=== PATIENT | male | born 1965 | race American Indian/Alaskan Native ===

== ENCOUNTER 2018-02-28 14:11 | Emergency (ER) | payer SELFPAY ==
[2018-02-28 14:56] LABS: Basophils # (Auto) 0.1 K/mm3 (0.0-0.1); Basophils % (Auto) 0.5 % (0.0-1.8); Eosinophils % (Auto) 0.1 % (0.0-4.3); Hematocrit 46.8 % (35.5-45.6); Hemoglobin 15.7 gm/dl (11.8-15.2); Lymphocytes # (Auto) 3.2 K/mm3 (1.2-5.4); Lymphocytes % (Auto) 26.3 % (13.4-35.0); Mean Corpuscular HGB Conc 34 % (32-34); Mean Corpuscular Hemoglobin 30 pg (28-32); Mean Corpuscular Volume 90 fl (84-94); Monocytes # (Auto) 0.3 K/mm3 (0.0-0.8); Monocytes % (Auto) 2.7 % (0.0-7.3); Platelet Count 148 K/mm3 (140-440); Red Blood Count 5.23 M/mm3 (3.65-5.03); Red Cell Distribution Width 13.7 % (13.2-15.2)
[2018-02-28 15:08] LABS: BUN/Creatinine Ratio 20; Blood Urea Nitrogen 16 mg/dL (9-20); Calcium 8.6 mg/dL (8.4-10.2); Hemolysis Index 14
[2018-02-28] MEDS ORDERED: NACL 0.9% 1000 ML 1,000 ML IV ONE ×2 (15:28→20:47)
[2018-02-28] MEDS ORDERED: ZOFRAN ONE ×2 (15:53→21:19)
[2018-02-28] MEDS ORDERED: ZOFRAN IV ONE ×2 (15:58→21:25)
[2018-02-28] MEDS ORDERED: ATIVAN IV ONE (16:12)
[2018-02-28] MEDS ORDERED: VITAMIN B-1 100 MG, FOLVITE 1 MG, INFUVITE 10 ML in NACL 0.9% 1000 ML 1,000 ML IV ONE (17:00)
[2018-02-28 18:00] LABS: Alanine Aminotransferase 19 units/L (7-56); Albumin 4.1 g/dL (3.9-5); BUN/Creatinine Ratio 21; Blood Urea Nitrogen 15 mg/dL (9-20); Calcium 7.9 mg/dL (8.4-10.2); Hemolysis Index 44; Lipase 46 units/L (13-60)
[2018-02-28 18:14] LABS: Bilirubin,Urine NEG (Negative); Blood,Urine SM (Negative); Color,Urine Yellow (Yellow); Mucus,Urine FEW /HPF; Urobilinogen,Urine < 2.0 mg/dL (<2.0)
[2018-02-28 18:15] LABS: Granular Casts,Urine 2 /LPF
[2018-02-28 18:30] LABS: Amphetamine Screen,Urine PRESUMPTIVE NEGATIVE; Benzodiazepines Screen,Urine PRESUMPTIVE NEGATIVE; Cannabinoid Screen,Urine PRESUMPTIVE NEGATIVE; Cocaine Screen,Urine PRESUMPTIVE NEGATIVE; Methadone Screen,Urine PRESUMPTIVE NEGATIVE; Opiate Screen,Urine PRESUMPTIVE NEGATIVE
[2018-02-28] MEDS ORDERED: ATIVAN IV PRN ×4 (19:00→19:07)
[2018-02-28] MEDS ORDERED: ATIVAN ONE (19:00)
--- NOTE | 2018-02-28 20:51 | Emergency Department Report ---
ED Alcohol HPI - General Chief Complaint: Alcohol Stated Complaint: DETOX Time Seen by Provider: 02/28/18 16:12 Source: family Mode of arrival: Ambulatory Limitations: No Limitations - History of Present Illness Initial Comments: Pt is a 52 yo male here for etoh intoxication . Pt states he drank more than a pint of Gin but denied any drug use. Pt states that he had a recent binge but had last drank before this 9 months ago. Pt states that he has no chest pain, sob, or known , liver problems. Pt states that he relapsed but wouldn't say why. Complaint: alcohol intoxication, alcohol withdrawal Last Drink: just [employer] (8am) Recent Trauma: No Associated Symptoms: vomiting - Related Data Home Medications Medication Instructions Recorded Confirmed Last Taken No Known Home Medications [No 07/11/15 07/11/15 Unknown Reported Home Medications] Allergies Allergy/AdvReac Type Severity Reaction Status Date / Time No Known Allergies Allergy Unverified 07/11/15 16:17 ED Review of Systems ROS: Stated complaint: DETOX Other details as noted in HPI Constitutional: denies: diaphoresis Eyes: denies: eye discharge ENT: denies: epistaxis Respiratory: no symptoms reported. denies: shortness of breath Cardiovascular: denies: chest pain Endocrine: denies: excessive sweating Gastrointestinal: vomiting. denies: abdominal pain Neurological: denies: numbness Psychiatric: denies: auditory hallucinations, visual hallucinations, homicidal thoughts, suicidal thoughts ED Past Medical Hx - Past Medical History Previous Medical History?: Yes Hx Hypertension: Yes Hx Psychiatric Treatment: Yes (ETOH abuse) Additional medical history: Alcohol abuse - Surgical History Past Surgical History?: Yes Additional Surgical History: right knee surgery - Social History Smoking Status: Never Smoker Substance Use Type: Alcohol, Prescribed - Medications Home Medications: Home Medications Medication Instructions Recorded Confirmed Last Taken Type No Known Home Medications [No 07/11/15 07/11/15 Unknown History Reported Home Medications] ED Physical Exam - General Limitations: No Limitations General appearance: alert - Head Head exam: Present: atraumatic - Eye Eye exam: Present: normal appearance, PERRL - ENT ENT exam: Present: normal exam - Neck Neck exam: Present: normal inspection - Respiratory Respiratory exam: Present: normal lung sounds bilaterally - Cardiovascular Cardiovascular Exam: Present: tachycardia - GI/Abdominal GI/Abdominal exam: Present: soft, normal bowel sounds. Absent: distended, tenderness, guarding, rebound - Extremities Exam Extremities exam: Present: normal inspection, full ROM - Back Exam Back exam: Present: normal inspection - Neurological Exam Neurological exam: Present: alert, oriented X3, CN II-XII intact - Psychiatric Psychiatric exam: Absent: homicidal ideation, suicidal ideation - Skin Skin exam: Present: warm, dry, intact ED Course Vital Signs 02/28/18 02/28/18 02/28/18 14:33 15:58 17:24 Temperature 98.4 F Pulse Rate 141 H 122 H 126 H Respiratory 22 20 18 Rate Blood Pressure 133/89 Blood Pressure 140/64 130/66 [Right] O2 Sat by Pulse 96 96 96 Oximetry - Reevaluation(s) Reevaluation #1: 02/28/18 20:51 Pt is metabolizing his etoh and is on the CIWA protocol. 02/28/18 20:53 will give fluid boluses; pt acutely intoxicated. ED Medical Decision Making - Lab Data Result diagrams: 02/28/18 14:40 02/28/18 16:38 - Medical Decision Making Pt 's heart rate is back in normal range; pt sleeping;pt's fiance here to take him home; will look into referral for etoh. Critical care attestation.: If time is entered above; I have spent that time in minutes in the direct care of this critically ill patient, excluding procedure time. ED Disposition Condition: Stable Referrals: PRIMARY CARE, [Primary Care Provider] - 3-5 Days
[2018-03-01 00:43] VITALS: BP 132/67
== END 2018-03-01 00:43 | disposition home or self-care (01) ==
LOC: ED 14:11
DX: F10.129 Alcohol abuse with intoxication, unspecified (principal); I10 Essential (primary) hypertension; Y90.9 Presence of alcohol in blood, level not specified
CPT/HCPCS: 36415; 80048; 80053; 80307; 81001; 82550; 83690; 83735; 85025; 93005; 93010; 96365; 96366; 96375; 96376; 99284; G0480; J2060; J2405; J3411; J7030; 80320

== ENCOUNTER 2018-03-01 11:48 | Emergency (ER) | payer SELFPAY ==
[2018-03-01] MEDS ORDERED: NACL 0.9% 1000 ML 1,000 ML ONE (12:31)
[2018-03-01] MEDS ORDERED: ATIVAN IV ONE (12:37)
[2018-03-01 12:45] LABS: Basophils % (Auto) 0.5 % (0.0-1.8); Eosinophils % (Auto) 0.2 % (0.0-4.3); Hematocrit 38.2 % (35.5-45.6); Hemoglobin 12.9 gm/dl (11.8-15.2); Lymphocytes # (Auto) 1.6 K/mm3 (1.2-5.4); Lymphocytes % (Auto) 18.5 % (13.4-35.0); Mean Corpuscular HGB Conc 34 % (32-34); Mean Corpuscular Hemoglobin 30 pg (28-32); Mean Corpuscular Volume 89 fl (84-94); Monocytes # (Auto) 0.3 K/mm3 (0.0-0.8); Monocytes % (Auto) 3.6 % (0.0-7.3); Platelet Count 100 K/mm3 (140-440); Red Blood Count 4.28 M/mm3 (3.65-5.03); Red Cell Distribution Width 13.3 % (13.2-15.2)
[2018-03-01] MEDS ORDERED: ZOFRAN IV ONE (12:45)
[2018-03-01] MEDS ORDERED: NACL 0.9% 1000 ML 1,000 ML IV ONE (12:45)
--- NOTE | 2018-03-01 12:45 | Emergency Department Report ---
HPI - General Chief Complaint: Alcohol Time Seen by Provider: 03/01/18 12:31 - HPI HPI: Room 22 The patient is a 52-year-old male presented with a chief complaint of alcoholism. The patient states he drinks approximately 1/5 of alcohol daily and last consumed yesterday morning. The patient came to the hospital yesterday for alcohol intoxication was given strong warnings to return should he develop symptoms of withdrawal. Patient states his morning the patient developed nausea vomiting and diaphoresis and began to feel "jittery" prompting him to come to the ED. Location: [See above] Duration: [See above] Quality: "Jittery" Severity: Moderate Modifying factors: [see above] Context: [see above] Mode of transportation: [not driving] ED Past Medical Hx - Past Medical History Previous Medical History?: Yes Hx Hypertension: Yes Hx Psychiatric Treatment: Yes (ETOH abuse) Additional medical history: Alcohol abuse - Surgical History Past Surgical History?: Yes Additional Surgical History: right knee surgery - Family History Family history: no significant - Social History Smoking Status: Never Smoker Substance Use Type: Alcohol (fifth of liquor daily) - Medications Home Medications: Home Medications Medication Instructions Recorded Confirmed Last Taken Type Ondansetron [Zofran Odt] 4 mg PO Q8HR 3 Days #12 tab.rapdis 02/28/18 Unknown Rx ED Review of Systems ROS: Stated complaint: ALCOHOL WITHDRAWALS Other details as noted in HPI Constitutional: diaphoresis Gastrointestinal: nausea, vomiting Neurological: other ("jittery") Physical Exam - Physical Exam Vital Signs: Vital Signs 03/01/18 11:53 Temperature 98.6 F Pulse Rate 103 H Respiratory 22 Rate Blood Pressure 166/95 O2 Sat by Pulse 97 Oximetry Physical Exam: GENERAL: The patient is well-developed well-nourished male lying on stretcher not appearing to be in acute distress. [] HEENT: Normocephalic. Atraumatic. Extraocular motions are intact. Patient has moist mucous membranes. NECK: Supple. Trachea midline CHEST/LUNGS: Clear to auscultation. There is no respiratory distress noted. HEART/CARDIOVASCULAR: Regular. There is no tachycardia. There is no gallop rub or murmur. ABDOMEN: Abdomen is soft, nontender. Patient has normal bowel sounds. There is no abdominal distention. SKIN: There is no rash. There is no edema. There is no diaphoresis. NEURO: The patient is awake, alert, and oriented. The patient is cooperative. The patient has no focal neurologic deficits. The patient has normal speech. No tremulousness noted MUSCULOSKELETAL: There is no evidence of acute injury. ED Course Vital Signs 03/01/18 11:53 Temperature 98.6 F Pulse Rate 103 H Respiratory 22 Rate Blood Pressure 166/95 O2 Sat by Pulse 97 Oximetry - Consultations Consultation #1: 03/01/18 13:43 Case discussed with mental health cosmetic sales consultant (Krystal)-has facility the patient can be sent to today ED Medical Decision Making - Lab Data Result diagrams: 03/01/18 12:22 03/01/18 12:22 - Differential Diagnosis alcoholism Critical care attestation.: If time is entered above; I have spent that time in minutes in the direct care of this critically ill patient, excluding procedure time. ED Disposition Clinical Impression: Alcoholism Disposition: DC/TX-70 ANOTHER TYPE HLTHCARE Is pt being admited?: No Does the pt Need Aspirin: No Condition: Stable Instructions: Abuse of Alcohol (ED), Alcohol Intoxication (ED) Additional Instructions: Return to the emergency department immediately should you develop worsening symptoms, fever, inability to tolerate food or liquid or any other concerns. Time of Disposition: 13:45
[2018-03-01 12:46] LABS: BUN/Creatinine Ratio 20; Blood Urea Nitrogen 12 mg/dL (9-20); Calcium 8.9 mg/dL (8.4-10.2); Hemolysis Index 6
[2018-03-01] MEDS ORDERED: ATIVAN IV PRN ×3 (12:54)
[2018-03-01] MEDS ORDERED: K-DUR PO ONE (13:43)
[2018-03-01] MEDS ORDERED: ZOFRAN ONE (15:15)
[2018-03-01 15:46] VITALS: BP 165/96
== END 2018-03-01 15:56 | disposition other institution (70) ==
LOC: ED 11:48
DX: F10.20 Alcohol dependence, uncomplicated (principal); I10 Essential (primary) hypertension; Y90.9 Presence of alcohol in blood, level not specified
CPT/HCPCS: 36415; 80048; 85025; 96361; 96374; 96375; 99283; G0480; J2060; J2405; J7030; 80320

== ENCOUNTER 2018-04-08 05:38 | Emergency (ER) | payer SELFPAY ==
[2018-04-08] MEDS ORDERED: VITAMIN B-1 100 MG in NACL 0.9% 50 ML IV ONE (06:00)
[2018-04-08] MEDS ORDERED: ATIVAN IV ONE ×2 (06:00→06:23)
[2018-04-08] MEDS ORDERED: NACL 0.9% 1000 ML 1,000 ML IV ONE ×2 (06:00→06:17)
[2018-04-08] MEDS ORDERED: VITAMIN B-1 100 MG, FOLVITE 1 MG, INFUVITE 10 ML, MAGNESIUM SULFATE 2 GM in NACL 0.9% 1... IV ONE (06:17)
--- NOTE | 2018-04-08 06:23 | Emergency Department Report ---
HPI - General Chief Complaint: Alcohol Time Seen by Provider: 04/08/18 06:11 - HPI HPI: Room 6 The patient is a 52-year-old male presenting with a chief complaint of alcohol withdrawal. The patient states he normally consumes approximately 1 pint of alcohol daily. The patient states he attempted to wean himself off alcohol the past 3-4 days gradually decreasing the amount he consumes. Patient states his last consumption occurred at 23:00 last night. Patient states since then he's had nausea and vomiting, shaking and he feels dehydrated as well as confused at times. The patient states he's been through alcoholic withdrawal in the past and this feels the same. Location: [See above] Duration: [See above] Quality: Nausea, Severity: Moderate Modifying factors: [see above] Context: [see above] Mode of transportation: [not driving] ED Past Medical Hx - Past Medical History Previous Medical History?: Yes Hx Hypertension: Yes Hx Psychiatric Treatment: Yes (ETOH abuse) Additional medical history: Alcohol abuse - Surgical History Past Surgical History?: Yes Additional Surgical History: right knee surgery - Family History Family history: no significant - Social History Smoking Status: Never Smoker Substance Use Type: None (denies illicit drug use), Alcohol (approximately 1 pint of alcohol daily) - Medications Home Medications: Home Medications Medication Instructions Recorded Confirmed Last Taken Type Ondansetron [Zofran Odt] 4 mg PO Q8HR 3 Days #12 tab.rapdis 02/28/18 Unknown Rx Valsartan [Diovan] 160 mg PO QDAY #30 tablet 03/01/18 Unknown Rx chlordiazePOXIDE [Librium] 25 mg PO Q8H #3 capsule 03/01/18 Unknown Rx Ondansetron [Zofran ODT TAB] 8 mg PO Q8HR #20 tab.rapdis 04/08/18 Unknown Rx chlordiazePOXIDE [Librium] 25 mg PO BID #14 capsule 04/08/18 Unknown Rx ED Review of Systems ROS: Stated complaint: ALCOHOL DETOX Other details as noted in HPI Constitutional: diaphoresis Gastrointestinal: nausea, vomiting Neurological: confusion Physical Exam - Physical Exam Vital Signs: Vital Signs 04/08/18 05:43 Temperature 99.0 F Pulse Rate 123 H Respiratory 20 Rate Blood Pressure 158/102 Blood Pressure 158/102 [Right] O2 Sat by Pulse 96 Oximetry Physical Exam: GENERAL: The patient is well-developed well-nourished male sitting on stretcher not appearing to be in acute distress. [] HEENT: Normocephalic. Atraumatic. Extraocular motions are intact. Patient has moist mucous membranes. NECK: Supple. Trachea midline CHEST/LUNGS: Clear to auscultation. There is no respiratory distress noted. HEART/CARDIOVASCULAR: Regular. There is tachycardia. There is no gallop rub or murmur. ABDOMEN: Abdomen is soft, nontender. Patient has normal bowel sounds. There is no abdominal distention. SKIN: There is no rash. There is no edema. There is no diaphoresis. NEURO: The patient is awake, alert, and oriented. The patient is cooperative. The patient has no focal neurologic deficits. The patient has normal speech. Cranial nerves II through XII grossly intact, no drift. Mild tremulousness noted MUSCULOSKELETAL: There is no evidence of acute injury. ED Course Vital Signs 04/08/18 05:43 Temperature 99.0 F Pulse Rate 123 H Respiratory 20 Rate Blood Pressure 158/102 Blood Pressure 158/102 [Right] O2 Sat by Pulse 96 Oximetry ED Medical Decision Making - Lab Data Result diagrams: 04/08/18 06:35 04/08/18 06:35 - Differential Diagnosis alcohol withdrawal Critical care attestation.: If time is entered above; I have spent that time in minutes in the direct care of this critically ill patient, excluding procedure time. ED Disposition Clinical Impression: Alcoholism, Alcohol withdrawal Disposition: DC-01 TO HOME OR SELFCARE Is pt being admited?: No Does the pt Need Aspirin: No Condition: Stable Instructions: Abuse of Alcohol (ED), At-Risk Alcohol Use (ED), Alcohol Withdrawal (ED) Additional Instructions: Return to the emergency department immediately should you develop worsening symptoms, fever, inability to tolerate food or liquid or any other concerns. Prescriptions: chlordiazePOXIDE [Librium] 25 mg PO BID #14 capsule Ondansetron [Zofran ODT TAB] 8 mg PO Q8HR #20 tab.rapdis Referrals: PRIMARY CARE, [Primary Care Provider] - 3-5 Days [facility] [Outside] - [place] (Please follow up at the [facility] or [facility] referral that was provided to you for further management) Time of Disposition: 11:15
[2018-04-08] MEDS ORDERED: ATIVAN IV PRN ×3 (06:25)
[2018-04-08] MEDS ORDERED: ZOFRAN ONE (06:38)
[2018-04-08] MEDS ORDERED: ZOFRAN IV ONE (06:52)
[2018-04-08 06:57] LABS: Basophils # (Auto) 0.1 K/mm3 (0.0-0.1); Basophils % (Auto) 0.8 % (0.0-1.8); Eosinophils % (Auto) 0.2 % (0.0-4.3); Hematocrit 40.8 % (35.5-45.6); Hemoglobin 13.8 gm/dl (11.8-15.2); Lymphocytes # (Auto) 1.9 K/mm3 (1.2-5.4); Lymphocytes % (Auto) 27.4 % (13.4-35.0); Mean Corpuscular HGB Conc 34 % (32-34); Mean Corpuscular Hemoglobin 30 pg (28-32); Mean Corpuscular Volume 88 fl (84-94); Monocytes # (Auto) 0.3 K/mm3 (0.0-0.8); Red Blood Count 4.63 M/mm3 (3.65-5.03); Red Cell Distribution Width 14.5 % (13.2-15.2)
[2018-04-08] MEDS ORDERED: MAGNESIUM SULFATE 2GM/50ML 2 GM/50 ML BAG IV ONE (07:00)
[2018-04-08] MEDS ORDERED: VITAMIN B-1 100 MG, FOLVITE 1 MG, INFUVITE 10 ML in NACL 0.9% 1000 ML 1,000 ML IV ONE (07:00)
[2018-04-08 07:11] LABS: BUN/Creatinine Ratio 39; Blood Urea Nitrogen 27 mg/dL (9-20); Calcium 9.3 mg/dL (8.4-10.2); Hemolysis Index 5
[2018-04-08 07:25] VITALS: BP 151/93
[2018-04-08 08:05] LABS: Platelet Count 81 K/mm3 (140-440)
[2018-04-08 08:36] LABS: Bilirubin,Urine NEG (Negative); Blood,Urine SM (Negative); Color,Urine Yellow (Yellow); Hyaline Casts,Urine 1 /LPF; Mucus,Urine FEW /HPF; Urobilinogen,Urine < 2.0 mg/dL (<2.0); WBC,Urine < 1.0 /HPF (0.0-6.0)
[2018-04-08 08:48] LABS: Amphetamine Screen,Urine PRESUMPTIVE NEGATIVE; Benzodiazepines Screen,Urine PRESUMPTIVE NEGATIVE; Cannabinoid Screen,Urine PRESUMPTIVE NEGATIVE; Cocaine Screen,Urine PRESUMPTIVE NEGATIVE; Methadone Screen,Urine PRESUMPTIVE NEGATIVE; Opiate Screen,Urine PRESUMPTIVE NEGATIVE
== END 2018-04-08 11:50 | disposition home or self-care (01) ==
LOC: ED 05:38
DX: F10.239 Alcohol dependence with withdrawal, unspecified (principal); I10 Essential (primary) hypertension
CPT/HCPCS: 36415; 80048; 80307; 81001; 83735; 85025; 96365; 96366; 96368; 96375; 99283; G0480; J2060; J2405; J3411; J3475; J7030; 80320; 93005; 93010

== ENCOUNTER 2019-01-11 21:24 | Emergency (ER) | payer OTHER, SELFPAY ==
[2019-01-11] MEDS ORDERED: ATIVAN IV ONE (21:48)
--- NOTE | 2019-01-11 21:49 | Emergency Department Report ---
ED Alcohol HPI - General Chief Complaint: Alcohol Stated Complaint: MH EVAL/DEPRESSION Time Seen by Provider: 01/11/19 21:48 Source: patient, family Mode of arrival: Ambulatory Limitations: No Limitations - History of Present Illness Initial Comments: Patient is a 53-year-old male that presents to [facility] with complaints of alcoholism and wanting detox and anxiety. Patient states his anxiety is worsening. Patient states when drinking heavily lately. Patient placement recurrently for about 2 weeks. Patient states that his last drink was this morning. Patient states his anxiety is worsening. Patient denies chest pain shortness of breath. Patient states he feels nervous. Patient states he would like to quit drinking and going into an inpatient detox program. Patient denies suicidal or homicidal ideation. Patient states he is feeling depressed. MD Complaint: alcohol dependence, desires rehab, medical clearance for det Time Since Last Drink: 12 -: hour(s) Chronic Alcohol Use: Yes Previous Visits for Alcohol Intoxication?: No Recent Trauma: No Associated Symptoms: nausea, depression. denies: vomiting, syncope, seizure, diaphoresis, tremors, abdominal pain, hematemesis, melena, suicidality Treatments Prior to Arrival: none - Related Data Previous Rx's Medication Instructions Recorded Last Taken Type Ondansetron [Zofran Odt] 4 mg PO Q8HR 3 Days #12 tab.rapdis 02/28/18 Unknown Rx chlordiazePOXIDE [Librium] 25 mg PO Q8H #3 capsule 03/01/18 Unknown Rx Ondansetron [Zofran ODT TAB] 8 mg PO Q8HR #20 tab.rapdis 04/08/18 Unknown Rx Valsartan [Diovan] 160 mg PO QDAY #30 tablet 04/08/18 Unknown Rx chlordiazePOXIDE [Librium] 25 mg PO BID #14 capsule 04/08/18 Unknown Rx Allergies Allergy/AdvReac Type Severity Reaction Status Date / Time No Known Allergies Allergy Unverified 07/11/15 16:17 ED Review of Systems ROS: Stated complaint: MH EVAL/DEPRESSION Other details as noted in HPI Constitutional: denies: chills, fever Eyes: denies: eye pain, eye discharge, vision change ENT: denies: ear pain, throat pain Respiratory: denies: cough, shortness of breath, wheezing Cardiovascular: denies: chest pain, palpitations Endocrine: no symptoms reported Gastrointestinal: denies: abdominal pain, nausea, diarrhea Genitourinary: denies: urgency, dysuria Musculoskeletal: denies: back pain, joint swelling, arthralgia Skin: denies: rash, lesions Neurological: denies: headache, weakness, paresthesias Psychiatric: anxiety, depression. denies: auditory hallucinations, visual hallucinations, homicidal thoughts, suicidal thoughts Hematological/Lymphatic: denies: easy bleeding, easy bruising ED Past Medical Hx - Past Medical History Previous Medical History?: Yes Hx Hypertension: Yes Hx Psychiatric Treatment: Yes (ETOH abuse) Additional medical history: Alcohol abuse - Surgical History Past Surgical History?: Yes Additional Surgical History: right knee surgery - Family History Family history: no significant - Social History Smoking Status: Never Smoker Substance Use Type: Alcohol - Medications Home Medications: Home Medications Medication Instructions Recorded Confirmed Last Taken Type Ondansetron [Zofran Odt] 4 mg PO Q8HR 3 Days #12 tab.rapdis 02/28/18 Unknown Rx chlordiazePOXIDE [Librium] 25 mg PO Q8H #3 capsule 03/01/18 Unknown Rx Ondansetron [Zofran ODT TAB] 8 mg PO Q8HR #20 tab.rapdis 04/08/18 Unknown Rx Valsartan [Diovan] 160 mg PO QDAY #30 tablet 04/08/18 Unknown Rx chlordiazePOXIDE [Librium] 25 mg PO BID #14 capsule 04/08/18 Unknown Rx ED Physical Exam - General Limitations: No Limitations General appearance: alert, in no apparent distress - Head Head exam: Present: atraumatic, normocephalic - Eye Eye exam: Present: normal appearance - ENT ENT exam: Present: mucous membranes dry - Neck Neck exam: Present: normal inspection - Respiratory Respiratory exam: Present: normal lung sounds bilaterally. Absent: respiratory distress - Cardiovascular Cardiovascular Exam: Present: regular rate, normal rhythm. Absent: systolic murmur, diastolic murmur, rubs, gallop - GI/Abdominal GI/Abdominal exam: Present: soft, normal bowel sounds. Absent: distended, tenderness, guarding - Rectal Rectal exam: Present: deferred - Extremities Exam Extremities exam: Present: normal inspection - Back Exam Back exam: Present: normal inspection - Neurological Exam Neurological exam: Present: alert, oriented X3 - Psychiatric Psychiatric exam: Present: anxious. Absent: homicidal ideation, suicidal ideation - Skin Skin exam: Present: warm, dry, intact, normal color. Absent: rash ED Course Vital Signs 01/11/19 22:05 Temperature 99.1 F Pulse Rate 132 H Respiratory 19 Rate Blood Pressure 131/101 [Right] O2 Sat by Pulse 97 Oximetry - Reevaluation(s) Reevaluation #1: Patient's initial evaluation done. Patient is notably anxious. Patient will be given Ativan 2 mg. Patient also given saline bolus and a banana bag. 01/11/19 20:48 Mental health consult. Patient resting. No seizure activity 01/12/19 00:55 saw Patient. Mental health provided resources for patient to go to detox as an outpatient. Patient is medically clear. Patient was discharged home once the patient has received all his banana bag and fluids 01/12/19 01:42 Patient given all discharge instructions. Patient given mental health/rehab resources. Patient voiced understanding of all discharge and resource information. Patient was understanding of all discharge instructions. 01/12/19 02:43 ED Medical Decision Making - Lab Data Result diagrams: 01/11/19 22:02 01/11/19 22:02 - Medical Decision Making Patient is a 53-year-old male that presents emergency with complaints of anxiety and depression and wanting detox. Patient was seen by mental health and given outpatient resources. Patient is medically cleared and will be discharged home. Patient is stable for discharge. Patient received saline and a banana bag in the ER. Patient was also given Ativan for acute anxiety. Patient responded w ell to therapy. Patient stable for discharge. Patient will be discharged home. - Differential Diagnosis acute anxiety. . Depression. Substance abuse Critical care attestation.: If time is entered above; I have spent that time in minutes in the direct care of this critically ill patient, excluding procedure time. ED Disposition Clinical Impression: Anxiety, Alcohol abuse Depressed Qualifiers: Depression Type: unspecified Qualified Code(s): F32.9 - Major depressive disorder, single episode, unspecified Disposition: DC-01 TO HOME OR SELFCARE Is pt being admited?: No Does the pt Need Aspirin: No Condition: Stable Instructions: Anxiety (ED), Depression (ED), Alcohol Intoxication (ED), Abuse of Alcohol (ED), At-Risk Alcohol Use (ED), Alcohol Withdrawal (ED) Additional Instructions: Patient to follow up with primary care in 2-3 days. Patient to go immediately to outpatient detox center. Patient to return to the condition worsens. Patient to avoid alcohol use. Patient to follow up with psychiatrist in 2-3 days. Patient to use resources given by mental health provider. Patient increase water. Referrals: YANDY OSCAR MD [Primary Care Provider] - 3-5 Days Time of Disposition: 02:47
[2019-01-11] MEDS ORDERED: NACL 0.9% 1000 ML 1,000 ML ONE (22:09)
[2019-01-11] MEDS ORDERED: NACL 0.9% 1000 ML 1,000 ML IV ONE (22:11)
[2019-01-11 22:24] LABS: Basophils % (Auto) 0.6 % (0.0-1.8); Hematocrit 42.3 % (35.5-45.6); Hemoglobin 14.6 gm/dl (11.8-15.2); Lymphocytes # (Auto) 1.8 K/mm3 (1.2-5.4); Lymphocytes % (Auto) 37.8 % (13.4-35.0); Mean Corpuscular HGB Conc 35 % (32-34); Mean Corpuscular Volume 88 fl (84-94); Monocytes # (Auto) 0.2 K/mm3 (0.0-0.8); Monocytes % (Auto) 4.3 % (0.0-7.3); Platelet Count 124 K/mm3 (140-440); Red Blood Count 4.82 M/mm3 (3.65-5.03); Red Cell Distribution Width 15.1 % (13.2-15.2)
[2019-01-11 22:34] LABS: BUN/Creatinine Ratio 24; Blood Urea Nitrogen 17 mg/dL (9-20); Calcium 8.7 mg/dL (8.4-10.2); Hemolysis Index 63
[2019-01-12] MEDS ORDERED: ATIVAN IV PRN ×3 (00:34)
[2019-01-12] MEDS ORDERED: VITAMIN B-1 100 MG, FOLVITE 1 MG, INFUVITE 10 ML in NACL 0.9% 1000 ML 1,000 ML IV ONE (00:47)
[2019-01-12] MEDS ORDERED: FOLVITE 1 MG, INFUVITE 10 ML in NACL 0.9% 1000 ML 1,000 ML IV ONE (01:15)
[2019-01-12] MEDS ORDERED: VITAMIN B-1 PO ONE (01:15)
[2019-01-12 02:52] VITALS: BP 142/98
== END 2019-01-12 03:35 | disposition home or self-care (01) ==
LOC: ED 21:24
DX: F41.9 Anxiety disorder, unspecified (principal); F32.9 Major depressive disorder, single episode, unspecified; F10.10 Alcohol abuse, uncomplicated; I10 Essential (primary) hypertension
CPT/HCPCS: 36415; 80048; 85025; 96365; 96375; 96376; 99284; G0480; J2060; J7030; 80320

== ENCOUNTER 2019-08-23 06:40 | Inpatient (IN) | payer OTHER ==
[2019-08-23] MEDS ORDERED: NACL 0.9% 1000 ML 1,000 ML ONE (06:58)
[2019-08-23] MEDS ORDERED: ATIVAN IV ONE (07:11)
[2019-08-23] MEDS ORDERED: NACL 0.9% 1000 ML 1,000 ML IV ONE (07:11)
[2019-08-23] MEDS ORDERED: ATIVAN ONE ×2 (07:12→14:46)
[2019-08-23] MEDS ORDERED: ATIVAN IV PRN ×2 (07:21)
--- NOTE | 2019-08-23 07:30 | Emergency Department Report ---
HPI - General Chief Complaint: Alcohol Time Seen by Provider: 08/23/19 07:20 - HPI HPI: 54-year-old -Irish male presents to the emergency department through triage with complaint of nausea and alcohol withdrawal. The patient just finished a seven-day drinking binge and last had a drink about 3 hours ago. He does have a history of going on alcohol binges and having some subsequent alcohol withdrawal symptoms. He says that he did have a alcohol withdrawal seizure many years ago. He otherwise denies any past medical history. The patient presented to the emergency department, in triage, with a heart rate of 150 bpm. However it went up to about 230 bpm by the time he made it to room 22. He denies any chest pain, shortness of breath, palpitations, fever. He has not taken anything for her symptoms prior to presentation. He denies any illicit drug use. ED Past Medical Hx - Past Medical History Previous Medical History?: Yes Hx Hypertension: Yes Hx Psychiatric Treatment: Yes (ETOH abuse) Additional medical history: Alcohol abuse - Surgical History Past Surgical History?: Yes Additional Surgical History: right knee surgery - Social History Smoking Status: Never Smoker Substance Use Type: Alcohol - Medications Home Medications: Home Medications Medication Instructions Recorded Confirmed Last Taken Type Ondansetron [Zofran Odt] 4 mg PO Q8HR 3 Days #12 tab.rapdis 02/28/18 Unknown Rx chlordiazePOXIDE [Librium] 25 mg PO Q8H #3 capsule 03/01/18 Unknown Rx Ondansetron [Zofran ODT TAB] 8 mg PO Q8HR #20 tab.rapdis 04/08/18 Unknown Rx Valsartan [Diovan] 160 mg PO QDAY #30 tablet 04/08/18 Unknown Rx chlordiazePOXIDE [Librium] 25 mg PO BID #14 capsule 04/08/18 Unknown Rx ED Review of Systems ROS: Stated complaint: ALCOHOL WITHDRAWL Other details as noted in HPI Comment: All other systems reviewed and negative Constitutional: denies: chills, fever Eyes: denies: eye pain, vision change ENT: denies: ear pain, throat pain Respiratory: denies: cough, shortness of breath Cardiovascular: denies: chest pain, palpitations Gastrointestinal: nausea. denies: abdominal pain, vomiting Genitourinary: denies: dysuria, discharge Musculoskeletal: denies: back pain, arthralgia Skin: denies: rash, lesions Neurological: denies: headache, weakness Physical Exam - Physical Exam Vital Signs: Vital Signs 08/23/19 06:42 Temperature 98.1 F Pulse Rate 150 H Respiratory 20 Rate Blood Pressure 144/98 O2 Sat by Pulse 96 Oximetry Physical Exam: GENERAL: The patient is well-developed well-nourished. HENT: Normocephalic. Atraumatic. Patient has moist mucous membranes. EYES: Extraocular motions are intact. Pupils equal reactive to light bilaterally. NECK: Supple. Trachea is midline. CHEST/LUNGS: Clear to auscultation. There is no respiratory distress noted. HEART/CARDIOVASCULAR: Regular. There is severe tachycardia. There is no murmur. ABDOMEN: Abdomen is soft, nontender. Patient has normal bowel sounds. There is no abdominal distention. SKIN: Skin is warm and dry. NEURO: The patient is awake, alert, and oriented. The patient is cooperative. The patient has no focal neurologic deficits. Normal speech. MUSCULOSKELETAL: There is no tenderness or deformity. There is no evidence of acute injury. ED Course Vital Signs 08/23/19 06:42 Temperature 98.1 F Pulse Rate 150 H Respiratory 20 Rate Blood Pressure 144/98 O2 Sat by Pulse 96 Oximetry - Consultations Consultation #1: I spoke to the physician event marketing assistant for [facility], Thania Emery, who says that they will see the patient has a consult this morning. 08/23/19 09:37 - Procedure Description Procedures done: Procedure: Electrical cardioversion. Patient was given 2 mg of Ativan. He was already on the environmental monitoring specialist, zole monitor and continuous pulse oximetry. The patient was given a 100 J defibrillation/shock and the heart rate came down to about 130 bpm from 230 bpm. The patient remains awake, alert. No obvious complications from this procedure. ED Medical Decision Making - Lab Data Result diagrams: 08/23/19 07:26 08/23/19 07:26 - EKG Data -: EKG Interpreted by Me - EKG Data When compared to previous EKG there are: previous EKG unavailable Interpretation: other (SVT rate of 230 bpm. There are some anterior / lateral ischemic changes from tachycardia but no STEMI.) Repeat EKG that was completed at 7:13 AM shows sinus tachycardia with some PVCs at a rate of 131 bpm. Normal axis. Normal intervals. No ST elevation ME. 08/23/19 07:32 - Radiology Data Radiology results: report reviewed, image reviewed interpreted by me: Chest x-ray does not show any acute process. There are no pleural effusions, obvious pneumonia and there is no pneumothorax. CTA CHEST WITH CONTRAST INDICATION : Supraventricular tachycardia. TECHNIQUE: Axial imaging performed through the chest, with contrast bolus timing set to maximize opacification of the pulmonary arteries. Sagittal and coronal reformatted images. 3-plane MIP reformatted images were obtained. All CT scans at this location are performed using CT dose reduction for ALARA by means of automated exposure control. 100 mL of intravenous contrast administered. COMPARISON: AP chest performed the same day FINDINGS: Bolus: Contrast bolus timing is adequate. PTE: No filling defect is present to suggest PTE. Mediastinum: Heart and great vessels appear normal. No pathologic mediastinal adenopathy. Moderate coronary artery calcifications are noted in the left anterior descending artery. Lungs: Lungs are clear. Bones: Degenerative changes in the spine with nothing acute. Upper abdomen: Limited images of the upper abdomen demonstrates moderate to severe fatty infiltration throughout the liver IMPRESSION: No evidence for pulmonary embolus. Unremarkable CT chest. Hepatic steatosis. - Medical Decision Making This patient presents to the emergency department initially just for the complaint of nausea associated with some alcohol intoxication and withdrawal after a 7 day drinking binge. He started off with a heart rate of 150 bpm in triage but it went up to about 230-240 bpm shortly afterwards upon arrival to room 22. An EKG was done and the patient was placed on a monitor and he appeared and SVT. He was given 6 mg, then 12 mg, of adenosine without any improvement. He was then given some Ativan and given a 100 J electrical cardioversion and went into sinus tachycardia at about 130 bpm. Chest x-ray was done that does not show any acute process. Labs were obtained that showed elevated d-dimer and hypokalemia with potassium of 3. He also has an alcohol level of 0.15. Because of the elevated d-dimer level, the patient was sent for a CT angiography of the chest which ultimately did not show any signs of pulmonary embolism and was unremarkable except for some chronic steatosis. Upon return from the CT imaging, the patient was once again in a tachyarrhythmia but it was irregular and this time appear consistent with atrial fibrillation with RVR. EKG confirmed this. Amiodarone was ordered but in the time it took for the medication to come from the pharmacy, the patient was given a dose of Cardizem with some improvement in the heart rate down to about 150-160 bpm. Within about 20 minutes, he appears to have converted back to a sinus rhythm with a heart rate of about 110 bpm. For this reason, the amiodarone and heparin that was ordered has been held, for now. I spoke with cardiology who will see the patient has a consult. The patient is also been accepted for admission by the hospitalist service. - Differential Diagnosis alcohol withdrawal, SVT, A. fib, electrolyte abnormalities, hyperthyroidism Critical Care Time: Yes Critical care time in (mins) excluding proc time.: 35 Critical care attestation.: If time is entered above; I have spent that time in minutes in the direct care of this critically ill patient, excluding procedure time. Critical care time was spent on this patient and doing his initial evaluation, multiple re- evaluations, ordering and interpretation of labs and imaging, discussion with cardiology, electrical cardioversion, doses of chronotropic antihypertensive medication. Critical Care Time: 35 minutes ED Disposition Clinical Impression: Atrial fibrillation with RVR, SVT (supraventricular tachycardia), Hypokalemia Alcohol withdrawal Qualifiers: Complication of substance-induced condition: with unspecified complication Qualified Code(s): F10.239 - Alcohol dependence with withdrawal, unspecified Disposition: DC-09 OP ADMIT IP TO THIS HOSP Is pt being admited?: Yes Condition: Serious Referrals: PRIMARY CARE, [Primary Care Provider] - 3-5 Days Time of Disposition: 09:38
[2019-08-23 07:46] LABS: Basophils # (Auto) 0.1 K/mm3 (0.0-0.1); Basophils % (Auto) 0.5 % (0.0-1.8); Lymphocytes # (Auto) 1.4 K/mm3 (1.2-5.4); Mean Corpuscular HGB Conc 36 % (32-34); Mean Corpuscular Volume 87 fl (84-94); Monocytes # (Auto) 0.3 K/mm3 (0.0-0.8); Platelet Count 165 K/mm3 (140-440); Red Blood Count 5.49 M/mm3 (3.65-5.03); Red Cell Distribution Width 14.2 % (13.2-15.2)
[2019-08-23 07:49] LABS: Hematocrit 47.9 % (35.5-45.6); Hemoglobin 17.4 gm/dl (11.8-15.2)
--- NOTE | 2019-08-23 07:54 | XRay Report ---
CHEST 1 VIEW INDICATION: Alcohol Intoxication. Altered mental status. COMPARISON: None FINDINGS: Support devices: None. Heart: Within normal limits. Lungs/Pleura: No acute air space or interstitial disease. Additional findings: None. IMPRESSION: Normal AP chest Signer Name: Anish Ivey Jr, MD Signed: 08/23/2019 7:50 AM Workstation Name: [id number]
[2019-08-23] MEDS ORDERED: VITAMIN B-1 100 MG, FOLVITE 1 MG, INFUVITE 10 ML in NACL 0.9% 1000 ML 1,000 ML IV ONE (08:00)
[2019-08-23] MEDS ORDERED: ZOFRAN IV ONE ×2 (08:09→09:19)
[2019-08-23] MEDS ORDERED: ZOFRAN ONE ×3 (08:09→14:37)
[2019-08-23 08:14] LABS: Alanine Aminotransferase 34 units/L (7-56); BUN/Creatinine Ratio 16; Blood Urea Nitrogen 13 mg/dL (9-20); Calcium 9.1 mg/dL (8.4-10.2); Hemolysis Index 8
[2019-08-23] MEDS ORDERED: K-DUR PO ONE ×3 (08:22→14:46)
[2019-08-23] MEDS ORDERED: CARDIZEM IV ONE (08:56)
[2019-08-23] MEDS ORDERED: CARDIZEM ONE (08:57)
[2019-08-23] MEDS ORDERED: HEPARIN 10,000 UNITS/10 ML IV ONE (09:08)
--- NOTE | 2019-08-23 09:22 | Cat Scan Report ---
CTA CHEST WITH CONTRAST INDICATION : Supraventricular tachycardia. TECHNIQUE: Axial imaging performed through the chest, with contrast bolus timing set to maximize opa cification of the pulmonary arteries. Sagittal and coronal reformatted images. 3-plane MIP reformatte d images were obtained. All CT scans at this location are performed using CT dose reduction for ALAR A by means of automated exposure control. 100 mL of intravenous contrast administered. COMPARISON: AP chest performed the same day FINDINGS: Bolus: Contrast bolus timing is adequate. PTE: No filling defect is present to suggest PTE. Mediastinum: Heart and great vessels appear normal. No pathologic mediastinal adenopathy. Moderate coronary artery calcifications are noted in the left anterior descending artery. Lungs: Lungs are clear. Bones: Degenerative changes in the spine with nothing acute. Upper abdomen: Limited images of the upper abdomen demonstrates moderate to severe fatty infiltratio n throughout the liver IMPRESSION: No evidence for pulmonary embolus. Unremarkable CT chest. Hepatic steatosis. Signer Name: Anish Ivey Jr, MD Signed: 08/23/2019 9:18 AM Workstation Name: [id number]
[2019-08-23] MEDS ORDERED: CORDARONE 900 MG in D5W 482 ML IV SCH (09:30)
[2019-08-23] MEDS ORDERED: CORDARONE 150 MG in D5W 97 ML IV ONE ×2 (09:30→11:09)
[2019-08-23 09:41] LABS: Partial Thromboplastin Time 25.6 Sec. (24.2-36.6)
[2019-08-23] MEDS: ATIVAN IV PRN ×3 (09:41→23:02)
[2019-08-23] MEDS ORDERED: HEPARIN/ 0.45% NACL-25,000 UNIT/500 ML 25,000 UNIT/500 ML BAG IV SCH (10:00)
--- NOTE | 2019-08-23 10:47 | Consultation ---
History of Present Illness Consult date: 08/23/19 Requesting physician: STEPHANIE OLIVAS Consult reason: arrhythmia History of present illness: The patient has a history of alcohol abuse. He claims that he has recently been binge drinking for 7 days. At about 5 AM this morning, he claims that he started feeling jittery, shaking, with palpitations and chest tightness. He then presented to the emergency department where he was noted to be in rapid SVT. After failed attempts at cardioversion with adenosine, he received a 100 J shock with conversion to sinus tachycardia. he was then to have a chest CTA. Upon arrival from CTA, he was noted to be in rapid atrial fibrillation. He received Diltiazem with conversion to sinus tachycardia. His labs reveal normal TSH with a potassium level of 3.0. Past History Past Medical History: hypertension, seizures (in the setting of alcohol withdrawal.) Past Surgical History: No surgical history Social history: alcohol abuse. denies: smoking Family history: denies: CAD Medications and Allergies Allergies Allergy/AdvReac Type Severity Reaction Status Date / Time No Known Allergies Allergy Unverified 07/11/15 16:17 Home Medications Medication Instructions Recorded Confirmed Last Taken Type Ondansetron [Zofran Odt] 4 mg PO Q8HR 3 Days #12 tab.rapdis 02/28/18 Unknown Rx chlordiazePOXIDE [Librium] 25 mg PO Q8H #3 capsule 03/01/18 Unknown Rx Ondansetron [Zofran ODT TAB] 8 mg PO Q8HR #20 tab.rapdis 04/08/18 Unknown Rx Valsartan [Diovan] 160 mg PO QDAY #30 tablet 04/08/18 Unknown Rx chlordiazePOXIDE [Librium] 25 mg PO BID #14 capsule 04/08/18 Unknown Rx Active Meds: Active Medications Thiamine HCl 100 mg/ Folic Acid 1 mg/ Multivitamins/Minerals 10 ml/ Sodium Chloride 1,011.2 mls @ 250 mls/hr IV ONCE ONE Stop: 08/23/19 12:02 Last Admin: 08/23/19 08:13 Dose: 250 mls/hr Documented by: Amiodarone HCl 900 mg/ (Dextrose) 500 mls @ 33.333 mls/hr IV DIRECT KWABENA; Protocol Heparin Sodium/Sodium Chloride (Heparin/ 0.45% Nacl-25,000 Unit/500 Ml) 25,000 unit in 500 mls @ 27 mls/hr IV TITR KWABENA; Protocol Lorazepam (Ativan) 2 mg IV Q1HR PRN PRN Reason: CIWA-Ar 8-15 Last Admin: 08/23/19 09:41 Dose: 2 mg Documented by: Lorazepam (Ativan) 4 mg IV Q1HR PRN PRN Reason: CIWA-Ar 16-25 Lorazepam (Ativan) 4 mg IV Q15MIN PRN PRN Reason: CIWA-Ar >25 Potassium Chloride (K-Dur) 40 meq PO Q2H KWABENA Stop: 08/23/19 15:01 Review of Systems Constitutional: no fever, no chills Ears, nose, mouth and throat: no ear pain, no ear discharge, no sore throat Cardiovascular: chest pain, palpitations, no lightheadedness, no shortness of breath Respiratory: no cough, no hemoptysis, no shortness of breath Gastrointestinal: no abdominal pain, no nausea, no vomiting, no diarrhea, no constipation Genitourinary Male: no dysuria, no urinary frequency Rectal: no pain, no bleeding Musculoskeletal: no neck stiffness, no neck pain, no myalgias Integumentary: no rash, no pruritis Neurological: no weakness, no parathesias, no headaches Endocrine: no cold intolerance, no heat intolerance Hematologic/Lymphatic: no easy bruising, no easy bleeding Allergic/Immunologic: no urticaria, no wheezing Physical Examination Vital Signs Temp Pulse Resp BP Pulse Ox 98.1 F 150 H 20 144/98 96 08/23/19 06:42 08/23/19 06:42 08/23/19 06:42 08/23/19 06:42 08/23/19 06:42 General appearance: no acute distress HEENT: Positive: EOMI, Normocephaly, Mucus Membranes Moist Neck: Positive: neck supple, trachea midline Cardiac: Positive: Reg Rate and Rhythm, S1/S2 Lungs: Positive: clear to auscultation Neuro: Positive: Grossly Intact Abdomen: Positive: Soft, Active Bowel Sounds. Negative: Tender Skin: Positive: Clear. Negative: Rash Musculoskeletal: Normal Range of Motion Extremities: Present: normal. Absent: edema Results 08/23/19 07:26 08/23/19 07:26 Cardiac Enzymes 08/23/19 Range/Units 07:26 AST 69 H (5-40) units/L Coagulation 08/23/19 Range/Units 07:26 PT 12.9 (12.2-14.9) Sec. INR 1.00 (0.87-1.13) APTT 25.6 (24.2-36.6) Sec. CBC 08/23/19 Range/Units 07:26 WBC 10.9 (4.5-11.0) K/mm3 RBC 5.49 H (3.65-5.03) M/mm3 Hgb 17.4 H (11.8-15.2) gm/dl Hct 47.9 H (35.5-45.6) % Plt Count 165 (140-440) K/mm3 Lymph # 1.4 (1.2-5.4) K/mm3 Floyd # 0.3 (0.0-0.8) K/mm3 Eos # 0.0 (0.0-0.4) K/mm3 Baso # 0.1 (0.0-0.1) K/mm3 Comprehensive Metabolic Panel 08/23/19 Range/Units 07:26 Sodium 135 L (137-145) mmol/L Potassium 3.0 L (3.6-5.0) mmol/L Chloride 83.4 L (98-107) mmol/L Carbon Dioxide 19 L (22-30) mmol/L BUN 13 (9-20) mg/dL Creatinine 0.8 (0.8-1.5) mg/dL Glucose 97 (75-100) mg/dL Calcium 9.1 (8.4-10.2) mg/dL AST 69 H (5-40) units/L ALT 34 (7-56) units/L Alkaline Phosphatase 61 (35-129) units/L Total Protein 8.9 H (6.3-8.2) g/dL Albumin 5.0 (3.9-5) g/dL - Imaging and Cardiology EKG: image reviewed EKG interpretations - Telemetry EKG Rhythm: Atrial Fibrillation (with RVR) - EKG Supraventricular dysrhythmia: atrial fibrillation Assessment and Plan Potassium supplementation. Initiate oral metoprolol. Initiate Lovenox. Obtain echocardiogram. I have strongly counseled the patient regarding the need to discontinue alcohol use. - Patient Problems (1) SVT (supraventricular tachycardia) Current Visit: Yes Status: Acute (2) Atrial fibrillation with RVR Current Visit: Yes Status: Acute (3) Alcohol withdrawal Current Visit: Yes Status: Acute Qualifiers: Qualified Code(s): F10.239 - Alcohol dependence with withdrawal, unspecified (4) Hypokalemia Current Visit: Yes Status: Acute (5) Hypertension Current Visit: Yes Status: Chronic Qualifiers: Hypertension type: essential hypertension Qualified Code(s): I10 - Essential (primary) hypertension
[2019-08-23] MEDS ORDERED: LOPRESSOR IV ONE ×2 (11:10→11:11)
[2019-08-23] MEDS: CORDARONE 900 MG in D5W 482 ML IV SCH (11:20)
--- NOTE | 2019-08-23 11:20 | History and Physical Report ---
History of Present Illness Date of examination: 08/23/19 Date of admission: 08/23/19 09:10 Chief complaint: Chest pain, nausea, vomiting History of present illness: Patient is 54 yo with with hypertension and alcohol abuse. He presents after a 7 day alcohol binge of a Fifth of Gin daily. patient states early this morning at he started feeling jittery, shaking, chest tightness, palpitations, nausea, vomiting. He then came to ED , was seen and evaluated where he was noted to have rapid SVT. After failed attempts at cardioversion with Adenosine, he received a 100 J shock with conversion to sinus tachycardia. Patient then went to Radiology for CTA Chest and on return, found to have atrial fibrillation with rapid ventricular response. He was given Cardizem and converted to sinus tachycardia. While I am getting history from patient in ED, heart rate noted to have increased to 235, EKG revealed ventricular tachycardia. He was given Amiodarone bolus, started on Amiodarone drip. Will admit to ICU. Past History Past Medical History: hypertension, seizures (in the setting of alcohol withdrawal.) Past Surgical History: No surgical history, Other (Right knee surg) Social history: single, alcohol abuse, full code. denies: smoking Family history: denies: CAD Medications and Allergies Allergies Allergy/AdvReac Type Severity Reaction Status Date / Time No Known Allergies Allergy Unverified 07/11/15 16:17 Home Medications Medication Instructions Recorded Confirmed Last Taken Type Ascorbic Acid [Vitamin C] 250 mg PO QDAY 08/23/19 08/23/19 08/21/19 History Calcium Carbonate/Vitamin D3 1 each PO DAILY 08/23/19 08/23/19 08/21/19 History [Calcium 600-Vit D3 500 Softgel] Cayenne 450 mg PO DAILY 08/23/19 08/23/19 08/21/19 History Magnesium Oxide 250 mg PO DAILY 08/23/19 08/23/19 08/21/19 History [place]-3 Fatty Acids/Fish Oil [Cvs 1 each PO DAILY 08/23/19 08/23/19 08/21/19 History Fish Oil 1,200 mg Softgel] Potassium Gluconate 99 mg PO QDAY 08/23/19 08/23/19 08/21/19 History Vitamin B Complex/Folic Acid 1 tab PO DAILY 08/23/19 08/23/19 08/21/19 History [B-Complex Tablet] Active Meds: Active Medications Thiamine HCl 100 mg/ Folic Acid 1 mg/ Multivitamins/Minerals 10 ml/ Sodium Chloride 1,011.2 mls @ 250 mls/hr IV ONCE ONE Stop: 08/23/19 12:02 Last Admin: 08/23/19 08:13 Dose: 250 mls/hr Documented by: Lorazepam (Ativan) 2 mg IV Q1HR PRN PRN Reason: CIWA-Ar 8-15 Last Admin: 08/23/19 09:41 Dose: 2 mg Documented by: Lorazepam (Ativan) 4 mg IV Q1HR PRN PRN Reason: CIWA-Ar 16-25 Lorazepam (Ativan) 4 mg IV Q15MIN PRN PRN Reason: CIWA-Ar >25 Metoprolol Tartrate (Lopressor) 50 mg PO Q6HR KWABENA Potassium Chloride (K-Dur) 40 meq PO Q2H KWABENA Stop: 08/23/19 15:31 Exam - Physical Exam Narrative exam: General : Not in acute distress, Lying in bed, HEENT: Normocephalic, atraumatic Neck: Supple, no JVD Heart: S1 and S2 reg tachy, no murmurs, rubs or gallop Lungs: Clear to auscultation, no rhonchi, no wheeze Abdomen: soft, non tender, non distended, normal BS, Exttremity: No edema, no clubbing, no cyanosis Neuro: Awake, alert, oriented X 3, no focal neurological signs,moves all ext Tremors both hands - Constitutional Vitals: Temp Pulse Resp BP Pulse Ox 98.1 F 120 H 22 136/95 94 08/23/19 06:42 08/23/19 10:30 08/23/19 10:30 08/23/19 10:30 08/23/19 10:00 Results - Labs CBC & Chem 7: 08/25/19 04:06 08/24/19 03:38 Labs: Abnormal lab results 08/23/19 08/23/19 08/23/19 Range/Units 07:26 07:26 07:26 RBC 5.49 H (3.65-5.03) M/mm3 Hgb 17.4 H (11.8-15.2) gm/dl Hct 47.9 H (35.5-45.6) % MCHC 36 H (32-34) % Lymph % (Auto) 13.0 L (13.4-35.0) % Seg Neutrophils % 83.5 H (40.0-70.0) % Seg Neutrophils # 9.1 H (1.8-7.7) K/mm3 D-Dimer (0-234) ng/mlDDU Sodium 135 L (137-145) mmol/L Potassium 3.0 L (3.6-5.0) mmol/L Chloride 83.4 L (98-107) mmol/L Carbon Dioxide 19 L (22-30) mmol/L AST 69 H (5-40) units/L Total Protein 8.9 H (6.3-8.2) g/dL Plasma/Serum Alcohol 0.15 H (0-0.07) % 08/23/19 Range/Units 07:26 RBC (3.65-5.03) M/mm3 Hgb (11.8-15.2) gm/dl Hct (35.5-45.6) % MCHC (32-34) % Lymph % (Auto) (13.4-35.0) % Seg Neutrophils % (40.0-70.0) % Seg Neutrophils # (1.8-7.7) K/mm3 D-Dimer 878.99 H (0-234) ng/mlDDU Sodium (137-145) mmol/L Potassium (3.6-5.0) mmol/L Chloride (98-107) mmol/L Carbon Dioxide (22-30) mmol/L AST (5-40) units/L Total Protein (6.3-8.2) g/dL Plasma/Serum Alcohol (0-0.07) % Assessment and Plan Ventricular tachycardia Admit to ICU Amiodarone given in ED, started on Amiodarone drip, Cardiology consulted, evaluated Atrial fibrillation with RVR Resolved after cardizem SVT Now resolved Alcohol withdrawal syndrome. [facility] protocol Thiamine, Folic acid, multivitamins Alcohol intoxication, abuse, dependence I counseled him on quitting alcohol [facility] protocol for withdrawal Hypokalemia Replace iv and po Hyponatremia Start iv fluids Recheck in am Hypertension Monitor BP Full code status
[2019-08-23] MEDS: K-DUR PO SCH ×3 (11:58→16:04)
[2019-08-23] MEDS ORDERED: D5NS 1,000 ML IV SCH (12:00)
[2019-08-23] MEDS ORDERED: TYLENOL PO PRN (12:00)
[2019-08-23] MEDS ORDERED: SODIUM CHLORIDE FLUSH SYRINGE 10 ML IV PRN (12:00)
[2019-08-23] MEDS ORDERED: ZOFRAN IV PRN (12:00)
[2019-08-23] MEDS: LOPRESSOR PO SCH ×3 (12:06→23:03)
[2019-08-23] MEDS: SODIUM CHLORIDE FLUSH SYRINGE 10 ML IV SCH ×2 (12:06→23:03)
[2019-08-23 12:26] LABS: Bilirubin,Urine NEG (Negative); Blood,Urine MOD (Negative); Color,Urine Yellow (Yellow); Mucus,Urine FEW /HPF; Urobilinogen,Urine < 2.0 mg/dL (<2.0)
[2019-08-23 12:27] LABS: Protein,Urine >2000 mg dL mg/dL (Negative)
[2019-08-23 12:33] LABS: Amphetamine Screen,Urine PRESUMPTIVE NEGATIVE; Benzodiazepines Screen,Urine PRESUMPTIVE NEGATIVE; Cannabinoid Screen,Urine PRESUMPTIVE NEGATIVE; Cocaine Screen,Urine PRESUMPTIVE NEGATIVE; Methadone Screen,Urine PRESUMPTIVE NEGATIVE; Opiate Screen,Urine PRESUMPTIVE NEGATIVE
[2019-08-23 15:35] LABS: BUN/Creatinine Ratio 16; Blood Urea Nitrogen 11 mg/dL (9-20); Calcium 8.5 mg/dL (8.4-10.2); Hemolysis Index 5
--- NOTE | 2019-08-23 20:46 | Consultation ---
History of Present Illness Consult date: 08/23/19 Requesting physician: BROOKLYN DAMICO Reason for consult: other (SVT, Afib) History of present illness: 54 yo who went on a drinking binge the past week or so, developed palpitations and chest tightness. He presented to ED in SVT. Adenosine did not help so he received 100J CV. He subsequently developed afib with rapid VR and is on amiodarone drip currently, and back in NSR at the moment. Feeling better. No SOB, fevers, chills, cough, sputum, hemoptysis. Active Medications Acetaminophen (Tylenol) 650 mg PO Q4H PRN PRN Reason: Pain MILD(1-3)/Fever >100.5/LOPEZ Dextrose/Sodium Chloride (D5ns) 1,000 mls @ 75 mls/hr IV DIRECT KWABENA Thiamine HCl 100 mg/ Sodium (Chloride) 51 mls @ 100 mls/hr IV QDAY KWABENA Folic Acid 1 mg/ Sodium (Chloride) 50.2 mls @ 200.8 mls/hr IV QDAY KWABENA Amiodarone HCl 900 mg/ (Dextrose) 500 mls @ 33.333 mls/hr IV DIRECT KWABENA; Protocol Last Infusion: 08/23/19 17:30 Dose: 0.5 mg/min, 16.667 mls/hr Documented by: Lorazepam (Ativan) 2 mg IV Q1HR PRN PRN Reason: CIWA-Ar 8-15 Last Admin: 08/23/19 14:50 Dose: 2 mg Documented by: Lorazepam (Ativan) 4 mg IV Q1HR PRN PRN Reason: CIWA-Ar 16-25 Lorazepam (Ativan) 4 mg IV Q15MIN PRN PRN Reason: CIWA-Ar >25 Metoprolol Tartrate (Lopressor) 50 mg PO Q6HR KWABENA Last Admin: 08/23/19 17:55 Dose: 50 mg Documented by: Morphine Sulfate (Morphine) 2 mg IV Q4H PRN PRN Reason: Pain, Moderate (4-6) Multivitamins (Theragran Tab) 1 each PO QDAY KWABENA Ondansetron HCl (Zofran) 4 mg IV Q8H PRN PRN Reason: Nausea And Vomiting Last Admin: 08/23/19 14:37 Dose: 4 mg Documented by: Sodium Chloride (Sodium Chloride Flush Syringe 10 Ml) 10 ml IV BID KWABENA Last Admin: 08/23/19 12:06 Dose: 10 ml Documented by: Sodium Chloride (Sodium Chloride Flush Syringe 10 Ml) 10 ml IV PRN PRN PRN Reason: LINE FLUSH Past History Past Medical History: hypertension, seizures (in the setting of alcohol withdrawal.) Past Surgical History: No surgical history Social history: single, alcohol abuse, full code. denies: smoking, prescription drug abuse Family history: denies: CAD Medications and Allergies Allergies Allergy/AdvReac Type Severity Reaction Status Date / Time No Known Allergies Allergy Unverified 07/11/15 16:17 Home Medications Medication Instructions Recorded Confirmed Last Taken Type Ascorbic Acid [Vitamin C] 250 mg PO QDAY 08/23/19 08/23/19 08/21/19 History Calcium Carbonate/Vitamin D3 1 each PO DAILY 08/23/19 08/23/19 08/21/19 History [Calcium 600-Vit D3 500 Softgel] [place] 450 mg PO DAILY 08/23/19 08/23/19 08/21/19 History Magnesium Oxide 250 mg PO DAILY 08/23/19 08/23/19 08/21/19 History [place]-3 Fatty Acids/Fish Oil [Cvs 1 each PO DAILY 08/23/19 08/23/19 08/21/19 History Fish Oil 1,200 mg Softgel] Potassium Gluconate 99 mg PO QDAY 08/23/19 08/23/19 08/21/19 History Vitamin B Complex/Folic Acid 1 tab PO DAILY 08/23/19 08/23/19 08/21/19 History [B-Complex Tablet] Active Meds: Active Medications Acetaminophen (Tylenol) 650 mg PO Q4H PRN PRN Reason: Pain MILD(1-3)/Fever >100.5/LOPEZ Dextrose/Sodium Chloride (D5ns) 1,000 mls @ 75 mls/hr IV DIRECT KWABENA Thiamine HCl 100 mg/ Sodium (Chloride) 51 mls @ 100 mls/hr IV QDAY KWABENA Folic Acid 1 mg/ Sodium (Chloride) 50.2 mls @ 200.8 mls/hr IV QDAY KWABENA Amiodarone HCl 900 mg/ (Dextrose) 500 mls @ 33.333 mls/hr IV DIRECT KWABENA; Protocol Last Infusion: 08/23/19 17:30 Dose: 0.5 mg/min, 16.667 mls/hr Documented by: Lorazepam (Ativan) 2 mg IV Q1HR PRN PRN Reason: CIWA-Ar 8-15 Last Admin: 08/23/19 14:50 Dose: 2 mg Documented by: Lorazepam (Ativan) 4 mg IV Q1HR PRN PRN Reason: CIWA-Ar 16-25 Lorazepam (Ativan) 4 mg IV Q15MIN PRN PRN Reason: CIWA-Ar >25 Metoprolol Tartrate (Lopressor) 50 mg PO Q6HR KWABENA Last Admin: 08/23/19 17:55 Dose: 50 mg Documented by: Morphine Sulfate (Morphine) 2 mg IV Q4H PRN PRN Reason: Pain, Moderate (4-6) Multivitamins (Theragran Tab) 1 each PO QDAY [facility] Ondansetron HCl (Zofran) 4 mg IV Q8H PRN PRN Reason: Nausea And Vomiting Last Admin: 08/23/19 14:37 Dose: 4 mg Documented by: Sodium Chloride (Sodium Chloride Flush Syringe 10 Ml) 10 ml IV BID [facility] Last Admin: 08/23/19 12:06 Dose: 10 ml Documented by: Sodium Chloride (Sodium Chloride Flush Syringe 10 Ml) 10 ml IV PRN PRN PRN Reason: LINE FLUSH Review of Systems All systems: negative Physical Examination Vital signs: Vital Signs Temp Pulse Resp BP Pulse Ox 98.1 F 150 H 20 144/98 96 08/23/19 06:42 08/23/19 06:42 08/23/19 06:42 08/23/19 06:42 08/23/19 06:42 General appearance: no acute distress, alert Eyes: non-icteric ENT: oropharynx moist Neck: supple Effort: normal Ascultation: Bilateral: clear Cardiovascular: regular rate and rhythm (no mrg) Gastrointestinal: normoactive bowel sounds, soft, non-tender, non-distended Extremities: no cyanosis, no edema, pink and warm Musculoskeletal: no deformities normal mental status, non-focal exam, pupils equal and round, CN II-XII normal mood appropriate, affect normal Results - Laboratory Findings CBC and BMP: 08/23/19 07:26 08/23/19 15:00 PT/INR, D-dimer PT 12.9 Sec. (12.2-14.9) 08/23/19 07:26 INR 1.00 (0.87-1.13) 08/23/19 07:26 D-Dimer 878.99 ng/mlDDU (0-234) H 08/23/19 07:26 Abnormal lab findings: Abnormal Labs 08/23/19 08/23/19 08/23/19 07:26 07:26 07:26 RBC 5.49 H Hgb 17.4 H Hct 47.9 H MCHC 36 H Lymph % (Auto) 13.0 L Seg Neutrophils % 83.5 H Seg Neutrophils # 9.1 H D-Dimer Sodium 135 L Potassium 3.0 L Chloride 83.4 L Carbon Dioxide 19 L Creatinine Glucose AST 69 H Total Protein 8.9 H Ur Specific [place] Plasma/Serum Alcohol 0.15 H 08/23/19 08/23/19 08/23/19 07:26 11:58 15:00 RBC Hgb Hct MCHC Lymph % (Auto) Seg Neutrophils % Seg Neutrophils # D-Dimer 878.99 H Sodium 135 L Potassium Chloride 89.5 L Carbon Dioxide 19 L Creatinine 0.7 L Glucose 109 H AST Total Protein Ur Specific [place] 1.054 H Plasma/Serum Alcohol - Diagnostic Findings Chest x-ray: report reviewed, image reviewed CT scan - chest: report reviewed, image reviewed Assessment and Plan Imp: 1. EtOH abuse and withdrawal 2. SVT and Afib with rapid VR due to #1 3. Hypokalemia 2/2 #1 4. Metabolic acidosis 2/2 #1 Rec: 1. IVFs 2. Echo 3. F/u cardiology recs 4. CIWA 5. K repleted; f/u labs in AM 6. Patient aware that his current issues are related to his EtOH abuse, cessation recommended 7. CTA chest unremarkable 8. Hopefully out of ICU in AM if remains in NSR Plan of care reviewed w/ patient, he understands/agrees
[2019-08-23] MEDS: MORPHINE IV PRN (23:01)
[2019-08-24 04:06] LABS: Basophils # (Auto) 0.1 K/mm3 (0.0-0.1); Basophils % (Auto) 0.4 % (0.0-1.8); Eosinophils # (Auto) 0.1 K/mm3 (0.0-0.4); Eosinophils % (Auto) 0.4 % (0.0-4.3); Hematocrit 42.4 % (35.5-45.6); Hemoglobin 14.5 gm/dl (11.8-15.2); Lymphocytes # (Auto) 2.1 K/mm3 (1.2-5.4); Lymphocytes % (Auto) 15.4 % (13.4-35.0); Mean Corpuscular HGB Conc 34 % (32-34); Mean Corpuscular Volume 89 fl (84-94); Monocytes # (Auto) 0.6 K/mm3 (0.0-0.8); Monocytes % (Auto) 4.3 % (0.0-7.3); Platelet Count 123 K/mm3 (140-440); Red Blood Count 4.75 M/mm3 (3.65-5.03); Red Cell Distribution Width 14.3 % (13.2-15.2)
[2019-08-24 04:26] LABS: BUN/Creatinine Ratio 15; Blood Urea Nitrogen 12 mg/dL (9-20); Calcium 8.7 mg/dL (8.4-10.2); Hemolysis Index 11
[2019-08-24] MEDS: ATIVAN IV PRN (04:43)
[2019-08-24] MEDS: MORPHINE IV PRN (04:43)
[2019-08-24] MEDS: LOPRESSOR PO SCH ×2 (05:59→11:53)
[2019-08-24] MEDS: CORDARONE 900 MG in D5W 482 ML IV SCH (09:39)
[2019-08-24] MEDS: THERAGRAN Tab PO SCH (09:49)
[2019-08-24] MEDS: SODIUM CHLORIDE FLUSH SYRINGE 10 ML IV SCH ×2 (09:50→21:42)
[2019-08-24] MEDS: VITAMIN B-1 100 MG in NACL 0.9% 50 ML IV SCH (09:51)
[2019-08-24] MEDS: FOLVITE 1 MG in NACL 0.9% 50 ML IV SCH (09:51)
--- NOTE | 2019-08-24 12:47 | Progress Note ---
Assessment and Plan Discontinue IV amiodarone. Continue beta lakshmi therapy. Echo pending. He will ultimately require ischemia evaluation. - Patient Problems (1) SVT (supraventricular tachycardia) Current Visit: Yes Status: Acute (2) Atrial fibrillation with RVR Current Visit: Yes Status: Acute (3) Ventricular tachycardia Current Visit: Yes Status: Acute (4) Alcohol withdrawal Current Visit: Yes Status: Acute Qualifiers: Qualified Code(s): F10.239 - Alcohol dependence with withdrawal, unspecified (5) Hypokalemia Current Visit: Yes Status: Acute (6) Hypertension Current Visit: Yes Status: Chronic Qualifiers: Hypertension type: essential hypertension Qualified Code(s): I10 - Essential (primary) hypertension Subjective Date of service: 08/24/19 Principal diagnosis: SVT, AF, VT Interval history: No complaint. He is in normal sinus rhythm this morning. Objective Vital Signs Last Vital Signs Temp 98.4 F 08/24/19 08:00 Pulse 82 08/24/19 11:53 Resp 18 08/24/19 11:20 BP 156/88 08/24/19 11:53 Pulse Ox 97 08/24/19 11:20 - Physical Examination General: No Apparent Distress HEENT: Positive: EOMI, Normocephaly, Mucus Membranes Moist Neck: Positive: neck supple, trachea midline Cardiac: Positive: Reg Rate and Rhythm, S1/S2 Lungs: Positive: Rhonchi Neuro: Positive: Grossly Intact Abdomen: Positive: Soft, Active Bowel Sounds. Negative: Tender Skin: Positive: Clear. Negative: Rash Musculoskeletal: Normal Range of Motion Extremities: Present: normal. Absent: edema - Labs and Meds CBC 08/24/19 Range/Units 03:38 WBC 13.6 H (4.5-11.0) K/mm3 RBC 4.75 (3.65-5.03) M/mm3 Hgb 14.5 (11.8-15.2) gm/dl Hct 42.4 (35.5-45.6) % Plt Count 123 L (140-440) K/mm3 Lymph # 2.1 (1.2-5.4) K/mm3 [place] # 0.6 (0.0-0.8) K/mm3 Eos # 0.1 (0.0-0.4) K/mm3 Baso # 0.1 (0.0-0.1) K/mm3 Comprehensive Metabolic Panel 08/23/19 08/24/19 Range/Units 15:00 03:38 Sodium 135 L 133 L (137-145) mmol/L Potassium 3.6 4.0 (3.6-5.0) mmol/L Chloride 89.5 L 93.6 L (98-107) mmol/L Carbon Dioxide 19 L 21 L (22-30) mmol/L BUN 11 12 (9-20) mg/dL Creatinine 0.7 L 0.8 (0.8-1.5) mg/dL Glucose 109 H 98 (75-100) mg/dL Calcium 8.5 8.7 (8.4-10.2) mg/dL - Imaging and Cardiology EKG: image reviewed - Telemetry EKG Rhythm: Sinus Rhythm
--- NOTE | 2019-08-24 14:59 | Event Note ---
Date: 08/24/19 Pt. transferred out of ICU. No active pulm issues. Will sign off.
--- NOTE | 2019-08-24 16:10 | Progress Note ---
Assessment and Plan Assessment and plan: Ventricular tachycardia Admit to ICU Amiodarone given in ED, started on Amiodarone drip, now completed Cardiology consulted, evaluated Atrial fibrillation with RVR Resolved after cardizem SVT Now resolved Alcohol withdrawal syndrome. Continue [facility] protocol Thiamine, Folic acid, multivitamins Alcohol intoxication, abuse, dependence I counseled him on quitting alcohol [facility] protocol for withdrawal Hypokalemia Replace iv and po Hyponatremia Continue iv fluids Recheck in am Hypertension Monitor BP Full code status History Interval history: Feels better No chest pain Hospitalist Physical - Physical exam Narrative exam: General : Not in acute distress, Lying in bed, HEENT: Normocephalic, atraumatic Neck: Supple, no JVD Heart: S1 and S2 reg no murmurs, rubs or gallop Lungs: Clear to auscultation, no rhonchi, no wheeze Abdomen: soft, non tender, non distended, normal BS, Exttremity: No edema, no clubbing, no cyanosis Neuro: Awake, alert, oriented X 3, no focal neurological signs,moves all ext Tremors both hands - Constitutional Vitals: Temp Pulse Resp BP Pulse Ox 98.4 F 80 18 156/88 97 08/24/19 08:00 08/24/19 12:00 08/24/19 11:20 08/24/19 11:53 08/24/19 11:20 General appearance: Present: no acute distress Results - Labs CBC & Chem 7: 08/25/19 04:06 08/24/19 03:38 Labs: Laboratory Last Values WBC 13.6 K/mm3 (4.5-11.0) H 08/24/19 03:38 RBC 4.75 M/mm3 (3.65-5.03) 08/24/19 03:38 Hgb 14.5 gm/dl (11.8-15.2) 08/24/19 03:38 Hct 42.4 % (35.5-45.6) 08/24/19 03:38 MCV 89 fl (84-94) 08/24/19 03:38 MCH 31 pg (28-32) 08/24/19 03:38 MCHC 34 % (32-34) 08/24/19 03:38 RDW 14.3 % (13.2-15.2) 08/24/19 03:38 Plt Count 123 K/mm3 (140-440) L 08/24/19 03:38 Lymph % (Auto) 15.4 % (13.4-35.0) 08/24/19 03:38 [place] % (Auto) 4.3 % (0.0-7.3) 08/24/19 03:38 Eos % (Auto) 0.4 % (0.0-4.3) 08/24/19 03:38 Baso % (Auto) 0.4 % (0.0-1.8) 08/24/19 03:38 Lymph # 2.1 K/mm3 (1.2-5.4) 08/24/19 03:38 [place] # 0.6 K/mm3 (0.0-0.8) 08/24/19 03:38 Eos # 0.1 K/mm3 (0.0-0.4) 08/24/19 03:38 Baso # 0.1 K/mm3 (0.0-0.1) 08/24/19 03:38 Seg Neutrophils % 79.5 % (40.0-70.0) H 08/24/19 03:38 Seg Neutrophils # 10.8 K/mm3 (1.8-7.7) H 08/24/19 03:38 PT 12.9 Sec. (12.2-14.9) 08/23/19 07:26 INR 1.00 (0.87-1.13) 08/23/19 07:26 APTT 25.6 Sec. (24.2-36.6) 08/23/19 07:26 D-Dimer 878.99 ng/mlDDU (0-234) H 08/23/19 07:26 Sodium 133 mmol/L (137-145) L 08/24/19 03:38 Potassium 4.0 mmol/L (3.6-5.0) 08/24/19 03:38 Chloride 93.6 mmol/L (98-107) L 08/24/19 03:38 Carbon Dioxide 21 mmol/L (22-30) L 08/24/19 03:38 Anion Gap 22 mmol/L 08/24/19 03:38 BUN 12 mg/dL (9-20) 08/24/19 03:38 Creatinine 0.8 mg/dL (0.8-1.5) 08/24/19 03:38 Estimated GFR > 60 ml/min 08/24/19 03:38 BUN/Creatinine Ratio 15 % 08/24/19 03:38 Glucose 98 mg/dL (75-100) 08/24/19 03:38 POC Glucose 93 (70-105) 08/23/19 16:12 Calcium 8.7 mg/dL (8.4-10.2) 08/24/19 03:38 Phosphorus 2.70 mg/dL (2.5-4.5) 08/23/19 15:00 Magnesium 2.20 mg/dL (1.7-2.3) 08/23/19 07:26 Total Bilirubin 0.90 mg/dL (0.1-1.2) 08/23/19 07:26 AST 69 units/L (5-40) H 08/23/19 07:26 ALT 34 units/L (7-56) 08/23/19 07:26 Alkaline Phosphatase 61 units/L (35-129) 08/23/19 07:26 Troponin T < 0.010 ng/mL (0.00-0.029) 08/23/19 07:26 Total Protein 8.9 g/dL (6.3-8.2) H 08/23/19 07:26 Albumin 5.0 g/dL (3.9-5) 08/23/19 07:26 Albumin/Globulin Ratio 1.3 % 08/23/19 07:26 TSH 2.500 mlU/mL (0.270-4.200) 08/23/19 07:26 Urine Color Yellow (Yellow) 08/23/19 11:58 Urine Turbidity Clear (Clear) 08/23/19 11:58 Urine pH 5.0 (5.0-7.0) 08/23/19 11:58 Ur Specific [place] 1.054 (1.003-1.030) H 08/23/19 11:58 Urine Protein >2000 mg dl mg/dL (Negative) 08/23/19 11:58 Urine Glucose (UA) Neg mg/dL (Negative) 08/23/19 11:58 Urine Ketones 80 mg/dL (Negative) 08/23/19 11:58 Urine Blood Mod (Negative) 08/23/19 11:58 Urine Nitrite Neg (Negative) 08/23/19 11:58 Urine Bilirubin Neg (Negative) 08/23/19 11:58 Urine Urobilinogen < 2.0 mg/dL (<2.0) 08/23/19 11:58 Ur Leukocyte Esterase Neg (Negative) 08/23/19 11:58 Urine WBC (Auto) 1.0 /HPF (0.0-6.0) 08/23/19 11:58 Urine RBC (Auto) 3.0 /HPF (0.0-6.0) 08/23/19 11:58 Urine Mucus Few /HPF 08/23/19 11:58 Urine Opiates Screen Presumptive negative 08/23/19 11:58 Urine Methadone Screen Presumptive negative 08/23/19 11:58 Ur Barbiturates Screen Presumptive negative 08/23/19 11:58 Ur Phencyclidine Scrn Presumptive negative 08/23/19 11:58 Ur Amphetamines Screen Presumptive negative 08/23/19 11:58 U Benzodiazepines Scrn Presumptive negative 08/23/19 11:58 Urine Cocaine Screen Presumptive negative 08/23/19 11:58 U Marijuana (THC) Screen Presumptive negative 08/23/19 11:58 Drugs of Abuse Note Disclamer 08/23/19 11:58 Plasma/Serum Alcohol 0.15 % (0-0.07) H 08/23/19 07:26 Active Medications - Current Medications Current Medications: Generic Name Dose Route Start Last Admin Trade Name Freq PRN Reason Stop Dose Admin Acetaminophen 650 mg 08/23/19 12:00 Tylenol PO Q4H PRN Pain MILD(1-3)/Fever >100.5/LOPEZ Amlodipine Besylate 5 mg 08/24/19 13:00 Norvasc PO QDAY KWABENA Dextrose/Sodium Chloride 1,000 mls @ 75 mls/hr 08/23/19 12:00 D5ns IV DIRECT KWABENA Thiamine HCl 100 mg/ Sodium 51 mls @ 100 mls/hr 08/24/19 10:00 08/24/19 09:51 Chloride IV 100 mls/hr QDAY KWABENA Administration Folic Acid 1 mg/ Sodium 50.2 mls @ 200.8 mls/hr 08/24/19 10:00 08/24/19 09:51 Chloride IV 200.8 mls/hr QDAY KWABENA Administration Lorazepam 2 mg 08/23/19 07:21 08/24/19 04:43 Ativan IV 2 mg Q1HR PRN Administration CIWA-Ar 8-15 Lorazepam 4 mg 08/23/19 07:21 Ativan IV Q1HR PRN CIWA-Ar 16-25 Lorazepam 4 mg 08/23/19 07:21 Ativan IV Q15MIN PRN CIWA-Ar >25 Metoprolol Tartrate 50 mg 08/23/19 12:00 08/24/19 11:53 Lopressor PO 50 mg Q6HR KWABENA Administration Morphine Sulfate 2 mg 08/23/19 12:00 08/24/19 04:43 Morphine IV 2 mg Q4H PRN Administration Pain, Moderate (4-6) Multivitamins 1 each 08/24/19 10:00 08/24/19 09:49 Theragran Tab PO 1 each QDAY KWABENA Administration Ondansetron HCl 4 mg 08/23/19 12:00 08/23/19 14:37 Zofran IV 4 mg Q8H PRN Administration Nausea And Vomiting Sodium Chloride 10 ml 08/23/19 12:00 08/24/19 09:50 Sodium Chloride Flush Syringe 10 Ml IV 10 ml BID KWABENA Administration Sodium Chloride 10 ml 08/23/19 12:00 Sodium Chloride Flush Syringe 10 Ml IV PRN PRN LINE FLUSH
[2019-08-24] MEDS: NORVASC PO SCH (18:52)
[2019-08-25] MEDS: LOPRESSOR PO SCH ×5 (00:09→23:11)
[2019-08-25] MEDS: MORPHINE IV PRN (02:21)
[2019-08-25] MEDS: NAPROSYN PO PRN ×2 (04:37→23:12)
[2019-08-25 05:28] LABS: Hematocrit 43.9 % (35.5-45.6); Hemoglobin 15.2 gm/dl (11.8-15.2)
[2019-08-25] MEDS: NORVASC PO SCH (10:23)
[2019-08-25] MEDS: THERAGRAN Tab PO SCH (10:24)
[2019-08-25] MEDS: SODIUM CHLORIDE FLUSH SYRINGE 10 ML IV SCH ×2 (10:24→22:50)
[2019-08-25] MEDS: FOLVITE 1 MG in NACL 0.9% 50 ML IV SCH (10:24)
[2019-08-25] MEDS: VITAMIN B-1 100 MG in NACL 0.9% 50 ML IV SCH (10:25)
--- NOTE | 2019-08-25 11:45 | Progress Note ---
Assessment and Plan Scheduled stress MPI in am. - Patient Problems (1) SVT (supraventricular tachycardia) Current Visit: Yes Status: Acute (2) Atrial fibrillation with RVR Current Visit: Yes Status: Acute (3) Ventricular tachycardia Current Visit: Yes Status: Acute (4) Alcohol withdrawal Current Visit: Yes Status: Acute Qualifiers: Qualified Code(s): F10.239 - Alcohol dependence with withdrawal, unspecified (5) Hypokalemia Current Visit: Yes Status: Acute (6) Hypertension Current Visit: Yes Status: Chronic Qualifiers: Hypertension type: essential hypertension Qualified Code(s): I10 - Essential (primary) hypertension Subjective Date of service: 08/25/19 Principal diagnosis: SVT, AF, VT Interval history: He feels fine. No new complaint. He is in normal sinus rhythm. Objective Vital Signs Temp Pulse Pulse Resp BP BP Pulse Ox 08/25/19 10:23 72 136/91 08/25/19 08:49 63 18 97 08/25/19 07:46 98.8 F 63 16 136/91 98 08/25/19 05:51 70 132/85 08/25/19 04:00 98.7 F 68 18 132/85 97 08/25/19 02:51 18 08/25/19 02:21 18 08/25/19 00:09 99 H 142/97 08/24/19 23:06 98.9 F 98 H 17 142/97 100 08/24/19 20:19 74 08/24/19 19:13 98.5 F 85 18 135/92 98 08/24/19 17:43 98.8 F 80 14 128/90 99 08/24/19 12:00 81 20 156/88 08/24/19 11:53 82 156/88 08/24/19 11:50 84 20 156/88 97 - Physical Examination General: No Apparent Distress HEENT: Positive: EOMI, Normocephaly, Mucus Membranes Moist Neck: Positive: neck supple, trachea midline Cardiac: Positive: Reg Rate and Rhythm, S1/S2 Lungs: Positive: clear to auscultation Neuro: Positive: Grossly Intact Abdomen: Positive: Soft, Active Bowel Sounds. Negative: Tender Skin: Positive: Clear. Negative: Rash Musculoskeletal: Normal Range of Motion Extremities: Present: normal. Absent: edema - Labs and Meds CBC 10/13/19 Range/Units 04:06 Hgb 15.2 (11.8-15.2) gm/dl Hct 43.9 (35.5-45.6) % Plt Count 102 L (140-440) K/mm3 - Imaging and Cardiology EKG: image reviewed - Telemetry EKG Rhythm: Sinus Rhythm
--- NOTE | 2019-08-25 15:14 | Progress Note ---
Assessment and Plan Assessment and plan: Ventricular tachycardia Admit to ICU Amiodarone given in ED, started on Amiodarone drip, now completed Cardiology consulted, evaluated for stress test in am continue Metoprolol Atrial fibrillation with RVR Resolved after cardizem SVT Now resolved Alcohol withdrawal syndrome. Continue [facility] protocol Cont Thiamine, Folic acid, multivitamins Alcohol intoxication, abuse, dependence I counseled him on quitting alcohol [facility]K protocol for withdrawal Hypokalemia Replace iv and po Hyponatremia Continue iv fluids Recheck in am Hypertension Monitor BP Full code status History Interval history: Feels better No chest pain Hospitalist Physical - Physical exam Narrative exam: General : Not in acute distress, Lying in bed, HEENT: Normocephalic, atraumatic Neck: Supple, no JVD Heart: S1 and S2 reg no murmurs, rubs or gallop Lungs: Clear to auscultation, no rhonchi, no wheeze Abdomen: soft, non tender, non distended, normal BS, Exttremity: No edema, no clubbing, no cyanosis Neuro: Awake, alert, oriented X 3, no focal neurological signs,moves all ext - Constitutional Vitals: Temp Pulse Resp BP Pulse Ox 98.8 F 88 18 139/76 99 08/25/19 07:46 08/25/19 12:56 08/25/19 08:49 08/25/19 12:56 08/25/19 12:55 General appearance: Present: no acute distress Results - Labs CBC & Chem 7: 08/25/19 04:06 08/24/19 03:38 Labs: Laboratory Last Values WBC 13.6 K/mm3 (4.5-11.0) H 08/24/19 03:38 RBC 4.75 M/mm3 (3.65-5.03) 08/24/19 03:38 Hgb 15.2 gm/dl (11.8-15.2) 08/25/19 04:06 Hct 43.9 % (35.5-45.6) 08/25/19 04:06 MCV 89 fl (84-94) 08/24/19 03:38 MCH 31 pg (28-32) 08/24/19 03:38 MCHC 34 % (32-34) 08/24/19 03:38 RDW 14.3 % (13.2-15.2) 08/24/19 03:38 Plt Count 102 K/mm3 (140-440) L 08/25/19 04:06 Lymph % (Auto) 15.4 % (13.4-35.0) 08/24/19 03:38 [place] % (Auto) 4.3 % (0.0-7.3) 08/24/19 03:38 Eos % (Auto) 0.4 % (0.0-4.3) 08/24/19 03:38 Baso % (Auto) 0.4 % (0.0-1.8) 08/24/19 03:38 Lymph # 2.1 K/mm3 (1.2-5.4) 08/24/19 03:38 [place] # 0.6 K/mm3 (0.0-0.8) 08/24/19 03:38 Eos # 0.1 K/mm3 (0.0-0.4) 08/24/19 03:38 Baso # 0.1 K/mm3 (0.0-0.1) 08/24/19 03:38 Seg Neutrophils % 79.5 % (40.0-70.0) H 08/24/19 03:38 Seg Neutrophils # 10.8 K/mm3 (1.8-7.7) H 08/24/19 03:38 PT 12.9 Sec. (12.2-14.9) 08/23/19 07:26 INR 1.00 (0.87-1.13) 08/23/19 07:26 APTT 25.6 Sec. (24.2-36.6) 08/23/19 07:26 D-Dimer 878.99 ng/mlDDU (0-234) H 08/23/19 07:26 Sodium 133 mmol/L (137-145) L 08/24/19 03:38 Potassium 4.0 mmol/L (3.6-5.0) 08/24/19 03:38 Chloride 93.6 mmol/L (98-107) L 08/24/19 03:38 Carbon Dioxide 21 mmol/L (22-30) L 08/24/19 03:38 Anion Gap 22 mmol/L 08/24/19 03:38 BUN 12 mg/dL (9-20) 08/24/19 03:38 Creatinine 0.8 mg/dL (0.8-1.5) 08/24/19 03:38 Estimated GFR > 60 ml/min 08/24/19 03:38 BUN/Creatinine Ratio 15 % 08/24/19 03:38 Glucose 98 mg/dL (75-100) 08/24/19 03:38 POC Glucose 93 (70-105) 08/23/19 16:12 Calcium 8.7 mg/dL (8.4-10.2) 08/24/19 03:38 Phosphorus 2.70 mg/dL (2.5-4.5) 08/23/19 15:00 Magnesium 2.20 mg/dL (1.7-2.3) 08/23/19 07:26 Total Bilirubin 0.90 mg/dL (0.1-1.2) 08/23/19 07:26 AST 69 units/L (5-40) H 08/23/19 07:26 ALT 34 units/L (7-56) 08/23/19 07:26 Alkaline Phosphatase 61 units/L (35-129) 08/23/19 07:26 Troponin T < 0.010 ng/mL (0.00-0.029) 08/23/19 07:26 Total Protein 8.9 g/dL (6.3-8.2) H 08/23/19 07:26 Albumin 5.0 g/dL (3.9-5) 08/23/19 07:26 Albumin/Globulin Ratio 1.3 % 08/23/19 07:26 TSH 2.500 mlU/mL (0.270-4.200) 08/23/19 07:26 Urine Color Yellow (Yellow) 08/23/19 11:58 Urine Turbidity Clear (Clear) 08/23/19 11:58 Urine pH 5.0 (5.0-7.0) 08/23/19 11:58 Ur Specific [place] 1.054 (1.003-1.030) H 08/23/19 11:58 Urine Protein >2000 mg dl mg/dL (Negative) 08/23/19 11:58 Urine Glucose (UA) Neg mg/dL (Negative) 08/23/19 11:58 Urine Ketones 80 mg/dL (Negative) 08/23/19 11:58 Urine Blood Mod (Negative) 08/23/19 11:58 Urine Nitrite Neg (Negative) 08/23/19 11:58 Urine Bilirubin Neg (Negative) 08/23/19 11:58 Urine Urobilinogen < 2.0 mg/dL (<2.0) 08/23/19 11:58 Ur Leukocyte Esterase Neg (Negative) 08/23/19 11:58 Urine WBC (Auto) 1.0 /HPF (0.0-6.0) 08/23/19 11:58 Urine RBC (Auto) 3.0 /HPF (0.0-6.0) 08/23/19 11:58 Urine Mucus Few /HPF 08/23/19 11:58 Urine Opiates Screen Presumptive negative 08/23/19 11:58 Urine Methadone Screen Presumptive negative 08/23/19 11:58 Ur Barbiturates Screen Presumptive negative 08/23/19 11:58 Ur Phencyclidine Scrn Presumptive negative 08/23/19 11:58 Ur Amphetamines Screen Presumptive negative 08/23/19 11:58 U Benzodiazepines Scrn Presumptive negative 08/23/19 11:58 Urine Cocaine Screen Presumptive negative 08/23/19 11:58 U Marijuana (THC) Screen Presumptive negative 08/23/19 11:58 Drugs of Abuse Note Disclamer 08/23/19 11:58 Plasma/Serum Alcohol 0.15 % (0-0.07) H 08/23/19 07:26 Active Medications - Current Medications Current Medications: Generic Name Dose Route Start Last Admin Trade Name Freq PRN Reason Stop Dose Admin Acetaminophen 650 mg 08/23/19 12:00 Tylenol PO Q4H PRN Pain MILD(1-3)/Fever >100.5/LOPEZ Amlodipine Besylate 5 mg 08/24/19 13:00 08/25/19 10:23 Norvasc PO 5 mg QDAY KWABENA Administration Dextrose/Sodium Chloride 1,000 mls @ 75 mls/hr 08/23/19 12:00 D5ns IV DIRECT KWABENA Thiamine HCl 100 mg/ Sodium 51 mls @ 100 mls/hr 08/24/19 10:00 08/25/19 10:25 Chloride IV 100 mls/hr QDAY KWABENA Administration Folic Acid 1 mg/ Sodium 50.2 mls @ 200.8 mls/hr 08/24/19 10:00 08/25/19 10:24 Chloride IV 200.8 mls/hr QDAY KWABENA Administration Lorazepam 2 mg 08/23/19 07:21 08/24/19 04:43 Ativan IV 2 mg Q1HR PRN Administration CIWA-Ar 8-15 Lorazepam 4 mg 08/23/19 07:21 Ativan IV Q1HR PRN CIWA-Ar 16-25 Lorazepam 4 mg 08/23/19 07:21 Ativan IV Q15MIN PRN CIWA-Ar >25 Metoprolol Tartrate 50 mg 08/23/19 12:00 08/25/19 12:56 Lopressor PO 50 mg Q6HR KWABENA Administration Morphine Sulfate 2 mg 08/23/19 12:00 08/25/19 02:21 Morphine IV 2 mg Q4H PRN Administration Pain, Moderate (4-6) Multivitamins 1 each 08/24/19 10:00 08/25/19 10:24 Theragran Tab PO 1 each QDAY KWABENA Administration Naproxen 500 mg 08/25/19 04:25 08/25/19 04:37 Naprosyn PO 500 mg Q12H PRN Administration Pain, Mild (1-3) Ondansetron HCl 4 mg 08/23/19 12:00 08/23/19 14:37 Zofran IV 4 mg Q8H PRN Administration Nausea And Vomiting Sodium Chloride 10 ml 08/23/19 12:00 08/25/19 10:24 Sodium Chloride Flush Syringe 10 Ml IV 10 ml BID KWABENA Administration Sodium Chloride 10 ml 08/23/19 12:00 Sodium Chloride Flush Syringe 10 Ml IV PRN PRN LINE FLUSH
[2019-08-26] MEDS ORDERED: LEXISCAN IV ONE ×2 (06:52→06:58)
[2019-08-26] MEDS: LOPRESSOR PO SCH (06:55)
[2019-08-26 10:37] VITALS: BP 116/81
[2019-08-26] MEDS: THERAGRAN Tab PO SCH (10:37)
[2019-08-26] MEDS: FOLVITE 1 MG in NACL 0.9% 50 ML IV SCH (10:38)
[2019-08-26] MEDS: SODIUM CHLORIDE FLUSH SYRINGE 10 ML IV SCH (10:38)
[2019-08-26] MEDS: NORVASC PO SCH (10:38)
[2019-08-26] MEDS: VITAMIN B-1 100 MG in NACL 0.9% 50 ML IV SCH (10:39)
--- NOTE | 2019-08-26 11:25 | Progress Note ---
Assessment and Plan S/p lexiscan MPI stress test this AM which was negative. Pt remains in NSR. Currently stable cardiac status. Pt may discharge home from cardiology standpoint on current cardiac regimen. Will not initiate systemic AC at this time as pt has CHADS score of 1 and has h/o chronic ETOH use. Suspect atrial fibrillation was precipitated by binge ETOH use. Cessation of ETOH use strongly encouraged. Recommend pt follow up in our office with Dr. Ortez within 1-2 weeks ([phone]). The patient has been seen in conjunction with Dr. Jon who agrees with the assessment and plan of care. - Patient Problems (1) SVT (supraventricular tachycardia) Current Visit: Yes Status: Resolved (2) Atrial fibrillation with RVR Current Visit: Yes Status: Resolved (3) Non sustained ventricular tachycardia Current Visit: Yes Status: Acute (4) Alcohol withdrawal Current Visit: Yes Status: Acute Qualifiers: Qualified Code(s): F10.239 - Alcohol dependence with withdrawal, unspecified (5) Hypokalemia Current Visit: Yes Status: Acute (6) Hypertension Current Visit: Yes Status: Chronic Qualifiers: Hypertension type: essential hypertension Qualified Code(s): I10 - Essential (primary) hypertension Subjective Date of service: 08/26/19 Principal diagnosis: SVT, AF, VT Interval history: pt for stress test, no current cardiac complaints, in SR on telemetry. Objective Last Vital Signs Temp 98.1 F 08/26/19 04:02 Pulse 74 08/26/19 10:38 Resp 17 08/26/19 10:00 BP 116/81 08/26/19 10:38 Pulse Ox 97 08/26/19 10:32 - Physical Examination General: No Apparent Distress HEENT: Positive: EOMI, Normocephaly, Mucus Membranes Moist Neck: Positive: neck supple, trachea midline Cardiac: Positive: Reg Rate and Rhythm, S1/S2 Lungs: Positive: Decreased Breath Sounds Neuro: Positive: Grossly Intact Abdomen: Positive: Soft, Active Bowel Sounds. Negative: Tender Skin: Positive: Clear. Negative: Rash Musculoskeletal: Normal Range of Motion Extremities: Present: normal. Absent: edema - Imaging and Cardiology EKG: image reviewed Echo: report reviewed (EF 50-55%, trace MR and TR, impaired relaxation) - Telemetry EKG Rhythm: Sinus Rhythm
--- NOTE | 2019-08-26 13:34 | Discharge Summary ---
Providers - Providers Date of Admission: 08/23/19 09:10 Date of discharge: 08/26/19 Attending physician: BROOKLYN DAMICO 08/23/19 09:06 Consult to Cardiology [CONS] Routine Consulting Provider: ELIGIO MADRID Reason For Exam: SVT, then A-fib with RVR 08/23/19 18:02 Consult to Physician [CONS] Urgent Comment: Consulting Provider: URIEL SPARKS Physician Instructions: Reason For Exam: critical care management Primary care physician: GLASS CHECKER Hospitalization Condition: Fair Disposition: DC-01 TO HOME OR SELFCARE Core Measure Documentation - Palliative Care Palliative Care/ Comfort Measures: Not Applicable Exam - Constitutional Vitals: Temp Pulse Resp BP Pulse Ox 98.1 F 74 17 116/81 97 08/26/19 04:02 08/26/19 10:38 08/26/19 10:00 08/26/19 10:38 08/26/19 10:32 Plan Activity: advance as tolerated Diet: low fat, low cholesterol, low salt Plan of Treatment: 1.Follow up with PCP or [facility] in 1 week 2.Follow up with Dr. Ortze in 1 week Follow up with: PRIMARY CARE, [Primary Care Provider] - 3-5 Days Prescriptions: Folic Acid [Folvite] 1 mg PO DAILY #30 tablet Metoprolol [Lopressor TAB] 50 mg PO BID #60 tablet Multivitamin Tab [Multiple Vitamin TAB (Theragran)] 1 each PO QDAY #30 tablet amLODIPine [Norvasc] 5 mg PO QDAY #30 tablet Thiamine [Vitamin B-1] 100 mg PO QDAY #30 tablet
[2019-08-27] MEDS ORDERED: FOLVITE PO SCH (10:00)
[2019-08-27] MEDS ORDERED: VITAMIN B-1 PO SCH (10:00)
--- NOTE | 2019-08-27 22:25 | Treadmill Report ---
NUCLEAR CARDIOLOGY PERFUSION STUDY REASON FOR STUDY: VT. READING PHYSICIAN: Dr. Tucker. IMAGING PROTOCOL: The patient received 10 mCi of Technetium 99m Tetrofosmin for resting image and 28 mCi of Technetium 99m Tetrofosmin for stress imaging. The imaging for the whole procedure was completed 30-90 minutes following the initial injection of Technetium 99m Tetrofosmin. The SPECT imaging in the 180 degree arc was performed in the right anterior oblique projection. Computerized reconstruction of the images was performed for analysis. IMAGING RESULTS: Normal cavity size from stress to rest. Normal distribution of radionuclide in the anterior, inferior, septal, and apical regions. Gated SPECT visualization is approximately 50% with no abnormality. The patient infused Lexiscan. The patient's baseline EKG is AFib. The patient had no EKG changes suggestive of ischemia. SUMMARY: 1. Negative Lexiscan EKG. 2. Normal rest and stress myocardial perfusion scan. No significant ischemia. Gated SPECT EF approximately 50%. Baseline rhythm is AFib. JOB# [id number] JERICHO/KELSEY MANCINI
== END 2019-08-26 14:07 | disposition home or self-care (01) | DRG 309 ==
LOC: ED 06:40 → 4A 09:10 → CC1 11:13 → 4A 08-24 12:16
PROVIDERS: ADMIT Internal Medicine; ATTEND Internal Medicine
PROC: 5A2204Z Restoration of Cardiac Rhythm, Single (ICD-10-PCS; principal; 2019-08-23)
DX: I47.1 Supraventricular tachycardia (principal); F10.239 Alcohol dependence with withdrawal, unspecified; E87.1 Hypo-osmolality and hyponatremia; E87.2 Acidosis; I48.91 Unspecified atrial fibrillation; E87.6 Hypokalemia; I10 Essential (primary) hypertension; F10.229 Alcohol dependence with intoxication, unspecified; Z79.899 Other long term (current) drug therapy; Z71.41 Alcohol abuse counseling and surveillance of alcoholic
CPT/HCPCS: 36415; 71045; 71275; 78452; 80048; 80053; 80307; 80320; 81001; 82962; 83735; 84100; 84443; 84484; 85014; 85018; 85025; 85049; 85379; 85610; 85730; 93005; 93010; 93017; 93306; 96361; 96374; 96375; G0378; A9502; G0480; J0153; J0282; J1644; J2060; J2270; J2405; J2785; J3411; J7030; J7060; Q9967

== ENCOUNTER 2019-12-07 11:32 | Inpatient (IN) | payer SELFPAY ==
[2019-12-07] MEDS ORDERED: ASPIRIN 81 MG TAB CHEW PO ONE (11:48)
[2019-12-07] MEDS ORDERED: ADENOSINE 6 MG/2 ML INJ ONE (11:53)
[2019-12-07] MEDS ORDERED: LORazepam 2 MG/ML VIAL ONE ×2 (12:03→21:08)
--- NOTE | 2019-12-07 12:21 | Emergency Department Report ---
ED Palpitations HPI - General Chief Complaint: Alcohol Stated Complaint: ALCOHOL WITHDRAWS Time Seen by Provider: 12/07/19 11:48 Source: patient Mode of arrival: Ambulatory Limitations: No Limitations - History of Present Illness Initial Comments: Patient is 54 years old male with history of chronic alcoholism with frequent alcohol binge. Patient presented to the ER complaining of palpitation. Patient found to have a heart rate of 228 in triage area. Patient immediately left the the main ED room 18, cardiac catheterization technologist applied and IV access obtained immediately. EKG showed SVT with a heart rate of 229. Patient is alert, oriented 3 with a blood pressure of 148/102 and oxygen saturation of 98% on room air. Patient immediately given 6 mg of adenosine with no response, at 12 mg of adenosine administer with no response. Patient then given Cardizem 20 mg IV and patient immediately converted to sinus resemble with a heart rate of 108. Patient started on Cardizem drip. Patient stated that he has been drinking for the last 7 days and he stopped last night cold turkey. Patient patient had similar episode like this last year for which she was admitted to the hospital. MD Complaint: rapid heart beat, "heart racing", palpitations Context: occured during rest Arrythmia History: SVT - Related Data Home Medications Medication Instructions Recorded Confirmed Last Taken Ascorbic Acid [Vitamin C] 250 mg PO QDAY 08/23/19 08/23/19 08/21/19 Calcium Carbonate/Vitamin D3 1 each PO DAILY 08/23/19 08/23/19 08/21/19 [Calcium 600-Vit D3 500 Softgel] [place] 450 mg PO DAILY 08/23/19 08/23/19 08/21/19 Magnesium Oxide 250 mg PO DAILY 08/23/19 08/23/19 08/21/19 [place]-3 Fatty Acids/Fish Oil [Cvs 1 each PO DAILY 08/23/19 08/23/19 08/21/19 Fish Oil 1,200 mg Softgel] Potassium Gluconate 99 mg PO QDAY 08/23/19 08/23/19 08/21/19 Vitamin B Complex/Folic Acid 1 tab PO DAILY 08/23/19 08/23/19 08/21/19 [B-Complex Tablet] Previous Rx's Medication Instructions Recorded Last Taken Type Folic Acid [Folvite] 1 mg PO DAILY #30 tablet 08/26/19 Unknown Rx Metoprolol [Lopressor TAB] 50 mg PO BID #60 tablet 08/26/19 Unknown Rx Multivitamin Tab [Multiple Vitamin 1 each PO QDAY #30 tablet 08/26/19 Unknown Rx TAB (Theragran)] Thiamine [Vitamin B-1] 100 mg PO QDAY #30 tablet 08/26/19 Unknown Rx amLODIPine 5 mg PO QDAY #30 tablet 08/26/19 Unknown Rx Allergies Allergy/AdvReac Type Severity Reaction Status Date / Time No Known Allergies Allergy Unverified 07/11/15 16:17 ED Review of Systems ROS: Stated complaint: ALCOHOL WITHDRAWS Other details as noted in HPI Comment: All other systems reviewed and negative Constitutional: denies: chills, fever Respiratory: denies: cough, shortness of breath, SOB with exertion, wheezing Cardiovascular: palpitations. denies: chest pain Gastrointestinal: denies: abdominal pain, nausea, vomiting, diarrhea, constipation, hematemesis, melena, hematochezia Musculoskeletal: denies: back pain Neurological: denies: headache, weakness, numbness, paresthesias, confusion, abnormal gait Psychiatric: anxiety ED Past Medical Hx - Past Medical History Previous Medical History?: Yes Hx Hypertension: Yes Hx Seizures: Yes (12 years ago) Hx Psychiatric Treatment: Yes (ETOH abuse) Additional medical history: Alcohol abuse - Surgical History Past Surgical History?: Yes Additional Surgical History: right knee surgery - Social History Smoking Status: Never Smoker - Medications Home Medications: Home Medications Medication Instructions Recorded Confirmed Last Taken Type Ascorbic Acid [Vitamin C] 250 mg PO QDAY 08/23/19 08/23/19 08/21/19 History Calcium Carbonate/Vitamin D3 1 each PO DAILY 08/23/19 08/23/19 08/21/19 History [Calcium 600-Vit D3 500 Softgel] [place] 450 mg PO DAILY 08/23/19 08/23/19 08/21/19 History Magnesium Oxide 250 mg PO DAILY 08/23/19 08/23/19 08/21/19 History [place]-3 Fatty Acids/Fish Oil [Cvs 1 each PO DAILY 08/23/19 08/23/19 08/21/19 History Fish Oil 1,200 mg Softgel] Potassium Gluconate 99 mg PO QDAY 08/23/19 08/23/19 08/21/19 History Vitamin B Complex/Folic Acid 1 tab PO DAILY 08/23/19 08/23/1919 History [B-Complex Tablet] Folic Acid [Folvite] 1 mg PO DAILY #30 tablet 08/26/19 Unknown Rx Metoprolol [Lopressor TAB] 50 mg PO BID #60 tablet 08/26/19 Unknown Rx Multivitamin Tab [Multiple Vitamin 1 each PO QDAY #30 tablet 08/26/19 Unknown Rx TAB (Theragran)] Thiamine [Vitamin B-1] 100 mg PO QDAY #30 tablet 08/26/19 Unknown Rx amLODIPine 5 mg PO QDAY #30 tablet 08/26/19 Unknown Rx ED Physical Exam - General Limitations: No Limitations General appearance: alert, in no apparent distress, anxious - Head Head exam: Present: atraumatic, normocephalic, normal inspection - Eye Eye exam: Present: normal appearance - ENT ENT exam: Present: normal exam, normal orophraynx, mucous membranes moist - Neck Neck exam: Present: normal inspection, full ROM. Absent: tenderness, meningismus, lymphadenopathy, thyromegaly - Respiratory Respiratory exam: Present: normal lung sounds bilaterally - Cardiovascular Cardiovascular Exam: Present: tachycardia - GI/Abdominal GI/Abdominal exam: Present: soft, normal bowel sounds. Absent: distended, tenderness, guarding, rebound, rigid, organomegaly, mass, bruit, pulsatile mass, hernia - Extremities Exam Extremities exam: Present: normal inspection, full ROM, normal capillary refill. Absent: tenderness, pedal edema, calf tenderness - Back Exam Back exam: Present: normal inspection, full ROM. Absent: CVA tenderness (R), CVA tenderness (L) - Neurological Exam Neurological exam: Present: alert, oriented X3, CN II-XII intact, reflexes normal - Psychiatric Psychiatric exam: Present: normal mood, anxious. Absent: agitated, homicidal ideation, suicidal ideation - Skin Skin exam: Present: warm, intact, normal color ED Course Vital Signs 12/07/19 12/07/19 12/07/19 11:39 11:44 12:00 Pulse Rate 240 H 225 H Respiratory 21 Rate Blood Pressure Blood Pressure [Right] O2 Sat by Pulse 98 96 Oximetry 12/07/19 12/07/19 12/07/19 12:30 12:33 12:41 Pulse Rate 124 H 230 H Respiratory 22 Rate Blood Pressure 136/108 137/101 Blood Pressure [Right] O2 Sat by Pulse 97 Oximetry 12/07/19 12/07/19 12/07/19 13:00 13:30 13:39 Pulse Rate 131 H 126 H 123 H Respiratory 21 20 Rate Blood Pressure 150/102 150/102 Blood Pressure [Right] O2 Sat by Pulse Oximetry 12/07/19 12/07/19 12/07/19 14:00 14:19 14:30 Pulse Rate 116 H 109 H 112 H Respiratory 18 17 Rate Blood Pressure 159/101 159/101 Blood Pressure [Right] O2 Sat by Pulse Oximetry 12/07/19 12/07/19 12/07/19 15:00 15:30 16:00 Pulse Rate 127 H 227 H 207 H Respiratory 21 20 42 H Rate Blood Pressure 159/101 147/108 147/108 Blood Pressure [Right] O2 Sat by Pulse Oximetry 12/07/19 12/07/19 16:30 17:00 Pulse Rate 211 H 117 H Respiratory 35 H 18 Rate Blood Pressure 122/93 136/103 Blood Pressure 122/81 [Right] O2 Sat by Pulse 97 Oximetry - Reevaluation(s) Reevaluation #1: 12/07/19 16:32 Patient did not respond to amiodarone drip. Patient given ketamine 50 mg IV and synchronized converted with 100 J. Patient now is sinus rhythm with a heart rate of 115 and stable vital signs. 12/07/19 17:45 - Consultations Consultation #1: 12/07/19 15:43 Patient was doing well with a heart rate of 110-120 and all of a sudden heart rate jumped to 225. EKG showed a wide complex tachycardia. Patient is alert oriented 3 with oxygen saturation of 100% on room air and a stable blood pressure. I discussed the patient was doctor on, he advised to give amiodarone 150 IV and start amiodarone drip and if there is no respond in any manus patient will need to be cardioverted. 12/07/19 17:45 ED Medical Decision Making - Lab Data Result diagrams: 12/07/19 12:33 12/07/19 12:33 - EKG Data -: EKG Interpreted by Me Rate: tachycardia - EKG Data 12/07/19 12:23 - Radiology Data Radiology results: report reviewed - Medical Decision Making Patient is 54 years old male with history of chronic alcoholism with frequent alcohol binge. Patient presented to the ER complaining of palpitation. Patient found to have a heart rate of 228 in triage area. Patient immediately left the the main ED room 18, cardiac catheterization technologist applied and IV access obtained i mmediately. EKG showed SVT with a heart rate of 229. Patient is alert, oriented 3 with a blood pressure of 148/102 and oxygen saturation of 98% on room air. Patient immediately given 6 mg of adenosine with no response, at 12 mg of adenosine administer with no response. Patient then given Cardizem 20 mg IV and patient immediately converted to sinus resemble with a heart rate of 108. Patient started on Cardizem drip. Patient stated that he has been drinking for the last 7 days and he stopped last night cold turkey. Patient patient had similar episode like this last year for which she was admitted to the hospital. Patient remained stable in the emergency room. Patient started on CIWA protocol with a score 20, patient received 2 mg of IV Ativan. Patient discussed with Dr. Roberson, he agreed to admit the patient to medical service for further management. Critical Care Time: Yes Critical care time in (mins) excluding proc time.: 45 Critical care attestation.: If time is entered above; I have spent that time in minutes in the direct care of this critically ill patient, excluding procedure time. ED Disposition Clinical Impression: SVT (supraventricular tachycardia), Delirium tremens, Ventricular tachycardia Disposition: 09 OP ADMIT IP TO THIS HOSP Is pt being admited?: Yes Condition: Stable
[2019-12-07] MEDS ORDERED: dilTIAZem 25 MG/5 ML INJ IV ONE (12:26)
[2019-12-07] MEDS ORDERED: LORazepam 2 MG/ML VIAL IV PRN (12:26)
[2019-12-07] MEDS ORDERED: THIAMINE 100 MG, FOLIC ACID 1 MG, MULTIPLE VITAMIN INJ, ADULT 10 ML in SODIUM CHLORIDE ... IV ONE (12:27)
[2019-12-07] MEDS: LORazepam 2 MG/ML VIAL IV PRN ×3 (12:32→23:42)
--- NOTE | 2019-12-07 12:33 | XRay Report ---
CHEST 1 VIEW 12/07/2019 12:07 PM INDICATION / CLINICAL INFORMATION: Chest Pain. COMPARISON: Chest x-ray 08/23/2019 FINDINGS: SUPPORT DEVICES: None. HEART / MEDIASTINUM: No significant abnormality. LUNGS / PLEURA: No significant pulmonary or pleural abnormality. No pneumothorax. ADDITIONAL FINDINGS: No significant additional findings. IMPRESSION: 1. No acute findings. Signer Name: Dl Grover MD Signed: 12/07/2019 12:29 PM Workstation Name: [id number]
[2019-12-07] MEDS ORDERED: ONDANSETRON 4 MG/2 ML INJ IV ONE (12:53)
[2019-12-07 12:54] LABS: Hematocrit 47.9 % (35.5-45.6); Hemoglobin 16.2 gm/dl (11.8-15.2); Mean Corpuscular HGB Conc 34 % (32-34); Mean Corpuscular Volume 90 fl (84-94); Platelet Count 156 K/mm3 (140-440); Red Cell Distribution Width 14.5 % (13.2-15.2)
[2019-12-07] MEDS ORDERED: dilTIAZem/D5W 100 MG/100 ML BAG IV SCH (13:00)
[2019-12-07 13:04] LABS: INR 0.98 (0.87-1.13)
[2019-12-07 13:05] LABS: Partial Thromboplastin Time 23.5 Sec. (24.2-36.6)
[2019-12-07] MEDS ORDERED: ADENOSINE 6 MG/2 ML INJ IV ONE ×2 (13:09→13:10)
[2019-12-07 13:20] LABS: Alanine Aminotransferase 48 units/L (7-56); Albumin 5.1 g/dL (3.9-5); BUN/Creatinine Ratio 18; Bilirubin,Direct 0.2 mg/dL (0-0.2); Blood Urea Nitrogen 16 mg/dL (9-20); Calcium 9.4 mg/dL (8.4-10.2); Hemolysis Index 12
[2019-12-07 13:30] LABS: Eosinophils % (Manual) 0 % (0.0-4.3); Total Cells Counted 100
[2019-12-07 13:31] LABS: Anisocytosis 1+; Large Platelets Few; Platelet Estimate Consistent w Auto
[2019-12-07] MEDS ORDERED: MAGNESIUM OXIDE 250 MG PO SCH (14:21)
--- NOTE | 2019-12-07 14:26 | History and Physical Report ---
History of Present Illness Chief complaint: I have been drinking and after I stop I just do not feel good History of present illness: 54-year-old male with HTN, alcohol withdrawal seizures, alcohol dependence, SVT, medication noncompliance presents to ED for evaluation. Patient states that he has undergone a 7-day binge drinking episode and subsequently stopped drinking last night. Patient states that since that time he has "felt like my heart was racing". Patient also reports tremors, nausea, and decreased ability to concentrate. Patient acknowledges medication noncompliance. Patient transported to [facility] via private vehicle. Patient seen and evaluated in the emergency department. Patient lab and imaging studies reviewed. Patient found to be intoxicated. Patient also found to have heart rate of 229 with EKG and telemetry monitoring showing supraventricular tachycardia. Patient was treated with adenosine without cardioversion, as well as IV Cardizem drip. Cardiology team consulted in ED. Patient subsequently underwent cardioversion with normalization of heart rate. Patient admitted to telemetry for medical stabilization due to high risk of cardiopulmonary decompensation and alcohol withdrawal. Patient initiated on alcohol withdrawal protocol as well. Patient denies fever, chills, chest pain, bright red blood per rectum, hemoptysis, trauma, productive cough, recent ill contacts. Prior admission on 08/23/2019 reviewed. All medication listed at time of admission have been reconciled. Past History Past Medical History: hypertension, other (See HPI) Past Surgical History: Other (Right knee surgery) Social history: single, smoking Family history: diabetes, hypertension Medications and Allergies Allergies Allergy/AdvReac Type Severity Reaction Status Date / Time No Known Allergies Allergy Unverified 07/11/15 16:17 Home Medications Medication Instructions Recorded Confirmed Last Taken Type Ascorbic Acid [Vitamin C] 250 mg PO QDAY 08/23/19 12/07/19 08/21/19 History Calcium Carbonate/Vitamin D3 1 each PO DAILY 08/23/19 12/07/19 08/21/19 History [Calcium 600-Vit D3 500 Softgel] Cayenne 450 mg PO DAILY 08/23/19 12/07/19 08/21/19 History Magnesium Oxide 250 mg PO DAILY 08/23/19 12/07/19 08/21/19 History [place]-3 Fatty Acids/Fish Oil [Cvs 1 each PO DAILY 08/23/19 12/07/19 08/21/19 History Fish Oil 1,200 mg Softgel] Potassium Gluconate 99 mg PO QDAY 08/23/19 12/07/19 08/21/19 History Vitamin B Complex/Folic Acid 1 tab PO DAILY 08/23/19 12/07/19 08/21/19 History [B-Complex Tablet] Folic Acid [Folvite] 1 mg PO DAILY #30 tablet 08/26/19 12/07/19 Unknown Rx Multivitamin Tab [Multiple Vitamin 1 each PO QDAY #30 tablet 08/26/19 12/07/19 Unknown Rx TAB (Theragran)] Thiamine [Vitamin B-1] 100 mg PO QDAY #30 tablet 08/26/19 12/07/19 Unknown Rx Active Meds: Active Medications Amlodipine Besylate (Amlodipine) 5 mg PO QDAY KWABENA Ascorbic Acid (Vitamin C) 250 mg PO QDAY KWABENA Folic Acid (Folvite) 1 mg PO DAILY KWABENA Diltiazem HCl (Cardizem/D5w 100mg/100ml) 100 mg in 100 mls @ 5 mls/hr IV TITR KWABENA; Protocol Last Admin: 12/07/19 13:39 Dose: 5 mg/hr, 5 mls/hr Documented by: Thiamine HCl 100 mg/ Folic Acid 1 mg/ Multivitamins/Minerals 10 ml/ Sodium Chloride 1,011.2 mls @ 250 mls/hr IV ONCE ONE Stop: 12/07/19 16:29 Last Admin: 12/07/19 13:38 Dose: 250 mls/hr Documented by: Lorazepam (Ativan) 2 mg IV Q1H PRN PRN Reason: CIWA-Ar 8-15 Lorazepam (Ativan) 4 mg IV Q1H PRN PRN Reason: CIWA-Ar 16-25 Last Admin: 12/07/19 12:32 Dose: 4 mg Documented by: Lorazepam (Ativan) 4 mg IV Q15MIN PRN PRN Reason: CIWA-Ar >25 Metoprolol Tartrate (Metoprolol) 50 mg PO BID [facility] Miscellaneous Medication (Potassium Gluconate [Potassium Gluconate]) 99 mg PO QDAY [facility] Miscellaneous Medication (Vitamin B Complex/Folic Acid [B-Complex Tablet]) 1 tab PO DAILY [facility] Miscellaneous Medication ([place]-3 Fatty Acids/Fish Oil [Cvs Fish Oil 1,200 Mg Softgel]) 1 each PO DAILY [facility] Miscellaneous Medication (Magnesium Oxide [Magnesium Oxide]) 250 mg PO DAILY [facility] Miscellaneous Medication (Calcium Carbonate/Vitamin D3 [Calcium 600-Vit D3 500 Softgel]) 1 each PO DAILY [facility] Multivitamins (Theragran Tab) 1 each PO QDAY [facility] Thiamine HCl (Vitamin B-1) 100 mg PO QDAY [facility] Review of Systems Constitutional: other (Tremors), no weight loss, no weight gain, no fever, no chills, no sweats Ears, nose, mouth and throat: no tinnitis, no decreased hearing, no nose pain, no nasal congestion, no nasal discharge Cardiovascular: palpitations, rapid/irregular heart beat, no chest pain, no orthopnea, no syncope, no lightheadedness, no dyspnea on exertion, no claudication, no high blood pressure, no leg edema Respiratory: no cough, no cough with sputum, no excessive sputum, no hemoptysis Gastrointestinal: nausea, no abdominal pain, no diarrhea, no change in bowel habits, no hematemesis, no coffee ground emesis Genitourinary Male: no hematuria, no discharge, no urinary frequency Rectal: no pain, no incontinence, no bleeding Musculoskeletal: no neck stiffness, no shooting arm pain, no arm numbness/ti ngling Integumentary: no rash, no pruritis, no sores Neurological: no transient paralysis, no paralysis, no parathesias, no tingling Psychiatric: no anxiety, no memory loss, no change in sleep habits, no sleep disturbances, no insomnia, no hypersomnia, no change in appetite Endocrine: no cold intolerance, no heat intolerance, no excessive thirst, no nocturia, no flushing Hematologic/Lymphatic: no easy bruising, no easy bleeding, no lymphadenopathy Allergic/Immunologic: no urticaria, no allergic rhinitis, no persistent infections, no anaphylaxis Exam - Constitutional Vitals: Temp Pulse Resp BP Pulse Ox 109 H 18 159/101 97 12/07/19 14:19 12/07/19 14:00 12/07/19 14:00 12/07/19 12:41 General appearance: Present: mild distress, disheveled, malodorous - EENT Eyes: Present: PERRL, miosis ENT: hearing intact, clear oral mucosa - Neck Neck: Present: supple, normal ROM - Respiratory Respiratory effort: normal Respiratory: bilateral: CTA - Cardiovascular Rhythm: regularly irregular Heart Sounds: Present: S1 & S2. Absent: rub, click - Extremities Extremities: pulses symmetrical, No edema Peripheral Pulses: within normal limits - Abdominal General gastrointestinal: Present: soft, non-tender, non-distended, normal bowel sounds Male genitourinary: Present: normal - Integumentary Integumentary: Present: clear, warm, dry - Musculoskeletal Musculoskeletal: strength equal bilaterally, generalized weakness - Psychiatric Psychiatric: appropriate mood/affect, intact judgment & insight - Neurologic Neurologic: CNII-XII intact, moves all extremities, no gait normal Results - Labs CBC & Chem 7: 12/07/19 12:33 12/07/19 12:33 Labs: Abnormal lab results 12/07/19 12/07/19 12/07/19 Range/Units 12:33 12:33 12:33 WBC 17.8 H (4.5-11.0) K/mm3 RBC 5.30 H (3.65-5.03) M/mm3 Hgb 16.2 H (11.8-15.2) gm/dl Hct 47.9 H (35.5-45.6) % Seg Neuts % (Manual) 95.0 H (40.0-70.0) % Lymphocytes % (Manual) 3.0 L (13.4-35.0) % Nucleated RBC % 1.0 H (0.0-0.9) % Seg Neutrophils # Man 16.9 H (1.8-7.7) K/mm3 Lymphocytes # (Manual) 0.5 L (1.2-5.4) K/mm3 Basophils # (Manual) 0.2 H (0.0-0.1) K/mm3 APTT 23.5 L (24.2-36.6) Sec. Potassium 3.5 L (3.6-5.0) mmol/L Chloride 89.4 L (98-107) mmol/L Carbon Dioxide 14 L (22-30) mmol/L Glucose 111 H (75-100) mg/dL AST 76 H (5-40) units/L Total Protein 9.3 H (6.3-8.2) g/dL Albumin 5.1 H (3.9-5) g/dL Plasma/Serum Alcohol (0-0.07) % 12/07/19 Range/Units 12:33 WBC (4.5-11.0) K/mm3 RBC (3.65-5.03) M/mm3 Hgb (11.8-15.2) gm/dl Hct (35.5-45.6) % Seg Neuts % (Manual) (40.0-70.0) % Lymphocytes % (Manual) (13.4-35.0) % Nucleated RBC % (0.0-0.9) % Seg Neutrophils # Man (1.8-7.7) K/mm3 Lymphocytes # (Manual) (1.2-5.4) K/mm3 Basophils # (Manual) (0.0-0.1) K/mm3 APTT (24.2-36.6) Sec. Potassium (3.6-5.0) mmol/L Chloride (98-107) mmol/L Carbon Dioxide (22-30) mmol/L Glucose (75-100) mg/dL AST (5-40) units/L Total Protein (6.3-8.2) g/dL Albumin (3.9-5) g/dL Plasma/Serum Alcohol 0.18 H (0-0.07) % Assessment and Plan - Patient Problems (1) SVT (supraventricular tachycardia) Current Visit: Yes Status: Acute Plan to address problem: Admit to telemetry, cardiology consulted in ED, patient treated with adenosine and IV Cardizem with persistent SVT, patient underwent synchronized cardioversion in ED with normalization of heart rate. Patient initiated on amiodarone as per cardiology recommendation. (2) Systemic inflammatory response syndrome Current Visit: Yes Status: Acute Plan to address problem: Empiric IV antibiotic therapy, CBC, CMP, urinalysis, chest x-ray, supportive care. (3) Alcohol intoxication delirium Current Visit: Yes Status: Acute Plan to address problem: CIWA protocol, thiamine, folic acid, multivitamin, supportive care. Neurochecks, aspiration precaution, seizure precautions, fall precautions. (4) Acidosis Current Visit: Yes Status: Acute Plan to address problem: IV fluid resuscitation therapy, supportive care, repeat BMP in a.m. (5) DVT prophylaxis Current Visit: Yes Status: Acute Plan to address problem: SCD to bilateral lower extremities while in bed, prophylactic heparin.
[2019-12-07] MEDS ORDERED: FOLIC ACID 1 MG TAB PO SCH (15:00)
[2019-12-07] MEDS ORDERED: ACETAMINOPHEN 325 MG TAB PO PRN (15:30)
[2019-12-07] MEDS ORDERED: AMIODARONE 150 MG in DEXTROSE 5% IN WATER 100 ML IV ONE (15:36)
[2019-12-07] MEDS: MULTIVITAMINS ,THERAPEUTIC TAB PO SCH (15:45)
[2019-12-07] MEDS ORDERED: AMIODARONE 900 MG in DEXTROSE 5% IN WATER 482 ML IV SCH (16:00)
[2019-12-07] MEDS: METOPROLOL TARTRATE 50 MG TAB PO SCH ×2 (16:17→23:40)
[2019-12-07] MEDS ORDERED: KETAMINE 500 MG/5 ML VIAL MDV ONE (16:34)
[2019-12-07] MEDS ORDERED: ONDANSETRON 4 MG/2 ML INJ ONE ×3 (17:06→21:07)
[2019-12-07] MEDS: ONDANSETRON 4 MG/2 ML INJ IV PRN ×3 (17:09→21:11)
[2019-12-07] MEDS: dilTIAZem 30 MG TAB PO SCH ×3 (19:00→23:40)
[2019-12-07] MEDS: cefTRIAXone/NS 1 GM/50 ML 1 GM/50 ML BAG IV SCH (19:00)
[2019-12-07] MEDS ORDERED: dilTIAZem 30 MG TAB ONE ×2 (19:03→20:55)
[2019-12-07] MEDS ORDERED: KETAMINE 500 MG/5 ML VIAL MDV IV ONE (19:17)
[2019-12-07] MEDS ORDERED: KETAMINE 200 MG/20 ML INJ MDV IV ONE (20:00)
[2019-12-07] MEDS: HEPARIN 5,000 UNIT/1 ML VIAL SUB-Q SCH (23:41)
[2019-12-08 04:58] LABS: Bilirubin,Urine NEG (Negative); Blood,Urine MOD (Negative); Color,Urine Yellow (Yellow); Mucus,Urine FEW /HPF; Protein,Urine 300 mg/dL mg/dL (Negative); Urobilinogen,Urine < 2.0 mg/dL (<2.0); WBC,Urine < 1.0 /HPF (0.0-6.0)
[2019-12-08 05:06] LABS: Amphetamine Screen,Urine PRESUMPTIVE NEGATIVE; Benzodiazepines Screen,Urine PRESUMPTIVE NEGATIVE; Cannabinoid Screen,Urine PRESUMPTIVE NEGATIVE; Cocaine Screen,Urine PRESUMPTIVE NEGATIVE; Methadone Screen,Urine PRESUMPTIVE NEGATIVE; Opiate Screen,Urine PRESUMPTIVE NEGATIVE
[2019-12-08] MEDS: dilTIAZem 30 MG TAB PO SCH ×3 (06:45→18:01)
[2019-12-08 09:00] LABS: BUN/Creatinine Ratio 15; Blood Urea Nitrogen 15 mg/dL (9-20); Calcium 9.8 mg/dL (8.4-10.2); Hemolysis Index 4
[2019-12-08] MEDS ORDERED: [UNRECOGNIZED DRUG - OTHER] PO SCH (10:00)
[2019-12-08] MEDS ORDERED: FISH OIL PO SCH (10:00)
[2019-12-08] MEDS ORDERED: OMEGA PO SCH (10:00)
[2019-12-08] MEDS ORDERED: VITAMIN D3 PO SCH (10:00)
[2019-12-08] MEDS ORDERED: FATTY ACIDS PO SCH (10:00)
[2019-12-08] MEDS ORDERED: CALCIUM CARBONATE PO SCH (10:00)
[2019-12-08] MEDS ORDERED: [UNRECOGNIZED DRUG - OTHER] PO SCH (10:00)
[2019-12-08] MEDS ORDERED: VITAMIN B COMPLEX PO SCH (10:00)
[2019-12-08] MEDS ORDERED: POTASSIUM GLUCONATE 99 MG PO SCH (10:00)
[2019-12-08] MEDS ORDERED: FOLIC ACID PO SCH (10:00)
[2019-12-08] MEDS: HEPARIN 5,000 UNIT/1 ML VIAL SUB-Q SCH ×2 (10:00→21:13)
[2019-12-08] MEDS: MULTIVITAMINS ,THERAPEUTIC TAB PO SCH (10:17)
[2019-12-08] MEDS: METOPROLOL TARTRATE 50 MG TAB PO SCH ×2 (10:17→21:14)
[2019-12-08] MEDS: OMEGA-3 FATTY ACIDS/FISH OIL 1 GRAM CAP PO SCH (10:17)
[2019-12-08] MEDS: CALCIUM CARBONATE/VITAMIN D3 500 MG-200 UNIT TAB PO SCH (10:17)
[2019-12-08] MEDS: MAGNESIUM OXIDE 400 MG TAB PO SCH (10:18)
[2019-12-08] MEDS: THIAMINE 100 MG TAB PO SCH (10:18)
[2019-12-08] MEDS: FOLIC ACID 1 MG TAB PO SCH (10:18)
[2019-12-08] MEDS: B COMPLEX W/VITAMIN C TAB PO SCH (10:19)
[2019-12-08] MEDS: amLODIPine 5 MG TAB PO SCH (10:21)
--- NOTE | 2019-12-08 11:25 | Progress Note ---
Assessment and Plan Assessment and plan: SVT. Patient currently with amiodarone drip. Await cardiology recommendations. EtOH abuse/withdrawal. Continue CIWA protocol. Leukocytosis. May be leukemoid stress reaction. No obvious signs of infection. Recheck CBC. History Interval history: Patient without complaints. Currently with amiodarone drip. Hospitalist Physical - Constitutional Vitals: Temp Pulse Resp BP Pulse Ox 97.2 F L 78 18 144/99 95 12/08/19 07:33 12/08/19 07:33 12/08/19 07:33 12/08/19 07:33 12/08/19 09:16 General appearance: Present: no acute distress - EENT Eyes: Present: PERRL, EOM intact ENT: hearing intact, clear oral mucosa, dentition normal - Neck Neck: Present: supple, normal ROM - Respiratory Respiratory effort: normal Respiratory: bilateral: CTA - Cardiovascular Rhythm: regular Heart Sounds: Present: S1 & S2. Absent: gallop, rub - Extremities Extremities: no ischemia, No edema, Full ROM - Abdominal General gastrointestinal: soft, non-tender, non-distended, normal bowel sounds - Integumentary Integumentary: Present: clear, warm, dry - Neurologic Neurologic: CNII-XII intact, moves all extremities Results - Labs CBC & Chem 7: 12/07/19 12:33 12/08/19 06:30 Labs: Laboratory Last Values WBC 17.8 K/mm3 (4.5-11.0) H 12/07/19 12:33 RBC 5.30 M/mm3 (3.65-5.03) H 12/07/19 12:33 Hgb 16.2 gm/dl (11.8-15.2) H 12/07/19 12:33 Hct 47.9 % (35.5-45.6) H 12/07/19 12:33 MCV 90 fl (84-94) 12/07/19 12:33 MCH 31 pg (28-32) 12/07/19 12:33 MCHC 34 % (32-34) 12/07/19 12:33 RDW 14.5 % (13.2-15.2) 12/07/19 12:33 Plt Count 156 K/mm3 (140-440) 12/07/19 12:33 Add Manual Diff Complete 12/07/19 12:33 Total Counted 100 12/07/19 12:33 Seg Neutrophils % Ecg Technician 12/07/19 12:33 Seg Neuts % (Manual) 95.0 % (40.0-70.0) H 12/07/19 12:33 Band Neutrophils % 0 % 12/07/19 12:33 Lymphocytes % (Manual) 3.0 % (13.4-35.0) L 12/07/19 12:33 Reactive Lymphs % (Man) 0 % 12/07/19 12:33 Monocytes % (Manual) 1.0 % (0.0-7.3) 12/07/19 12:33 Eosinophils % (Manual) 0 % (0.0-4.3) 12/07/19 12:33 Basophils % (Manual) 1.0 % (0.0-1.8) 12/07/19 12:33 Metamyelocytes % 0 % 12/07/19 12:33 Myelocytes % 0 % 12/07/19 12: Promyelocytes % 0 % 12/07/19 12: Blast Cells % 0 % 12/07/19 12: Nucleated RBC % 1.0 % (0.0-0.9) H 12/07/19 12:33 Seg Neutrophils # Man 16.9 K/mm3 (1.8-7.7) H 12/07/19 12:33 Band Neutrophils # 0.0 K/mm3 12/07/19 12:33 Lymphocytes # (Manual) 0.5 K/mm3 (1.2-5.4) L 12/07/19 12:33 Abs React Lymphs (Man) 0.0 K/mm3 12/07/19 12:33 Monocytes # (Manual) 0.2 K/mm3 (0.0-0.8) 12/07/19 12:33 Eosinophils # (Manual) 0.0 K/mm3 (0.0-0.4) 12/07/19 12:33 Basophils # (Manual) 0.2 K/mm3 (0.0-0.1) H 12/07/19 12:33 Metamyelocytes # 0.0 K/mm3 12/07/19 12:33 Myelocytes # 0.0 K/mm3 12/07/19 12:33 Promyelocytes # 0.0 K/mm3 12/07/19 12:33 Blast Cells # 0.0 K/mm3 12/07/19 12:33 WBC Morphology Not Reportable 12/07/19 12:33 Hypersegmented Neuts Not Reportable 12/07/19 12:33 Hyposegmented Neuts Not Reportable 12/07/19 12:33 Hypogranular Neuts Not Reportable 12/07/19 12:33 Smudge Cells Not Reportable 12/07/19 12:33 Toxic Granulation Not Reportable 12/07/19 12:33 Toxic Vacuolation Not Reportable 12/07/19 12:33 Dohle Bodies Not Reportable 12/07/19 12:33 Pelger-Huet Anomaly Not Reportable 12/07/19 12:33 Mau Rods Not Reportable 12/07/19 12:33 Platelet Estimate Consistent w auto 12/07/19 12:33 Clumped Platelets Not Reportable 12/07/19 12:33 Plt Clumps, EDTA Not Reportable 12/07/19 12:33 Large Platelets Few 12/07/19 12:33 Giant Platelets Not Reportable 12/07/19 12:33 Platelet Satelliting Not Reportable 12/07/19 12:33 Plt Morphology Comment Not Reportable 12/07/19 12:33 RBC Morphology Not Reportable 12/07/19 12:33 Dimorphic RBCs Not Reportable 12/07/19 12:33 Polychromasia Not Reportable 12/07/19 12:33 Hypochromasia Not Reportable 12/07/19 12:33 Poikilocytosis Not Reportable 12/07/19 12:33 Anisocytosis 1+ 12/07/19 12:33 Microcytosis Not Reportable 12/07/19 12:33 Macrocytosis Not Reportable 12/07/19 12:33 Spherocytes Not Reportable 12/07/19 12:33 Pappenheimer Bodies Not Reportable 12/07/19 12:33 Sickle Cells Not Reportable 12/07/19 12:33 Target Cells Not Reportable 12/07/19 12:33 Tear Drop Cells Not Reportable 12/07/19 12:33 Ovalocytes Not Reportable 12/07/19 12:33 Helmet Cells Not Reportable 12/07/19 12:33 Vogel-[place] Bodies Not Reportable 12/07/19 12:33 Mikado Rings Not Reportable 12/07/19 12:33 Hamzah Cells Not Reportable 12/07/19 12:33 Bite Cells Not Reportable 12/07/19 12:33 Crenated Cell Not Reportable 12/07/19 12:33 Elliptocytes Not Reportable 12/07/19 12:33 Acanthocytes (Spur) Not Reportable 12/07/19 12:33 Rouleaux Not Reportable 12/07/19 12:33 Hemoglobin C Crystals Not Reportable 12/07/19 12:33 Schistocytes Not Reportable 12/07/19 12:33 Malaria parasites Not Reportable 12/07/19 12:33 Geronimo Bodies Not Reportable 12/07/19 12:33 Hem Pathologist Commnt No 12/07/19 12:33 PT 13.1 Sec. (12.2-14.9) 12/07/19 12:33 INR 0.98 (0.87-1.13) 12/07/19 12:33 APTT 23.5 Sec. (24.2-36.6) L 12/07/19 12:33 Sodium 137 mmol/L (137-145) 12/08/19 06:30 Potassium 3.5 mmol/L (3.6-5.0) L 12/08/19 06:30 Chloride 92.1 mmol/L (98-107) L 12/08/19 06:30 Carbon Dioxide 17 mmol/L (22-30) L 12/08/19 06:30 Anion Gap 31 mmol/L 12/08/19 06:30 BUN 15 mg/dL (9-20) 12/08/19 06:30 Creatinine 1.0 mg/dL (0.8-1.5) 12/08/19 06:30 Estimated GFR > 60 ml/min 12/08/19 06:30 BUN/Creatinine Ratio 15 % 12/08/19 06:30 Glucose 101 mg/dL (75-100) H 12/08/19 06:30 Calcium 9.8 mg/dL (8.4-10.2) 12/08/19 06:30 Magnesium 2.30 mg/dL (1.7-2.3) 12/07/19 12:33 Total Bilirubin 0.60 mg/dL (0.1-1.2) 12/07/19 12:33 Direct Bilirubin 0.2 mg/dL (0-0.2) 12/07/19 12:33 Indirect Bilirubin 0.4 mg/dL 12/07/19 12:33 AST 76 units/L (5-40) H 12/07/19 12:33 ALT 48 units/L (7-56) 12/07/19 12:33 Alkaline Phosphatase 58 units/L (35-129) 12/07/19 12:33 Troponin T < 0.010 ng/mL (0.00-0.029) 12/07/19 19:32 Total Protein 9.3 g/dL (6.3-8.2) H 12/07/19 12:33 Albumin 5.1 g/dL (3.9-5) H 12/07/19 12:33 Albumin/Globulin Ratio 1.2 % 12/07/19 12:33 Urine Color Yellow (Yellow) 12/07/19 Unknown Urine Turbidity Slightly-cloudy (Clear) 12/07/19 Unknown Urine pH 5.0 (5.0-7.0) 12/07/19 Unknown Ur Specific [place] 1.019 (1.003-1.030) 12/07/19 Unknown Urine Protein 300 mg/dl mg/dL (Negative) 12/07/19 Unknown Urine Glucose (UA) Neg mg/dL (Negative) 12/07/19 Unknown Urine Ketones 80 mg/dL (Negative) 12/07/19 Unknown Urine Blood Mod (Negative) 12/07/19 Unknown Urine Nitrite Neg (Negative) 12/07/19 Unknown Urine Bilirubin Neg (Negative) 12/07/19 Unknown Urine Urobilinogen < 2.0 mg/dL (<2.0) 12/07/19 Unknown Ur Leukocyte Esterase Neg (Negative) 12/07/19 Unknown Urine WBC (Auto) < 1.0 /HPF (0.0-6.0) 12/07/19 Unknown Urine RBC (Auto) 4.0 /HPF (0.0-6.0) 12/07/19 Unknown Urine Mucus Few /HPF 12/07/19 Unknown Urine Opiates Screen Presumptive negative 12/07/19 Unknown Urine Methadone Screen Presumptive negative 12/07/19 Unknown Ur Barbiturates Screen Presumptive negative 12/07/19 Unknown Ur Phencyclidine Scrn Presumptive negative 12/07/19 Unknown Ur Amphetamines Screen Presumptive negative 12/07/19 Unknown U Benzodiazepines Scrn Presumptive negative 12/07/19 Unknown Urine Cocaine Screen Presumptive negative 12/07/19 Unknown U Marijuana (THC) Screen Presumptive negative 12/07/19 Unknown Drugs of Abuse Note Disclamer 12/07/19 Unknown Plasma/Serum Alcohol 0.15 % (0-0.07) H 12/07/19 14:32 Active Medications - Current Medications Current Medications: Generic Name Dose Route Start Last Admin Trade Name Freq PRN Reason Stop Dose Admin Acetaminophen 650 mg 12/07/19 15:30 Tylenol PO Q4H PRN Pain MILD(1-3)/Fever >100.5/LOPEZ Amlodipine Besylate 5 mg 12/08/19 10:00 12/08/19 10:21 Amlodipine PO Not Given QDAY KWABENA Ascorbic Acid 250 mg 12/08/19 10:00 Vitamin C PO QDAY KWABENA Calcium/Vitamin D 1 each 12/08/19 10:00 12/08/19 10:17 Oysco D 500 Mg-200 Unit PO 1 each QDAY KWABENA Administration Diltiazem HCl 30 mg 12/07/19 15:32 12/08/19 06:45 Cardizem PO 30 mg Q6HR KWABENA Administration Fish Oil 1,000 mg 12/08/19 10:00 12/08/19 10:17 Fish Oil PO 1,000 mg QDAY KWABENA Administration Folic Acid 1 mg 12/08/19 10:00 12/08/19 10:18 Folvite PO 1 mg DAILY KWABENA Administration Heparin Sodium (Porcine) 5,000 unit 12/07/19 22:00 12/07/19 23:41 Heparin SUB-Q 5,000 unit Q12HR KWABENA Administration Ceftriaxone Sodium 1 gm in 50 mls @ 100 mls/hr 12/07/19 15:34 12/07/19 19:00 Rocephin/Ns 1 Gm/50 Ml IV 100 mls/hr Q24H KWABENA Administration Protocol Amiodarone HCl 900 mg/ 500 mls @ 33.333 mls/hr 12/07/19 16:00 12/07/19 16:15 Dextrose IV 1 mg/min DIRECT KWABENA 33.333 mls/hr Administration Protocol 1 MG/MIN Lorazepam 2 mg 12/07/19 12:26 12/07/19 21:10 Ativan IV 2 mg Q1H PRN Administration JANELLE-Jet 8-15 Lorazepam 4 mg 12/07/19 12:26 12/07/19 23:42 Ativan IV 4 mg Q1H PRN Administration CIWA-Ar 16-25 Lorazepam 4 mg 12/07/19 12:26 Ativan IV Q15MIN PRN CIWA-Ar >25 Magnesium Oxide 200 mg 12/08/19 10:00 12/08/19 10:18 Mag-Ox PO 200 mg QDAY KWABENA Administration Metoprolol Tartrate 50 mg 12/07/19 15:00 12/08/19 10:17 Metoprolol PO Not Given BID KWABENA Multivitamins 1 each 12/07/19 15:00 12/08/19 10:17 Theragran Tab PO 1 each QDAY KWABENA Administration Ondansetron HCl 4 mg 12/07/19 15:30 12/07/19 21:11 Zofran IV 4 mg Q8H PRN Administration Nausea And Vomiting Sodium Chloride 10 ml 12/07/19 22:00 12/07/19 23:41 Sodium Chloride Flush Syringe 10 Ml IV 10 ml BID KWABENA Administration Sodium Chloride 10 ml 12/07/19 15:30 Sodium Chloride Flush Syringe 10 Ml IV PRN PRN LINE FLUSH Thiamine HCl 100 mg 12/08/19 10:00 12/08/19 10:18 Vitamin B-1 PO 100 mg QDAY KWABENA Administration Vitamin B Complex/Vitamin C 1 each 12/08/19 10:00 12/08/19 10:19 Allbee With C PO 1 each QDAY KWABENA Administration
--- NOTE | 2019-12-08 11:34 | Consultation ---
REFERRING PHYSICIAN: Dr. Roberson. REASON FOR CONSULTATION: Advice regarding SVT. HISTORY OF PRESENT ILLNESS: The patient is a pleasant 54-year-old gentleman with a history of alcoholism, alcohol withdrawal seizures, hypertension, SVT, presents to the Emergency Room after a 7-day bandage with palpitations, found to have SVT, was treated with IV Cardizem, reverted to sinus rhythm, developed further SVT, was actually shocked and started on IV amiodarone. He is in sinus rhythm now, is seen on telemetry. Denies any chest pain, shortness of breath, syncope or presyncope. States he feels a lot better. He states that he is thinking about quitting alcohol. He does smoke. Smoking cessation discussed for 5 minutes. Alcohol cessation discussed for at least 10 minutes. Physical exam is unremarkable. Telemetry reveals no further dysrhythmias. Echocardiogram performed in August revealed preserved LV function without evidence of significant valvulopathy or pericardial effusion. Furthermore, he had a stress test, which was negative for ischemia with baseline normal ejection fraction. On telemetry of note seen 2 episodes of SVT. I do not see any evidence of atrial fibrillation, which has been an issue for him in the past. PAST MEDICAL HISTORY: The second episode revealed what appeared to be SVT with aberrancy. PHYSICAL EXAMINATION: VITAL SIGNS: Blood pressure is 135/90. He is afebrile. Tele reveals sinus rhythm in the 70s and 80s, O2 sat is 97% on room air. HEENT: Sclerae icteric, pale. NECK: Supple. No mass or JVD. CHEST: Clear to auscultation bilaterally. Good air movement. CARDIOVASCULAR: Regular rhythm, S1, S2. ABDOMEN: Soft, nontender, nondistended. Normoactive bowel sounds in 4 quadrants. No mass or bruits. EXTREMITIES: No cyanosis, clubbing or edema. Good peripheral pulses. SKIN: Intact. No rashes. DATA: EKG as aforementioned. Chest x-ray with no acute bony or interstitial findings. LABORATORY DATA: WBC 17.8, hemoglobin 16.2, hematocrit 47.9, platelets 156. Potassium is 3.5. Creatinine is normal. Magnesium, bilirubin, ALT normal, AST mildly elevated at 76. Troponin negative x 2. UDS is negative. Alcohol level upon admission was 0.15. ASSESSMENT AND PLAN: In summary, the patient is a pleasant 54-year-old gentleman. 1. Supraventricular tachycardia x 2 now in sinus rhythm, due to recurrent alcohol binge. At this point, we will discontinue amiodarone. Continue p.o. Cardizem. No need for further cardiac workup at this time. Optimize electrolytes. Continue low dose beta lakshmi as well. DT precautions. We will follow along. JOB# [id number] SBM/NTS
[2019-12-08] MEDS: LORazepam 2 MG/ML VIAL IV PRN ×2 (11:44→21:52)
[2019-12-08] MEDS: ASCORBIC ACID 250 MG TAB PO SCH (15:31)
[2019-12-08] MEDS: cefTRIAXone/NS 1 GM/50 ML 1 GM/50 ML BAG IV SCH (18:01)
[2019-12-08] MEDS: ONDANSETRON 4 MG/2 ML INJ IV PRN (20:35)
[2019-12-09] MEDS: dilTIAZem 30 MG TAB PO SCH ×2 (00:32→05:17)
[2019-12-09 08:12] LABS: Basophils # (Auto) 0.1 K/mm3 (0.0-0.1); Basophils % (Auto) 0.5 % (0.0-1.8); Eosinophils % (Auto) 0.2 % (0.0-4.3); Hematocrit 41.4 % (35.5-45.6); Hemoglobin 14.2 gm/dl (11.8-15.2); Lymphocytes # (Auto) 2.3 K/mm3 (1.2-5.4); Mean Corpuscular HGB Conc 34 % (32-34); Mean Corpuscular Volume 90 fl (84-94); Monocytes # (Auto) 0.5 K/mm3 (0.0-0.8); Monocytes % (Auto) 3.5 % (0.0-7.3); Red Blood Count 4.62 M/mm3 (3.65-5.03); Red Cell Distribution Width 14.3 % (13.2-15.2)
[2019-12-09 08:13] LABS: Platelet Count 93 K/mm3 (140-440)
[2019-12-09 08:32] LABS: BUN/Creatinine Ratio 18; Blood Urea Nitrogen 14 mg/dL (9-20); Hemolysis Index 8
[2019-12-09] MEDS: MULTIVITAMINS ,THERAPEUTIC TAB PO SCH (09:44)
[2019-12-09] MEDS: amLODIPine 5 MG TAB PO SCH (09:44)
[2019-12-09] MEDS: MAGNESIUM OXIDE 400 MG TAB PO SCH (09:44)
[2019-12-09] MEDS: B COMPLEX W/VITAMIN C TAB PO SCH (09:44)
[2019-12-09] MEDS: FOLIC ACID 1 MG TAB PO SCH (09:44)
[2019-12-09] MEDS: METOPROLOL TARTRATE 50 MG TAB PO SCH (09:45)
[2019-12-09] MEDS: THIAMINE 100 MG TAB PO SCH (09:45)
[2019-12-09] MEDS: CALCIUM CARBONATE/VITAMIN D3 500 MG-200 UNIT TAB PO SCH (09:45)
[2019-12-09] MEDS: OMEGA-3 FATTY ACIDS/FISH OIL 1 GRAM CAP PO SCH (09:45)
[2019-12-09] MEDS: HEPARIN 5,000 UNIT/1 ML VIAL SUB-Q SCH (09:45)
--- NOTE | 2019-12-09 10:19 | Progress Note ---
Assessment and Plan Paroxysmal SVT Lexiscan MPI stress test done 08/2019 was negative. Echo done 08/2019 showed EF 50-55%, trace MR and TR, impaired relaxation. Tele reviewed with no arrhythmias noted overnight. Suspect precipitated by ETOH abuse. Cessation of ETOH strongly encouraged. Convert short acting cardizem to cardizem CD 120mg daily. H/o transient atrial fibrillation Suspect precipitated by ETOH abuse. Cessation of ETOH strongly encouraged. Convert short acting cardizem to cardizem CD 120mg daily. 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 ETOH abuse / ETOH withdrawal Per primary. HTN Stable. Convert short acting cardizem to cardizem CD 120mg daily. Hypokalemia Replete electrolytes PRN. Currently stable cardiac status. Nothing further to add from cardiac perspective at this time. Will sign off. Recommend pt follow up in our office with Dr. April Padron within 1-2 weeks of discharge ([phone]). The patient has been seen in conjunction with Dr. Blackman who agrees with the assessment and plan of care. Subjective Date of service: 12/09/19 Principal diagnosis: SVT; ETOH abuse Interval history: pt resting in bed, no current complaints. states he is feeling better today. tele reviewed- in ST HR 115 with no arrhythmias noted overnight. Objective Last Vital Signs Temp 98.0 F 12/09/19 08:13 Pulse 111 H 12/09/19 09:45 Resp 20 12/09/19 08:13 BP 131/90 12/09/19 09:45 Pulse Ox 99 12/09/19 08:13 - Physical Examination General: No Apparent Distress HEENT: Positive: PERRL, Normocephaly, Mucus Membranes Moist Neck: Positive: neck supple, trachea midline Cardiac: Positive: Reg Rate and Rhythm, S1/S2 Lungs: Positive: Decreased Breath Sounds - Labs and Meds CBC 12/09/19 Range/Units 06:45 WBC 13.5 H (4.5-11.0) K/mm3 RBC 4.62 (3.65-5.03) M/mm3 Hgb 14.2 (11.8-15.2) gm/dl Hct 41.4 D (35.5-45.6) % Plt Count 93 L (140-440) K/mm3 Lymph # 2.3 (1.2-5.4) K/mm3 [place] # 0.5 (0.0-0.8) K/mm3 Eos # 0.0 (0.0-0.4) K/mm3 Baso # 0.1 (0.0-0.1) K/mm3 Comprehensive Metabolic Panel 12/09/19 Range/Units 06:45 Sodium 134 L (137-145) mmol/L Potassium 2.9 L* (3.6-5.0) mmol/L Chloride 91.4 L (98-107) mmol/L Carbon Dioxide 22 (22-30) mmol/L BUN 14 (9-20) mg/dL Creatinine 0.8 (0.8-1.5) mg/dL Glucose 113 H (75-100) mg/dL Calcium 10.0 (8.4-10.2) mg/dL
--- NOTE | 2019-12-09 10:36 | Progress Note ---
Assessment and Plan Assessment and plan: Paroxysmal SVT. Telemetry reviewed with no arrhythmias noted overnight. Suspect precipitated by ETOH abuse. Cessation of ETOH strongly encouraged. Cardiology changed short acting Cardizem to Cardizem CD 120 mg daily. Atrial fibrillation. Per cardiology. Hypertension. Continue current medications. Hypokalemia. Replete potassium. EtOH abuse/withdrawal. Continue CIWA protocol. Leukocytosis. May be leukemoid stress reaction. No obvious signs of infection. Recheck CBC. History Interval history: Patient without complaints. Hospitalist Physical - Constitutional Vitals: Temp Pulse Resp BP Pulse Ox 98.0 F 111 H 20 131/90 99 12/09/19 08:13 12/09/19 09:45 12/09/19 08:13 12/09/19 09:45 12/09/19 08:13 General appearance: Present: no acute distress - EENT Eyes: Present: PERRL, EOM intact ENT: hearing intact, clear oral mucosa, dentition normal - Neck Neck: Present: supple, normal ROM - Respiratory Respiratory effort: normal Respiratory: bilateral: CTA - Cardiovascular Rhythm: regular Heart Sounds: Present: S1 & S2. Absent: gallop, rub - Extremities Extremities: no ischemia, No edema, Full ROM - Abdominal General gastrointestinal: soft, non-tender, non-distended, normal bowel sounds - Integumentary Integumentary: Present: clear, warm, dry - Neurologic Neurologic: CNII-XII intact, moves all extremities Results - Labs CBC & Chem 7: 12/09/19 06:45 12/09/19 06:45 Labs: Laboratory Last Values WBC 13.5 K/mm3 (4.5-11.0) H 12/09/19 06:45 RBC 4.62 M/mm3 (3.65-5.03) 12/09/19 06:45 Hgb 14.2 gm/dl (11.8-15.2) 12/09/19 06:45 Hct 41.4 % (35.5-45.6) D 12/09/19 06:45 MCV 90 fl (84-94) 12/09/19 06:45 MCH 31 pg (28-32) 12/09/19 06:45 MCHC 34 % (32-34) 12/09/19 06:45 RDW 14.3 % (13.2-15.2) 12/09/19 06:45 Plt Count 93 K/mm3 (140-440) L 12/09/19 06:45 Lymph % (Auto) 17.0 % (13.4-35.0) 12/09/19 06:45 [place] % (Auto) 3.5 % (0.0-7.3) 12/09/19 06:45 Eos % (Auto) 0.2 % (0.0-4.3) 12/09/19 06:45 Baso % (Auto) 0.5 % (0.0-1.8) 12/09/19 06:45 Lymph # 2.3 K/mm3 (1.2-5.4) 12/09/19 06:45 [place] # 0.5 K/mm3 (0.0-0.8) 12/09/19 06:45 Eos # 0.0 K/mm3 (0.0-0.4) 12/09/19 06:45 Baso # 0.1 K/mm3 (0.0-0.1) 12/09/19 06:45 Add Manual Diff Complete 12/07/19 12:33 Total Counted 100 12/07/19 12:33 Seg Neutrophils % 78.8 % (40.0-70.0) H 12/09/19 06:45 Seg Neuts % (Manual) 95.0 % (40.0-70.0) H 12/07/19 12:33 Band Neutrophils % 0 % 12/07/19 12:33 Lymphocytes % (Manual) 3.0 % (13.4-35.0) L 12/07/19 12:33 Reactive Lymphs % (Man) 0 % 12/07/19 12:33 Monocytes % (Manual) 1.0 % (0.0-7.3) 12/07/19 12:33 Eosinophils % (Manual) 0 % (0.0-4.3) 12/07/19 12:33 Basophils % (Manual) 1.0 % (0.0-1.8) 12/07/19 12:33 Metamyelocytes % 0 % 12/07/19 12:33 Myelocytes % 0 % 12/07/19 12:33 Promyelocytes % 0 % 12/07/19 12:33 Blast Cells % 0 % 12/07/19 12:33 Nucleated RBC % 1.0 % (0.0-0.9) H 12/07/19 12:33 Seg Neutrophils # 10.7 K/mm3 (1.8-7.7) H 12/09/19 06:45 Seg Neutrophils # Man 16.9 K/mm3 (1.8-7.7) H 12/07/19 12:33 Band Neutrophils # 0.0 K/mm3 12/07/19 12:33 Lymphocytes # (Manual) 0.5 K/mm3 (1.2-5.4) L 12/07/19 12:33 Abs React Lymphs (Man) 0.0 K/mm3 12/07/19 12:33 Monocytes # (Manual) 0.2 K/mm3 (0.0-0.8) 12/07/19 12:33 Eosinophils # (Manual) 0.0 K/mm3 (0.0-0.4) 12/07/19 12:33 Basophils # (Manual) 0.2 K/mm3 (0.0-0.1) H 12/07/19 12:33 Metamyelocytes # 0.0 K/mm3 12/07/19 12:33 Myelocytes # 0.0 K/mm3 12/07/19 12:33 Promyelocytes # 0.0 K/mm3 12/07/19 12:33 Blast Cells # 0.0 K/mm3 12/07/19 12:33 WBC Morphology Not Reportable 12/07/19 12:33 Hypersegmented Neuts Not Reportable 12/07/19 12:33 Hyposegmented Neuts Not Reportable 12/07/19 12:33 Hypogranular Neuts Not Reportable 12/07/19 12:33 Smudge Cells Not Reportable 12/07/19 12:33 Toxic Granulation Not Reportable 12/07/19 12:33 Toxic Vacuolation Not Reportable 12/07/19 12:33 Dohle Bodies Not Reportable 12/07/19 12:33 Pelger-Huet Anomaly Not Reportable 12/07/19 12:33 Mau Rods Not Reportable 12/07/19 12:33 Platelet Estimate Consistent w auto 12/07/19 12:33 Clumped Platelets Not Reportable 12/07/19 12:33 Plt Clumps, EDTA Not Reportable 12/07/19 12:33 Large Platelets Few 12/07/19 12:33 Giant Platelets Not Reportable 12/07/19 12:33 Platelet Satelliting Not Reportable 12/07/19 12:33 Plt Morphology Comment Not Reportable 12/07/19 12:33 RBC Morphology Not Reportable 12/07/19 12:33 Dimorphic RBCs Not Reportable 12/07/19 12:33 Polychromasia Not Reportable 12/07/19 12:33 Hypochromasia Not Reportable 12/07/19 12:33 Poikilocytosis Not Reportable 12/07/19 12:33 Anisocytosis 1+ 12/07/19 12:33 Microcytosis Not Reportable 12/07/19 12:33 Macrocytosis Not Reportable 12/07/19 12:33 Spherocytes Not Reportable 12/07/19 12:33 Pappenheimer Bodies Not Reportable 12/07/19 12:33 Sickle Cells Not Reportable 12/07/19 12:33 Target Cells Not Reportable 12/07/19 12:33 Tear Drop Cells Not Reportable 12/07/19 12:33 Ovalocytes Not Reportable 12/07/19 12:33 Helmet Cells Not Reportable 12/07/19 12:33 Vogel-Cardwell Bodies Not Reportable 12/07/19 12:33 [place] Rings Not Reportable 12/07/19 12:33 [place] Cells Not Reportable 12/07/19 12:33 Bite Cells Not Reportable 12/07/19 12:33 Crenated Cell Not Reportable 12/07/19 12:33 Elliptocytes Not Reportable 12/07/19 12:33 Acanthocytes (Spur) Not Reportable 12/07/19 12:33 Rouleaux Not Reportable 12/07/19 12:33 Hemoglobin C Crystals Not Reportable 12/07/19 12:33 Schistocytes Not Reportable 12/07/19 12:33 Malaria parasites Not Reportable 12/07/19 12:33 [place] Bodies Not Reportable 12/07/19 12:33 Hem Pathologist Commnt No 12/07/19 12:33 PT 13.1 Sec. (12.2-14.9) 12/07/19 12:33 INR 0.98 (0.87-1.13) 12/07/19 12:33 APTT 23.5 Sec. (24.2-36.6) L 12/07/19 12:33 Sodium 134 mmol/L (137-145) L 12/09/19 06:45 Potassium 2.9 mmol/L (3.6-5.0) L* 12/09/19 06:45 Chloride 91.4 mmol/L (98-107) L 12/09/19 06:45 Carbon Dioxide 22 mmol/L (22-30) 12/09/19 06:45 Anion Gap 24 mmol/L 12/09/19 06:45 BUN 14 mg/dL (9-20) 12/09/19 06:45 Creatinine 0.8 mg/dL (0.8-1.5) 12/09/19 06:45 Estimated GFR > 60 ml/min 12/09/19 06:45 BUN/Creatinine Ratio 18 % 12/09/19 06:45 Glucose 113 mg/dL (75-100) H 12/09/19 06:45 Calcium 10.0 mg/dL (8.4-10.2) 12/09/19 06:45 Magnesium 2.30 mg/dL (1.7-2.3) 12/07/19 12:33 Total Bilirubin 0.60 mg/dL (0.1-1.2) 12/07/19 12:33 Direct Bilirubin 0.2 mg/dL (0-0.2) 12/07/19 12:33 Indirect Bilirubin 0.4 mg/dL 12/07/19 12:33 AST 76 units/L (5-40) H 12/07/19 12:33 ALT 48 units/L (7-56) 12/07/19 12:33 Alkaline Phosphatase 58 units/L (35-129) 12/07/19 12:33 Troponin T < 0.010 ng/mL (0.00-0.029) 12/07/19 19:32 Total Protein 9.3 g/dL (6.3-8.2) H 12/07/19 12:33 Albumin 5.1 g/dL (3.9-5) H 12/07/19 12:33 Albumin/Globulin Ratio 1.2 % 12/07/19 12:33 Urine Color Yellow (Yellow) 12/07/19 Unknown Urine Turbidity Slightly-cloudy (Clear) 12/07/19 Unknown Urine pH 5.0 (5.0-7.0) 12/07/19 Unknown Ur Specific [place] 1.019 (1.003-1.030) 12/07/19 Unknown Urine Protein 300 mg/dl mg/dL (Negative) 12/07/19 Unknown Urine Glucose (UA) Neg mg/dL (Negative) 12/07/19 Unknown Urine Ketones 80 mg/dL (Negative) 12/07/19 Unknown Urine Blood Mod (Negative) 12/07/19 Unknown Urine Nitrite Neg (Negative) 12/07/19 Unknown Urine Bilirubin Neg (Negative) 12/07/19 Unknown Urine Urobilinogen < 2.0 mg/dL (<2.0) 12/07/19 Unknown Ur Leukocyte Esterase Neg (Negative) 12/07/19 Unknown Urine WBC (Auto) < 1.0 /HPF (0.0-6.0) 12/07/19 Unknown Urine RBC (Auto) 4.0 /HPF (0.0-6.0) 12/07/19 Unknown Urine Mucus Few /HPF 12/07/19 Unknown Urine Opiates Screen Presumptive negative 12/07/19 Unknown Urine Methadone Screen Presumptive negative 12/07/19 Unknown Ur Barbiturates Screen Presumptive negative 12/07/19 Unknown Ur Phencyclidine Scrn Presumptive negative 12/07/19 Unknown Ur Amphetamines Screen Presumptive negative 12/07/19 Unknown U Benzodiazepines Scrn Presumptive negative 12/07/19 Unknown Urine Cocaine Screen Presumptive negative 12/07/19 Unknown U Marijuana (THC) Screen Presumptive negative 12/07/19 Unknown Drugs of Abuse Note Disclamer 12/07/19 Unknown Plasma/Serum Alcohol 0.15 % (0-0.07) H 12/07/19 14:32 Active Medications - Current Medications Current Medications: Generic Name Dose Route Start Last Admin Trade Name Freq PRN Reason Stop Dose Admin Acetaminophen 650 mg 12/07/19 15:30 Tylenol PO Q4H PRN Pain MILD(1-3)/Fever >100.5/LOPEZ Ascorbic Acid 250 mg 12/08/19 10:00 12/08/19 15:31 Vitamin C PO 250 mg QDAY [facility] Administration Calcium/Vitamin D 1 each 12/08/19 10:00 12/09/19 09:45 Oysco D 500 Mg-200 Unit PO 1 each QDAY KWABENA Administration Diltiazem HCl 120 mg 12/09/19 12:00 Cardizem Cd PO QDAY KWABENA Fish Oil 1,000 mg 12/08/19 10:00 12/09/19 09:45 Fish Oil PO 1,000 mg QDAY KWABENA Administration Folic Acid 1 mg 12/08/19 10:00 12/09/19 09:44 Folvite PO 1 mg DAILY KWABENA Administration Heparin Sodium (Porcine) 5,000 unit 12/07/19 22:00 12/09/19 09:45 Heparin SUB-Q 5,000 unit Q12HR KWABENA Administration Ceftriaxone Sodium 1 gm in 50 mls @ 100 mls/hr 12/07/19 15:34 12/08/19 18:01 Rocephin/Ns 1 Gm/50 Ml IV 100 mls/hr Q24H KWABENA Administration Protocol Lorazepam 2 mg 12/07/19 12:26 12/08/19 21:52 Ativan IV 2 mg Q1H PRN Administration CIWA-Ar 8-15 Lorazepam 4 mg 12/07/19 12:26 12/07/19 23:42 Ativan IV 4 mg Q1H PRN Administration CIWA-Ar 16-25 Lorazepam 4 mg 12/07/19 12:26 Ativan IV Q15MIN PRN CIWA-Ar >25 Magnesium Oxide 200 mg 12/08/19 10:00 12/09/19 09:44 Mag-Ox PO 200 mg QDAY KWABENA Administration Multivitamins 1 each 12/07/19 15:00 12/09/19 09:44 Theragran Tab PO 1 each QDAY KWABENA Administration Ondansetron HCl 4 mg 12/07/19 15:30 12/08/19 20:35 Zofran IV 4 mg Q8H PRN Administration Nausea And Vomiting Potassium Chloride 40 meq 12/09/19 10:27 K-Dur PO 12/09/19 10:28 ONCE ONE Potassium Chloride 40 meq 12/09/19 16:00 K-Dur PO 12/09/19 16:01 ONCE ONE Sodium Chloride 10 ml 12/07/19 22:00 12/09/19 09:46 Sodium Chloride Flush Syringe 10 Ml IV 10 ml BID KWABENA Administration Sodium Chloride 10 ml 12/07/19 15:30 Sodium Chloride Flush Syringe 10 Ml IV PRN PRN LINE FLUSH Thiamine HCl 100 mg 12/08/19 10:00 12/09/19 09:45 Vitamin B-1 PO 100 mg QDAY KWABENA Administration Vitamin B Complex/Vitamin C 1 each 12/08/19 10:00 12/09/19 09:44 Riteshbedulce maria With C PO 1 each QDAY KWABENA Administration
[2019-12-09] MEDS: ASCORBIC ACID 250 MG TAB PO SCH (10:41)
[2019-12-09] MEDS: LORazepam 2 MG/ML VIAL IV PRN (10:42)
--- NOTE | 2019-12-09 10:46 | Discharge Summary ---
Providers - Providers Date of Admission: 12/07/19 15:10 Date of discharge: 12/09/19 Attending physician: CHRISTIANA PAYNE 12/07/19 15:42 Consult to Physician [CONS] Stat Comment: Consulting Provider: RAHEEL ZULUAGA Physician Instructions: Reason For Exam: wide-complex tachycardia 12/09/19 07:52 Consult to Physician [CONS] Routine Comment: Consulting Provider: RAHEEL ZULUAGA Physician Instructions: Reason For Exam: wide-complex tachycardia [facility] Reason for admission: SVT Condition: Stable Hospital course: 54-year-old male with HTN, alcohol withdrawal seizures, alcohol dependence, SVT, medication noncompliance presents to ED for evaluation. Patient stated that he underwent a 7-day binge drinking episode [employer]CH[employer]IC[employer] and developed palpitations Patient acknowledged medication noncompliance. Patient was found to be intoxicated. Patient also found to have heart rate of 229 with EKG and telemetry monitoring showing supraventricular tachycardia. Patient was treated with adenosine without cardioversion, as well as IV Cardizem drip. Cardiology team consulted in ED. Patient subsequently underwent cardioversion with normalization of heart rate. Patient admitted to telemetry for medical stabilization due to high risk of cardiopulmonary decompensation and alcohol withdrawal. Patient was placed on CIWA protocol. Cardiology converted short acting Cardizem to Cardizem CD 120 mg daily. Cardiology also felt that patient with CHADS score of 1 and also poor candidate for group home systemic AC in setting of ETOH abuse. Patient is felt to have received maximal hospital benefit and will be discharged home. Dedicated discharge time 32 minutes Disposition: [id number] TO HOME OR SELFCARE Time spent for discharge: 32 - Discharge Diagnoses (1) Alcohol withdrawal Status: Acute (2) SVT (supraventricular tachycardia) Status: Acute (3) Alcohol withdrawal Status: Acute Qualifiers: Qualified Code(s): F10.239 - Alcohol dependence with withdrawal, unspecified (4) Hypokalemia Status: Acute (5) Hypertension Status: Chronic Qualifiers: Hypertension type: essential hypertension Qualified Code(s): I10 - Essential (primary) hypertension Core Measure Documentation - Palliative Care Palliative Care/ Comfort Measures: Not Applicable - Core Measures Any of the following diagnoses?: none Exam - Constitutional Vitals: Temp Pulse Resp BP Pulse Ox 98.0 F 111 H 20 131/90 99 12/09/19 08:13 12/09/19 09:45 12/09/19 08:13 12/09/19 09:45 12/09/19 08:13 General appearance: Present: no acute distress, well-nourished - EENT Eyes: Present: PERRL ENT: hearing intact, clear oral mucosa - Neck Neck: Present: supple, normal ROM - Respiratory Respiratory effort: normal Respiratory: bilateral: CTA - Cardiovascular Heart Sounds: Present: S1 & S2. Absent: rub, click - Extremities Extremities: pulses symmetrical, No edema Peripheral Pulses: within normal limits - Abdominal General gastrointestinal: Present: soft, non-tender, non-distended, normal bowel sounds Male genitourinary: Present: normal - Integumentary Integumentary: Present: clear, warm, dry - Musculoskeletal Musculoskeletal: gait normal, strength equal bilaterally - Psychiatric Psychiatric: appropriate mood/affect, intact judgment & insight - Neurologic Neurologic: CNII-XII intact, moves all extremities Plan Activity: advance as tolerated Weight Bearing Status: Weight Bear as Tolerated Diet: low fat, low cholesterol, low salt Follow up with: NARAYAN GILMANNAZARETH MD KRISTIAN [Primary Care Provider] - 3-5 Days RAHEEL ZULUAGA MD [Staff Physician] - 7 Days Prescriptions: dilTIAZem CD [Cardizem CD] 120 mg PO QDAY #30 capsule Folic Acid [Folvite] 1 mg PO DAILY #30 tablet Multivitamin Tab [Multiple Vitamin TAB (Theragran)] 1 each PO QDAY #30 tablet Thiamine [Vitamin B-1] 100 mg PO QDAY #30 tablet
[2019-12-09] MEDS: POTASSIUM CHLORIDE ER 20 MEQ TAB PO SCH ×3 (11:17→17:40)
[2019-12-09] MEDS: dilTIAZem CD 120 MG CAP PO SCH ×2 (14:15→14:17)
[2019-12-09] MEDS ORDERED: POTASSIUM CHLORIDE ER 20 MEQ TAB PO SCH (16:00)
[2019-12-09 18:14] VITALS: BP 118/84
== END 2019-12-09 18:20 | disposition home or self-care (01) | DRG 309 ==
LOC: ED 11:32 → IMCU 15:10 → 3A 16:21 → 4A 16:58
PROVIDERS: ADMIT Internal Medicine; ATTEND Hospitalist
DX: I47.1 Supraventricular tachycardia (principal); R65.10 Systemic inflammatory response syndrome (SIRS) of non-infectious origin without acute organ dysfunction; E87.2 Acidosis; F10.231 Alcohol dependence with withdrawal delirium; I47.2 Ventricular tachycardia; I10 Essential (primary) hypertension; E87.6 Hypokalemia; Y90.9 Presence of alcohol in blood, level not specified; Z91.19 Patient's noncompliance with other medical treatment and regimen; Z79.899 Other long term (current) drug therapy; Z83.3 Family history of diabetes mellitus; Z82.49 Family history of ischemic heart disease and other diseases of the circulatory system
CPT/HCPCS: 36415; 71045; 80048; 80076; 80307; 80320; 81001; 83735; 84132; 84484; 85007; 85025; 85610; 85730; 93005; 93010; G0378; G0480; J0153; J0282; J0696; J1644; J2060; J2405; J3411; J7030; J7060

== ENCOUNTER 2021-11-04 08:15 | Emergency (ER) | payer OTHER ==
[2021-11-04] MEDS ORDERED: LORazepam 2 MG/ML VIAL IV PRN ×2 (08:46)
[2021-11-04] MEDS ORDERED: PANTOPRAZOLE 40 MG INJ IV ONE (08:46)
[2021-11-04] MEDS ORDERED: diazePAM 10 MG/2 ML SYRINGE IV ONE (08:46)
[2021-11-04] MEDS ORDERED: LACTATED RINGERS 1,000 ML IV ONE (08:46)
[2021-11-04] MEDS ORDERED: METOCLOPRAMIDE 10 MG/2 ML INJ IV ONE (08:46)
--- NOTE | 2021-11-04 08:48 | Emergency Department Report ---
ED General Adult HPI - General Chief complaint: Alcohol Stated complaint: i had a relapse Time Seen by Provider: 11/04/21 08:40 Source: patient, RN notes reviewed, old records reviewed Mode of arrival: Ambulatory Limitations: No Limitations - History of Present Illness Initial comments: The patient is a 56-year-old gentleman. His past medical history includes hypertension, alcohol withdrawal seizures, alcohol dependence, medication noncompliance, and SVT. Patient admitted to this hospital in the past for alcohol withdrawal. He had a CTA chest at that time which was negative for pulmonary embolism, and a cardiac stress test, which was unremarkable for acute findings. The patient presents to the ER today with a complaint of alcohol withdrawal. He recently indulged in a 4-day binge. He denies physical pain. He denies homicidality and suicidality. He reports anxiety, and nausea without vomiting. He felt completely improved in the emergency room with fluids and Valium. -: Gradual, days(s) Consistency: now resolved Improves with: medication Worsens with: none Associated Symptoms: denies other symptoms - Related Data Previous Rx's Medication Instructions Recorded Last Taken Type B Complex W/Vitamin C [Allbee with 1 each PO QDAY #30 tablet 11/04/21 Unknown Rx C] Calc Carb/Vit D 500 mg-200 Uni 1 each PO QDAY #30 tablet 11/04/21 Unknown Rx [Oysco D 500 mg-200 Unit] Folic Acid [Folvite] 1 mg PO DAILY #30 tablet 11/04/21 Unknown Rx Magnesium Oxide [Mag-Ox] 200 mg PO QDAY #30 tablet 11/04/21 Unknown Rx Multivitamin Tab [Multiple Vitamin 1 each PO QDAY #30 tablet 11/04/21 Unknown Rx TAB (Theragran)] [place]-3 Fatty Acids/Fish Oil [Fish 1,000 mg PO QDAY #30 capsule 11/04/21 Unknown Rx Oil] Thiamine [Vitamin B-1] 100 mg PO QDAY #30 tablet 11/04/21 Unknown Rx chlordiazePOXIDE [Librium] 25 mg PO Q6H PRN #25 capsule 11/04/21 Unknown Rx dilTIAZem CD [Cardizem CD] 120 mg PO QDAY #30 capsule 11/04/21 Unknown Rx Allergies Allergy/AdvReac Type Severity Reaction Status Date / Time No Known Allergies Allergy Verified 11/04/21 08:23 ED Review of Systems ROS: Stated complaint: Chest Pain Other details as noted in HPI Constitutional: other (Denies loss of taste and smell). denies: fever Eyes: denies: eye discharge ENT: denies: epistaxis Respiratory: denies: cough Cardiovascular: denies: chest pain Gastrointestinal: nausea. denies: abdominal pain, vomiting, diarrhea, hematemesis, melena, hematochezia Neurological: weakness Psychiatric: anxiety. denies: homicidal thoughts, suicidal thoughts ED Past Medical Hx - Past Medical History Hx Hypertension: Yes Hx Seizures: Yes (12 years ago) Hx Psychiatric Treatment: Yes (ETOH abuse) Additional medical history: Alcohol abuse - Surgical History Additional Surgical History: right knee surgery - Social History Smoking Status: Never Smoker - Medications Home Medications: Home Medications Medication Instructions Recorded Confirmed Last Taken Type B Complex W/Vitamin C [Allbee with 1 each PO QDAY #30 tablet 11/04/21 Unknown Rx C] Calc Carb/Vit D 500 mg-200 Uni 1 each PO QDAY #30 tablet 11/04/21 Unknown Rx [Oysco D 500 mg-200 Unit] Folic Acid [Folvite] 1 mg PO DAILY #30 tablet 11/04/21 Unknown Rx Magnesium Oxide [Mag-Ox] 200 mg PO QDAY #30 tablet 11/04/21 Unknown Rx Multivitamin Tab [Multiple Vitamin 1 each PO QDAY #30 tablet 11/04/21 Unknown Rx TAB (Theragran)] [place]-3 Fatty Acids/Fish Oil [Fish 1,000 mg PO QDAY #30 capsule 11/04/21 Unknown Rx Oil] Thiamine [Vitamin B-1] 100 mg PO QDAY #30 tablet 11/04/21 Unknown Rx chlordiazePOXIDE [Librium] 25 mg PO Q6H PRN #25 capsule 11/04/21 Unknown Rx dilTIAZem CD [Cardizem CD] 120 mg PO QDAY #30 capsule 11/04/21 Unknown Rx ED Physical Exam - General Limitations: No Limitations General appearance: alert, anxious, in distress - Head Head exam: Present: atraumatic, normocephalic - Eye Eye exam: Present: normal appearance, EOMI. Absent: nystagmus - ENT ENT exam: Present: normal exam, normal orophraynx, mucous membranes moist, normal external ear exam, other (Tongue fasciculations noted) - Neck Neck exam: Present: normal inspection, full ROM. Absent: tenderness, meni ngismus - Respiratory Respiratory exam: Present: normal lung sounds bilaterally. Absent: respiratory distress, wheezes, rales, rhonchi, stridor, decreased breath sounds - Cardiovascular Cardiovascular Exam: Present: normal rhythm, tachycardia, normal heart sounds. Absent: bradycardia, irregular rhythm, systolic murmur, diastolic murmur, rubs, gallop - GI/Abdominal GI/Abdominal exam: Present: soft, normal bowel sounds. Absent: distended, tenderness, guarding, rebound, rigid, pulsatile mass - Rectal Rectal exam: Present: deferred - Extremities Exam Extremities exam: Present: normal inspection, full ROM, other (2+ pulses noted in the bilateral upper and lower extremities. There is no palpable cord. negative Homans sign. Muscular compartments are soft. The pelvis is stable.). Absent: pedal edema, calf tenderness - Back Exam Back exam: Present: normal inspection, full ROM. Absent: tenderness, CVA tenderness (R), CVA tenderness (L), paraspinal tenderness, vertebral tenderness - Neurological Exam Neurological exam: Present: alert, oriented X3, other (No facial droop. Tongue midline. Extraocular movements intact bilaterally. Facial sensation intact to light touch in V1, V2, V3 distribution bilaterally. 5 and a 5 strength in 4 extremities. Sensation intact to light touch in 4 extremities.). Absent: motor sensory deficit - Psychiatric Psychiatric exam: Present: anxious. Absent: suicidal ideation - Skin Skin exam: Present: warm, dry, intact, normal color. Absent: rash ED Course Vital Signs 11/04/21 11/04/21 11/04/21 08:19 11:25 11:40 Temperature 98.8 F 98.4 F Pulse Rate 132 H 103 H Respiratory 24 16 Rate Blood Pressure 178/92 134/92 [Left] O2 Sat by Pulse 97 98 Oximetry O2 Sat by Pulse 99 Oximetry [ Digit-Finger] - Reevaluation(s) Reevaluation #1: 11/04/21 11:34 Differential diagnosis, including but not limited to: Alcohol dependence, alcohol withdrawal, anxiety, GERD, gastritis, electrolyte derangement, encounter for medical screening examination Assessment and plan: 56-year-old gentleman, who was afebrile, with reassuring vital signs, tachycardia resolved, on my examination, resting comfortably, in stretcher, in no acute distress, with a resting heart rate of 95 bpm. Laboratory studies reviewed and appreciated. Patient is much improved with Valium. Potassium supplementation will be administered. He is clinically sober. Furthermore, he has a significant other who can pick him up from the emergency room. Patient endorses readiness for discharge. He does not meet criteria for 1013 or 2013 at this time. We will refill his outpatient medications. - Pulse Oximetry Interpretation Digit-Finger Initial Pulse Oximetry Readin O2 Sat by Pulse Oximetry: 99 Actions Taken: none ED Medical Decision Making - Lab Data Result diagrams: 11/04/21 08:56 11/04/21 08:56 Vital Signs 11/04/21 11/04/21 08:19 11:25 Temperature 98.8 F 98.4 F Pulse Rate 132 H 103 H Respiratory 24 16 Rate Blood Pressure 178/92 134/92 [Left] O2 Sat by Pulse 97 98 Oximetry Lab Results 11/04/21 11/04/21 11/04/21 Range/Units 08:56 08:56 08:56 WBC 11.7 H (4.5-11.0) K/mm3 RBC 5.49 H (3.65-5.03) M/mm3 Hgb 16.4 H (11.8-15.2) gm/dl Hct 49.5 H (35.5-45.6) % MCV 90 (84-94) fl MCH 30 (28-32) pg MCHC 33 (32-34) % RDW 13.5 (13.2-15.2) % Plt Count 177 (140-440) K/mm3 Lymph % (Auto) 14.4 (13.4-35.0) % Glynn % (Auto) 2.3 (0.0-7.3) % Eos % (Auto) 0.0 (0.0-4.3) % Baso % (Auto) 0.5 (0.0-1.8) % Lymph # (Auto) 1.7 (1.2-5.4) K/mm3 Glynn # (Auto) 0.3 (0.0-0.8) K/mm3 Eos # (Auto) 0.0 (0.0-0.4) K/mm3 Baso # (Auto) 0.1 (0.0-0.1) K/mm3 Seg Neutrophils % 82.8 H (40.0-70.0) % Seg Neutrophils # 9.7 H (1.8-7.7) K/mm3 PT 13.1 (12.2-14.9) Sec. INR 0.89 (0.87-1.13) Sodium 140 (137-145) mmol/L Potassium 3.1 L (3.6-5.0) mmol/L Chloride 95.8 L (98-107) mmol/L Carbon Dioxide 22 (22-30) mmol/L Anion Gap 25 mmol/L BUN 16 (9-20) mg/dL Creatinine 0.8 (0.8-1.3) mg/dL Estimated GFR > 60 ml/min BUN/Creatinine Ratio 20 % Glucose 134 H (75-100) mg/dL Calcium 8.8 (8.4-10.2) mg/dL Magnesium 1.80 (1.7-2.3) mg/dL Total Bilirubin 0.90 (0.1-1.2) mg/dL AST 70 H (5-40) units/L ALT 34 (7-56) units/L Alkaline Phosphatase 66 (35-129) units/L Total Protein 8.3 H (6.3-8.2) g/dL Albumin 4.8 (3.9-5) g/dL Albumin/Globulin Ratio 1.4 % Lipase 40 (13-60) units/L Salicylates (2.8-20.0) mg/dL Acetaminophen (10.0-30.0) ug/mL Plasma/Serum Alcohol (0-0.07) % 11/04/21 11/04/21 11/04/21 Range/Units 08:56 08:56 08:56 WBC (4.5-11.0) K/mm3 RBC (3.65-5.03) M/mm3 Hgb (11.8-15.2) gm/dl Hct (35.5-45.6) % MCV (84-94) fl MCH (28-32) pg MCHC (32-34) % RDW (13.2-15.2) % Plt Count (140-440) K/mm3 Lymph % (Auto) (13.4-35.0) % Glynn % (Auto) (0.0-7.3) % Eos % (Auto) (0.0-4.3) % Baso % (Auto) (0.0-1.8) % Lymph # (Auto) (1.2-5.4) K/mm3 Glynn # (Auto) (0.0-0.8) K/mm3 Eos # (Auto) (0.0-0.4) K/mm3 Baso # (Auto) (0.0-0.1) K/mm3 Seg Neutrophils % (40.0-70.0) % Seg Neutrophils # (1.8-7.7) K/mm3 PT (12.2-14.9) Sec. INR (0.87-1.13) Sodium (137-145) mmol/L Potassium (3.6-5.0) mmol/L Chloride (98-107) mmol/L Carbon Dioxide (22-30) mmol/L Anion Gap mmol/L BUN (9-20) mg/dL Creatinine (0.8-1.3) mg/dL Estimated GFR ml/min BUN/Creatinine Ratio % Glucose (75-100) mg/dL Calcium (8.4-10.2) mg/dL Magnesium (1.7-2.3) mg/dL Total Bilirubin (0.1-1.2) mg/dL AST (5-40) units/L ALT (7-56) units/L Alkaline Phosphatase (35-129) units/L Total Protein (6.3-8.2) g/dL Albumin (3.9-5) g/dL Albumin/Globulin Ratio % Lipase (13-60) units/L Salicylates 1.9 L (2.8-20.0) mg/dL Acetaminophen 5.0 L (10.0-30.0) ug/mL Plasma/Serum Alcohol 0.14 H (0-0.07) % Critical care attestation.: If time is entered above; I have spent that time in minutes in the direct care of this critically ill patient, excluding procedure time. ED Disposition Clinical Impression: Hypokalemia, Hypertension, Alcohol dependence, Medication refill Disposition: 01 HOME / SELF CARE / HOMELESS Is pt being admited?: No Does the pt Need Aspirin: No Condition: Good Instructions: Alcohol Abuse and Dependence Information, Adult, Hypertension, Adult, Hypertension (ED) Additional Instructions: Recommend that patient abstain/avoid consumption of alcohol. Long-term consumption of alcohol may cause irreversible organ damage. We also recommend that the patient avoid consumption of heavy and spicy foods. Drink at least 6 cups of water per day, take the blood pressure medication as directed, and prescribed medications as needed and directed. We recommend follow-up with your primary care doctor in 5 to 7 days for repeat checkup and evaluation. Recommend that patient consume foods that are high in potassium and magnesium, such as potatoes, avocado, and banana. Do not drive or operate motor vehicles for the next 24 hours. Please return to the emergency room right away with new pain, worsened pain, migration of pain, projectile vomiting, change in mental status, confusion, in ability tolerate liquid feeds, new, worsened or different symptoms not present on the initial emergency room evaluation Prescriptions: B Complex W/Vitamin C [Allbee with C] 1 each PO QDAY #30 tablet dilTIAZem CD [Cardizem CD] 120 mg PO QDAY #30 capsule [place]-3 Fatty Acids/Fish Oil [Fish Oil] 1,000 mg PO QDAY #30 capsule Folic Acid [Folvite] 1 mg PO DAILY #30 tablet chlordiazePOXIDE [Librium] 25 mg PO Q6H PRN #25 capsule PRN Reason: Alcohol Withdrawal Magnesium Oxide [Mag-Ox] 200 mg PO QDAY #30 tablet Multivitamin Tab [Multiple Vitamin TAB (Theragran)] 1 each PO QDAY #30 tablet Calc Carb/Vit D 500 mg-200 Uni [Oysco D 500 mg-200 Unit] 1 each PO QDAY #30 tablet Thiamine [Vitamin B-1] 100 mg PO QDAY #30 tablet Referrals: [facility] [Provider Group] - 7-10 days
[2021-11-04 09:35] LABS: Alanine Aminotransferase 34 units/L (7-56); Albumin 4.8 g/dL (3.9-5); BUN/Creatinine Ratio 20; Blood Urea Nitrogen 16 mg/dL (9-20); Calcium 8.8 mg/dL (8.4-10.2); Hemolysis Index 8
[2021-11-04 09:36] LABS: Basophils # (Auto) 0.1 K/mm3 (0.0-0.1); Basophils % (Auto) 0.5 % (0.0-1.8); Hematocrit 49.5 % (35.5-45.6); Hemoglobin 16.4 gm/dl (11.8-15.2); Lymphocytes # (Auto) 1.7 K/mm3 (1.2-5.4); Lymphocytes % (Auto) 14.4 % (13.4-35.0); Mean Corpuscular HGB Conc 33 % (32-34); Mean Corpuscular Volume 90 fl (84-94); Monocytes # (Auto) 0.3 K/mm3 (0.0-0.8); Monocytes % (Auto) 2.3 % (0.0-7.3); Platelet Count 177 K/mm3 (140-440); Red Blood Count 5.49 M/mm3 (3.65-5.03); Red Cell Distribution Width 13.5 % (13.2-15.2)
[2021-11-04] MEDS ORDERED: THIAMINE 100 MG, FOLIC ACID 1 MG, MULTIPLE VITAMIN INJ, ADULT 10 ML in SODIUM CHLORIDE ... IV ONE (09:46)
[2021-11-04 09:47] LABS: INR 0.89 (0.87-1.13)
[2021-11-04] MEDS ORDERED: POTASSIUM CHLORIDE ER 20 MEQ TAB PO ONE (11:10)
[2021-11-04 11:26] VITALS: BP 134/92
[2021-11-04] MEDS ORDERED: POTASSIUM CHLORIDE 10 MEQ 10 MEQ/100 ML BAG IV SCH (12:00)
--- NOTE | 2021-11-04 13:32 | Electrocardiograph Report ---
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
== END 2021-11-04 11:59 | disposition home or self-care (01) ==
LOC: ED 08:15
DX: E87.6 Hypokalemia (principal); F10.20 Alcohol dependence, uncomplicated; I10 Essential (primary) hypertension
CPT/HCPCS: 36415; 80053; 83690; 83735; 85025; 85610; 93005; 96361; 96365; 96366; 96375; 99283; C9113; J2060; J2765; J3360; J3411; J3490; J7030; J7120; 80320; Q0162; G0480

== ENCOUNTER 2022-01-09 05:43 | Emergency (ER) | payer OTHER ==
[2022-01-09 05:48] VITALS: BP 132/93
[2022-01-09] MEDS ORDERED: SODIUM CHLORIDE 0.9% 1000 ML 1,000 ML IV ONE (06:11)
--- NOTE | 2022-01-09 06:21 | Emergency Department Report ---
ED Alcohol HPI - General Chief Complaint: Alcohol Stated Complaint: HYPERTENSION Time Seen by Provider: 01/09/22 06:04 Source: patient Mode of arrival: Ambulatory Limitations: No Limitations - History of Present Illness Initial Comments: This is a 56-year-old male nontoxic, well nourished in appearance, no acute signs of distress presents to the ED with c/o of high blood pressure. Patient also stated he had a alcoholic beverage last night around 1999. Patient otherwise denies any other complaints or symptoms. Patient denies any chest pain, shortness of breath, fever, chills, nausea, vomiting, headache, stiff neck, blurry vision, visual changes, suicidal or homicidal ideation, or psychiatric conditions. Patient otherwise denies any other complaints or symptoms. MD Complaint: alcohol dependence Time Since Last Drink: 1 -: days(s) Chronic Alcohol Use: Yes Previous Visits for Alcohol Intoxication?: Yes Recent Trauma: No Associated Symptoms: denies other symptoms. denies: nausea, vomiting, syncope, seizure, diaphoresis, tremors, abdominal pain, hematemesis, melena, depression, suicidality Treatments Prior to Arrival: none - Related Data Previous Rx's Medication Instructions Recorded Last Taken Type B Complex W/Vitamin C [Allbee with 1 each PO QDAY #30 tablet 11/04/21 Unknown Rx C] Calc Carb/Vit D 500 mg-200 Uni 1 each PO QDAY #30 tablet 11/04/21 Unknown Rx [[place]co D 500 mg-200 Unit] Folic Acid [Folvite] 1 mg PO DAILY #30 tablet 11/04/21 Unknown Rx Magnesium Oxide [Mag-Ox] 200 mg PO QDAY #30 tablet 11/04/21 Unknown Rx Multivitamin Tab [Multiple Vitamin 1 each PO QDAY #30 tablet 11/04/21 Unknown Rx TAB (Theragran)] [place]-3 Fatty Acids/Fish Oil [Fish 1,000 mg PO QDAY #30 capsule 11/04/21 Unknown Rx Oil] Thiamine [Vitamin B-1] 100 mg PO QDAY #30 tablet 11/04/21 Unknown Rx chlordiazePOXIDE [Librium] 25 mg PO Q6H PRN #25 capsule 11/04/21 Unknown Rx dilTIAZem CD [Cardizem CD] 120 mg PO QDAY #30 capsule 11/04/21 Unknown Rx Allergies Allergy/AdvReac Type Severity Reaction Status Date / Time No Known Allergies Allergy Verified 11/04/21 08:23 ED Review of Systems ROS: Stated complaint: HYPERTENSION Other details as noted in HPI Comment: All other systems reviewed and negative Constitutional: denies: chills, fever Eyes: denies: eye pain, eye discharge, vision change ENT: denies: ear pain, throat pain Respiratory: denies: cough, shortness of breath, wheezing Cardiovascular: denies: chest pain, palpitations Endocrine: no symptoms reported Gastrointestinal: denies: abdominal pain, nausea, diarrhea Genitourinary: denies: urgency, dysuria Musculoskeletal: denies: back pain, joint swelling, arthralgia Skin: denies: rash, lesions Neurological: denies: headache, weakness, paresthesias Psychiatric: denies: anxiety, depression, auditory hallucinations, visual hallucinations, homicidal thoughts, suicidal thoughts Hematological/Lymphatic: denies: easy bleeding, easy bruising ED Past Medical Hx - Past Medical History Previous Medical History?: Yes Hx Hypertension: Yes Hx Seizures: Yes (12 years ago) Hx Psychiatric Treatment: Yes (ETOH abuse) Additional medical history: Alcohol abuse - Surgical History Past Surgical History?: Yes Additional Surgical History: right knee surgery - Social History Smoking Status: Never Smoker Substance Use Type: None - Medications Home Medications: Home Medications Medication Instructions Recorded Confirmed Last Taken Type B Complex W/Vitamin C [Allbee with 1 each PO QDAY #30 tablet 11/04/21 Unknown Rx C] Calc Carb/Vit D 500 mg-200 Uni 1 each PO QDAY #30 tablet 11/04/21 Unknown Rx [[place]ysco D 500 mg-200 Unit] Folic Acid [Folvite] 1 mg PO DAILY #30 tablet 11/04/21 Unknown Rx Magnesium Oxide [Mag-Ox] 200 mg PO QDAY #30 tablet 11/04/21 Unknown Rx Multivitamin Tab [Multiple Vitamin 1 each PO QDAY #30 tablet 11/04/21 Unknown Rx TAB (Theragran)] [place]-3 Fatty Acids/Fish Oil [Fish 1,000 mg PO QDAY #30 capsule 11/04/21 Unknown Rx Oil] Thiamine [Vitamin B-1] 100 mg PO QDAY #30 tablet 11/04/21 Unknown Rx chlordiazePOXIDE [Librium] 25 mg PO Q6H PRN #25 capsule 11/04/21 Unknown Rx dilTIAZem CD [Cardizem CD] 120 mg PO QDAY #30 capsule 11/04/21 Unknown Rx ED Physical Exam - General Limitations: No Limitations General appearance: alert, in no apparent distress - Head Head exam: Present: atraumatic, normocephalic - Eye Eye exam: Present: normal appearance, PERRL, EOMI - ENT ENT exam: Present: normal exam, normal orophraynx - Neck Neck exam: Present: normal inspection, full ROM. Absent: tenderness, meningismus, lymphadenopathy - Respiratory Respiratory exam: Present: normal lung sounds bilaterally. Absent: respiratory distress, wheezes, rales, rhonchi, stridor, chest wall tenderness, accessory muscle use, decreased breath sounds, prolonged expiratory - Cardiovascular Cardiovascular Exam: Present: regular rate, normal rhythm, normal heart sounds. Absent: irregular rhythm, systolic murmur, diastolic murmur, rubs, gallop - GI/Abdominal GI/Abdominal exam: Present: soft, normal bowel sounds. Absent: distended, tenderness, guarding, rebound, rigid - Extremities Exam Extremities exam: Present: normal inspection, full ROM, normal capillary refill. Absent: tenderness - Back Exam Back exam: Present: normal inspection, full ROM. Absent: tenderness, CVA tenderness (R), CVA tenderness (L), muscle spasm, paraspinal tenderness, vertebral tenderness, rash noted - Neurological Exam Neurological exam: Present: alert, oriented X3, normal gait - Psychiatric Psychiatric exam: Present: normal affect, normal mood. Absent: depressed, agitated, anxious, flat affect, manic, homicidal ideation, suicidal ideation - Skin Skin exam: Present: warm, dry, intact, normal color. Absent: rash ED Course Vital Signs 01/09/22 05:46 Temperature 98.2 F Pulse Rate 97 H Respiratory 18 Rate Blood Pressure 132/93 O2 Sat by Pulse 97 Oximetry - Reevaluation(s) Reevaluation #1: 01/09/22 06:22 Patient is speaking in full sentences with no signs of distress noted. ED Medical Decision Making - Medical Decision Making 56-year old male that presents with concerns of hypertension and alcohol abuse. Patient is stable and was examined by me. Physical exam does not show any intoxication at this time. Laboratory has been obtained. EKG ordered. ED medical treatment ordered. After I evaluated patient patient stated he needs to go to [facility]. I instructed patient's of my concerns and further evaluation and possible treatment the patient refused. Patient educated on risk factors and if not properly examined, treated severe disability and or can occur but p atient still refused and sign against medical advise. Patient was instructed to follow-up with a primary care doctor as soon as possible or if symptoms worsen and continue return to emergency room as soon as possible. At time of signing against medical advise, the patient does not seem toxic or ill in appearance. No acute signs of distress noted. No further questions noted by the patient. Critical care attestation.: If time is entered above; I have spent that time in minutes in the direct care of this critically ill patient, excluding procedure time. ED Disposition Clinical Impression: Alcoholism with alcohol dependence Qualifiers: Substance use status: uncomplicated Qualified Code(s): F10.20 - Alcohol dependence, uncomplicated Disposition: 07 LEFT AWOL/ELOPED Is pt being admited?: No Condition: Undetermined Additional Instructions: Follow-up with a primary care doctor as soon as possible or if symptoms worsen and continue return to emergency room as soon as possible. You are leaving AGAINST MEDICAL ADVICE. As instructed and educated to you during your ED stay that this is a serious medical condition and if not further evaluated and or treated this could cause serious complications and or . Referrals: PRIMARY CAREMD [Referring] - RADHA HOUSER MD [Staff Physician] - [facility] [Outside] - [facility] [Provider Group] - [facility] Forms: AMA Form Time of Disposition: 06:24
== END 2022-01-09 06:10 | disposition left against medical advice (07) ==
LOC: ED 05:43
DX: F10.20 Alcohol dependence, uncomplicated (principal); I10 Essential (primary) hypertension
CPT/HCPCS: 99281

== ENCOUNTER 2022-01-09 16:05 | Emergency (ER) | payer OTHER ==
[2022-01-09] MEDS ORDERED: SODIUM CHLORIDE 0.9% 1000 ML 1,000 ML IV ONE (16:19)
[2022-01-09] MEDS ORDERED: NALOXONE 0.4 MG/1 ML INJ IV ONE (16:19)
[2022-01-09] MEDS ORDERED: THIAMINE 100 MG, FOLIC ACID 1 MG, MULTIPLE VITAMIN INJ, ADULT 10 ML in SODIUM CHLORIDE ... IV ONE (16:21)
[2022-01-09] MEDS ORDERED: LORazepam 2 MG/ML VIAL IV ONE (16:28)
--- NOTE | 2022-01-09 16:44 | XRay Report ---
CHEST 1 VIEW 01/09/2022 4:24 PM INDICATION / CLINICAL INFORMATION: Alcohol Intoxication. COMPARISON: 12/07/2019 FINDINGS: SUPPORT DEVICES: None. HEART / MEDIASTINUM: No significant abnormality. LUNGS / PLEURA: No significant pulmonary or pleural abnormality. No pneumothorax. ADDITIONAL FINDINGS: No significant additional findings. IMPRESSION: 1. No acute findings. Signer Name: Jorge Fernández DO Signed: 01/09/2022 4:40 PM Workstation Name: [id number]
[2022-01-09 17:04] LABS: Basophils # (Auto) 0.1 K/mm3 (0.0-0.1); Basophils % (Auto) 0.7 % (0.0-1.8); Eosinophils % (Auto) 0.1 % (0.0-4.3); Hematocrit 43.1 % (35.5-45.6); Hemoglobin 14.3 gm/dl (11.8-15.2); Lymphocytes # (Auto) 1.8 K/mm3 (1.2-5.4); Lymphocytes % (Auto) 24.1 % (13.4-35.0); Mean Corpuscular HGB Conc 33 % (32-34); Mean Corpuscular Volume 92 fl (84-94); Monocytes # (Auto) 0.6 K/mm3 (0.0-0.8); Monocytes % (Auto) 7.2 % (0.0-7.3); Red Blood Count 4.68 M/mm3 (3.65-5.03); Red Cell Distribution Width 15.2 % (13.2-15.2)
[2022-01-09 17:15] LABS: INR 0.86 (0.87-1.13)
[2022-01-09 17:31] LABS: Alanine Aminotransferase 34 units/L (7-56); Albumin 4.9 g/dL (3.9-5); Blood Urea Nitrogen 11 mg/dL (9-20); Calcium 9.2 mg/dL (8.4-10.2); Hemolysis Index 102
[2022-01-09 17:32] LABS: BUN/Creatinine Ratio 16
[2022-01-09 17:40] LABS: Platelet Count 107 K/mm3 (140-440)
--- NOTE | 2022-01-09 18:27 | Emergency Department Report ---
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) Chronic Alcohol Use: Yes Previous Visits for Alcohol Intoxication?: Yes Recent Trauma: No Associated Symptoms: diaphoresis, tremors Treatments Prior to Arrival: none - Related Data Previous Rx's Medication Instructions Recorded Last Taken Type B Complex W/Vitamin C [Allbee with 1 each PO QDAY #30 tablet 11/04/21 Unknown Rx C] Calc Carb/Vit D 500 mg-200 Uni 1 each PO QDAY #30 tablet 11/04/21 Unknown Rx [[place] D 500 mg-200 Unit] Folic Acid [Folvite] 1 mg PO DAILY #30 tablet 11/04/21 Unknown Rx Magnesium Oxide [Mag-Ox] 200 mg PO QDAY #30 tablet 11/04/21 Unknown Rx Multivitamin Tab [Multiple Vitamin 1 each PO QDAY #30 tablet 11/04/21 Unknown Rx TAB (Theragran)] [place]-3 Fatty Acids/Fish Oil [Fish 1,000 mg PO QDAY #30 capsule 11/04/21 Unknown Rx Oil] Thiamine [Vitamin B-1] 100 mg PO QDAY #30 tablet 11/04/21 Unknown Rx chlordiazePOXIDE [Librium] 25 mg PO Q6H PRN #25 capsule 11/04/21 Unknown Rx dilTIAZem CD [Cardizem CD] 120 mg PO QDAY #30 capsule 11/04/21 Unknown Rx Allergies Allergy/AdvReac Type Severity Reaction Status Date / Time No Known Allergies Allergy Verified 11/04/21 08:23 ED Review of Systems ROS: Stated complaint: NAUSEA/VOMITING/SHAKES Other details as noted in HPI Constitutional: denies: chills, fever Eyes: denies: eye pain, eye discharge, vision change ENT: denies: ear pain, throat pain Respiratory: denies: cough, shortness of breath, wheezing Cardiovascular: denies: chest pain, palpitations Endocrine: no symptoms reported Gastrointestinal: denies: abdominal pain, nausea, diarrhea Genitourinary: denies: urgency, dysuria Musculoskeletal: denies: back pain, joint swelling, arthralgia Skin: denies: rash, lesions Neurological: denies: headache, weakness, paresthesias Psychiatric: denies: anxiety, depression Hematological/Lymphatic: denies: easy bleeding, easy bruising ED Past Medical Hx - Past Medical History Previous Medical History?: Yes Hx Hypertension: Yes Hx Seizures: Yes (12 years ago) Hx Psychiatric Treatment: Yes (ETOH abuse) Additional medical history: Alcohol abuse - Surgical History Additional Surgical History: right knee surgery - Social History Smoking Status: Never Smoker Substance Use Type: Alcohol - Medications Home Medications: Home Medications Medication Instructions Recorded Confirmed Last Taken Type B Complex W/Vitamin C [Allbee with 1 each PO QDAY #30 tablet 11/04/21 Unknown Rx C] Calc Carb/Vit D 500 mg-200 Uni 1 each PO QDAY #30 tablet 11/04/21 Unknown Rx [[place] D 500 mg-200 Unit] Folic Acid [Folvite] 1 mg PO DAILY #30 tablet 11/04/21 Unknown Rx Magnesium Oxide [Mag-Ox] 200 mg PO QDAY #30 tablet 11/04/21 Unknown Rx Multivitamin Tab [Multiple Vitamin 1 each PO QDAY #30 tablet 11/04/21 Unknown Rx TAB (Theragran)] [place]-3 Fatty Acids/Fish Oil [Fish 1,000 mg PO QDAY #30 capsule 11/04/21 Unknown Rx Oil] Thiamine [Vitamin B-1] 100 mg PO QDAY #30 tablet 11/04/21 Unknown Rx chlordiazePOXIDE [Librium] 25 mg PO Q6H PRN #25 capsule 11/04/21 Unknown Rx dilTIAZem CD [Cardizem CD] 120 mg PO QDAY #30 capsule 11/04/21 Unknown Rx ED Physical Exam - General Limitations: No Limitations General appearance: alert, in no apparent distress, other (shaky ) - Head Head exam: Present: atraumatic, normocephalic - Eye Eye exam: Present: normal appearance - ENT ENT exam: Present: mucous membranes moist - Neck Neck exam: Present: normal inspection - Respiratory Respiratory exam: Present: normal lung sounds bilaterally. Absent: respiratory distress - Cardiovascular Cardiovascular Exam: Present: regular rate, tachycardia. Absent: systolic murmur, diastolic murmur, rubs, gallop - GI/Abdominal GI/Abdominal exam: Present: soft, normal bowel sounds - Rectal Rectal exam: Present: deferred - Extremities Exam Extremities exam: Present: normal inspection - Back Exam Back exam: Present: normal inspection - Neurological Exam Neurological exam: Present: alert, oriented X3 - Expanded Neurological Exam Expanded Neurological exam: Present: tremor - Psychiatric Psychiatric exam: Present: normal affect, normal mood - Skin Skin exam: Present: warm, dry, intact, normal color. Absent: rash ED Course Vital Signs 01/09/22 01/09/22 01/09/22 16:11 16:16 16:30 Temperature 98.0 F Pulse Rate 125 H 115 H Respiratory 23 21 Rate Blood Pressure 168/103 155/96 Blood Pressure 154/94 [Right] O2 Sat by Pulse 98 95 Oximetry 01/09/22 01/09/22 01/09/22 16:38 16:39 16:45 Temperature 97.6 F Pulse Rate 117 H 105 H Respiratory 20 21 Rate Blood Pressure 137/85 Blood Pressure 155/96 [Right] O2 Sat by Pulse 96 96 93 Oximetry 01/09/22 01/09/22 01/09/22 17:00 17:16 17:30 Temperature Pulse Rate 96 H 88 Respiratory 18 16 Rate Blood Pressure 137/85 141/83 Blood Pressure [Right] O2 Sat by Pulse 92 95 95 Oximetry - Reevaluation(s) Reevaluation #1: 01/09/22 18:23 work up showed some acidosis and gap, fluids given and banana bag , ativan given with major improvement , pt refused to stay and he requested to go home, , explained the risks of etoh withdrawal and he is aware and verbalized understanding , he will see help with etoh ED Medical Decision Making - Lab Data Result diagrams: 01/09/22 16:31 01/09/22 16:31 Critical care attestation.: If time is entered above; I have spent that time in minutes in the direct care of this critically ill patient, excluding procedure time. ED Disposition Clinical Impression: Alcohol abuse, Alcohol withdrawal Disposition: 01 HOME / SELF CARE / HOMELESS Is pt being admited?: No Does the pt Need Aspirin: No Condition: Stable Instructions: Alcohol Use Disorder, Alcohol Withdrawal Syndrome
[2022-01-09 18:51] VITALS: BP 141/84
--- NOTE | 2022-01-10 12:32 | Electrocardiograph Report ---
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
== END 2022-01-09 19:00 | disposition home or self-care (01) ==
LOC: ED 16:05
DX: F10.10 Alcohol abuse, uncomplicated (principal); I10 Essential (primary) hypertension
CPT/HCPCS: 36415; 71045; 80053; 83690; 83735; 85025; 85610; 93005; 93010; 96365; 96366; 96375; 99284; J2060; J3411; J3490; J7030; 80320; Q0162; G0480

== ENCOUNTER 2022-04-16 20:47 | Emergency (ER) | payer OTHER ==
[2022-04-16] MEDS ORDERED: SODIUM CHLORIDE 0.9% 1000 ML 1,000 ML IV ONE ×2 (22:05→23:57)
[2022-04-16] MEDS ORDERED: THIAMINE 100 MG, FOLIC ACID 1 MG, MULTIPLE VITAMIN INJ, ADULT 10 ML in SODIUM CHLORIDE ... IV ONE (22:05)
[2022-04-16] MEDS ORDERED: LORazepam 2 MG/ML VIAL IV ONE (22:05)
--- NOTE | 2022-04-16 22:12 | Emergency Department Report ---
ED Alcohol HPI - General Chief Complaint: Alcohol Stated Complaint: ALCOHOL WITHDRAWAL Time Seen by Provider: 04/16/22 21:48 Source: patient, family Mode of arrival: Ambulatory Limitations: No Limitations - History of Present Illness Initial Comments: 56-year-old male with history of alcohol abuse who presents with generalized shakiness and concern for alcohol withdrawal. Patient reported that last time alcohol intake was 6 PM last night. The family member that was in the examination room with the patient reported that he is going through depression. Patient denies any suicidal or homicidal ideation. Patient reports history of DT as a result of alcohol withdrawal in the past. No other modifying or associated factors reported. - Related Data Previous Rx's Medication Instructions Recorded Last Taken Type Ondansetron [Zofran Odt] 4 mg PO Q8HR 5 Days #15 tab.rapdis 04/16/22 Unknown Rx NS chlordiazePOXIDE [Librium] 25 mg PO Q6H 10 Days #30 cap NS 04/16/22 Unknown Rx Allergies Allergy/AdvReac Type Severity Reaction Status Date / Time No Known Allergies Allergy Verified 04/16/22 22:52 ED Review of Systems ROS: Stated complaint: ALCOHOL WITHDRAWAL Other details as noted in HPI Comment: All other systems reviewed and negative Neurological: paresthesias, other (Generalized body shakiness) Psychiatric: other (Alcohol withdrawal) ED Past Medical Hx - Past Medical History Hx Hypertension: Yes Hx Seizures: Yes (12 years ago) Hx Psychiatric Treatment: Yes (ETOH abuse, depression) Additional medical history: Alcohol abuse - Surgical History Additional Surgical History: right knee surgery - Social History Smoking Status: Current Every Day Smoker - Medications Home Medications: Home Medications Medication Instructions Recorded Confirmed Last Taken Type Ondansetron [Zofran Odt] 4 mg PO Q8HR 5 Days #15 tab.rapdis 04/16/22 Unknown Rx NS chlordiazePOXIDE [Librium] 25 mg PO Q6H 10 Days #30 cap NS 04/16/22 Unknown Rx ED Physical Exam - General Limitations: No Limitations General appearance: alert, in no apparent distress, anxious - Head Head exam: Present: atraumatic, normal inspection - Eye Eye exam: Present: normal appearance Pupils: Present: normal accommodation - ENT ENT exam: Present: normal exam, normal orophraynx, mucous membranes moist - Neck Neck exam: Present: normal inspection, full ROM. Absent: tenderness - Respiratory Respiratory exam: Present: normal lung sounds bilaterally. Absent: respiratory distress, accessory muscle use (Anxious) - Cardiovascular Cardiovascular Exam: Present: tachycardia, normal heart sounds - GI/Abdominal GI/Abdominal exam: Present: soft, normal bowel sounds. Absent: distended, tenderness - Extremities Exam Extremities exam: Present: normal inspection, normal capillary refill. Absent: tenderness - Back Exam Back exam: Present: normal inspection. Absent: tenderness - Neurological Exam Neurological exam: Present: alert, oriented X3, other (Generalized body shakiness) - Psychiatric Psychiatric exam: Present: normal affect, normal mood, anxious - Skin Skin exam: Present: warm, intact ED Course Vital Signs 04/16/22 04/16/22 04/16/22 20:52 21:15 21:31 Temperature 98.5 F Pulse Rate 142 H 135 H Respiratory 18 29 H Rate Blood Pressure 158/105 169/113 O2 Sat by Pulse 93 95 94 Oximetry 04/16/22 04/16/22 04/16/22 21:45 22:01 22:15 Temperature Pulse Rate 139 H 133 H 137 H Respiratory 26 H 22 20 Rate Blood Pressure 157/101 169/113 138/101 O2 Sat by Pulse 95 93 Oximetry 04/16/22 04/16/22 04/16/22 22:31 22:45 22:49 Temperature Pulse Rate 140 H 128 H Respiratory 22 21 Rate Blood Pressure 157/101 157/101 O2 Sat by Pulse 95 100 Oximetry 04/16/22 04/16/22 04/16/22 23:01 23:15 23:31 Temperature Pulse Rate 124 H 130 H 129 H Respiratory 23 21 21 Rate Blood Pressure 165/105 145/106 152/106 O2 Sat by Pulse 94 92 96 Oximetry - Reevaluation(s) Reevaluation #1: 04/16/22 22:10 Here with the possibility of alcohol withdrawal with generalized body shakiness--differential could be and not limited to alcohol withdrawal, anxiety, and or alcohol intoxication--as a result we will go ahead and order routine labs that include drug screen, CBC, CMP, thyroid profile, for any correctable cause. We will also start patient on alcohol withdrawal protocol by giving 1 mg of Ativan and IV fluids NS 1 L bolus. Reevaluation #2: 04/16/22 23:32 Noted with alcohol level 0.22 -- this is likely alcohol intoxication as opposed witdrawal-- will continue to hydrate. Pt did not appeared to be intoxicated at this point. I encouraged patient to cut back on his alcohol abuse and will discharge home on Librium and multivitamin Reevaluation #3: 04/16/22 23:57 Pt signed out to Dr Trujillo while patient been treated with his 2nd liter ivf ns for hydration. I am anticipating this patient been discharge home with improvement in symptoms. He is been prescribed Librium and Zofran ODT and close followup with warnings. Reevaluation #4: 04/17/22 00:03 I reevaluated this patient and discussed discharge plan with him he actually told me that he is feeling much better at this point. And he agreed with discharge home on the prescription of Zofran ODT and Librium. ED Medical Decision Making - Lab Data Result diagrams: 04/16/22 22:29 04/16/22 22:29 - EKG Data -: EKG Interpreted by Me EKG shows normal: sinus rhythm Rate: tachycardia - EKG Data 04/16/22 23:31 Noted with sinus tachycardia at a rate of 127 bpm, normal QTC with left atrial enlargement and but no ST elevation or depression in this abnormal ECG. Critical care attestation.: If time is entered above; I have spent that time in minutes in the direct care of this critically ill patient, excluding procedure time. ED Disposition Clinical Impression: Alcohol abuse, Hypermagnesemia Alcohol withdrawal Qualifiers: Complication of substance-induced condition: with unspecified complication Qualified Code(s): F10.239 - Alcohol dependence with withdrawal, unspecified Disposition: 30 STILL A PATIENT Is pt being admited?: No Does the pt Need Aspirin: No Condition: Stable Instructions: Alcohol Use Disorder, Alcohol Abuse and Dependence Information, Adult, Alcohol Abuse and Nutrition, Alcohol Withdrawal Syndrome, [id number] Additional Instructions: Cut back or avoid alcohol in excess for your overall health Take your new medication as prescribed to continue to help your symptoms and prevent/reduce withdrawal Increase your daily fluid to help your hydration Call and schedule follow-up with your primary doctor in the next 3 to 4 days for progress Please do not hesitate to call or return to emergency room if your symptoms worsen Prescriptions: chlordiazePOXIDE [Librium] 25 mg PO Q6H 10 Days #30 cap NS Ondansetron [Zofran Odt] 4 mg PO Q8HR 5 Days #15 tab.rapdis NS
[2022-04-16] MEDS ORDERED: ONDANSETRON 4 MG/2 ML INJ ONE (22:43)
[2022-04-16] MEDS ORDERED: ONDANSETRON 4 MG/2 ML INJ IV ONE (22:45)
[2022-04-16 23:08] LABS: Basophils # (Auto) 0.1 K/mm3 (0.0-0.1); Basophils % (Auto) 0.4 % (0.0-1.8); Hematocrit 49.1 % (35.5-45.6); Hemoglobin 16.7 gm/dl (11.8-15.2); Lymphocytes # (Auto) 2.1 K/mm3 (1.2-5.4); Lymphocytes % (Auto) 17.5 % (13.4-35.0); Mean Corpuscular HGB Conc 34 % (32-34); Mean Corpuscular Volume 91 fl (84-94); Monocytes # (Auto) 0.5 K/mm3 (0.0-0.8); Platelet Count 194 K/mm3 (140-440); Red Blood Count 5.41 M/mm3 (3.65-5.03); Red Cell Distribution Width 14.8 % (13.2-15.2)
[2022-04-16 23:21] LABS: INR 0.85 (0.87-1.13); Partial Thromboplastin Time 24.1 Sec. (24.2-36.6)
[2022-04-16 23:36] LABS: Alanine Aminotransferase 23 units/L (7-56); Albumin 5.3 g/dL (3.9-5); BUN/Creatinine Ratio 9; Blood Urea Nitrogen 8 mg/dL (9-20); Calcium 9.8 mg/dL (8.4-10.2); Hemolysis Index 8
[2022-04-17 01:04] VITALS: BP 162/104
--- NOTE | 2022-04-17 14:05 | Electrocardiograph Report ---
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
== END 2022-04-17 01:15 | disposition still patient (30) ==
LOC: ED 20:47
DX: F10.139 Alcohol abuse with withdrawal, unspecified (principal); I10 Essential (primary) hypertension; R56.9 Unspecified convulsions; F32.9 Major depressive disorder, single episode, unspecified; Z98.890 Other specified postprocedural states; F17.290 Nicotine dependence, other tobacco product, uncomplicated
CPT/HCPCS: 36415; 80053; 83690; 83735; 85025; 85610; 85730; 93005; 96365; 96366; 96375; 99284; J2060; J2405; J3411; J3490; J7030; 80320; G0480